=== PATIENT | female | born 1940 | race Caucasian/White ===

== ENCOUNTER 2021-02-02 14:15 | Inpatient (IN) | payer MEDICARE ==
[~2021-02-02] VITALS: Ht 154.9 cm; Wt 76.5 kg
--- NOTE | 2021-02-02 16:13 | Progress Note ---
Progress Note Postoperative anemia due to acute blood loss Closed fracture of left hip Closed fracture of neck of left femur Status post total replacement of left hip Closed subcapital fracture of left femur Closed fracture of left olecranon process Fall at home, initial encounterw Sinus tachycardia Probable sepsis Moderate episode of recurrent major depressive disorder Essential hypertension Anxiety disorder Type 2 diabetes mellitus with hyperglycemia, with long-term current use of insulin Gastroesophageal reflux disease Resolved Hospital Problems No resolved problems to display. Arpita gibbons 80 y.o.femalewho was admitted to [facility] on01/30/2021 Arpita gibbons 80 y.o.femaleadmitted for Closed subcapital fracture of left femur. Patient has a history of type II diabetes on insulin,GERD, anxiety and depression, and hypertension. Patient had a fall at home earlier today. She t ripped on a rock and landed on her left side on concrete. She was unable to get up or ambulate after the fall and also left elbow pain along with the left hip pain. Patient has a left olecranon fracture and a left femur fracture. Patient had elevated glucose and an elevated white count. She is also been having tachycardia. She states her blood sugar is high because she had eaten pizza for lunch and had not been home to take her insulin yet. S/p fall.s/p left femoral neck fracture s/p total left hip arthroplastyPOD 2. Left olecranon fracture s/p sling in place.Post operative management. Medically cleared for IPR. JEFF WASHBURN DO Feb 02, 2021 16:13
[2021-02-02] MEDS ORDERED: diphenhydrAMINE 25 MG TAB (BENADRYL) PO PRN (16:15)
[2021-02-02] MEDS ORDERED: ALPRAZolam 0.25 MG (XANAX) TAB PO PRN (16:15)
[2021-02-02] MEDS ORDERED: HYDROcodone/APAP 5 MG/325 MG (LORTAB) TAB PO PRN (16:15)
[2021-02-02] MEDS ORDERED: CALCIUM CARBONATE 500 MG (TUMS) TAB.CHEW PO PRN (16:15)
[2021-02-02] MEDS ORDERED: MELATONIN 3 MG TABLET PO PRN (16:15)
[2021-02-02] MEDS ORDERED: guaiFENesin/CODEINE (ROBITUSSIN AC) 10ML UDC PO PRN (16:15)
[2021-02-02] MEDS ORDERED: LOPERAMIDE 2 MG (IMODIUM) TABLET PO PRN (16:15)
[2021-02-02] MEDS ORDERED: DOCUSATE SODIUM 100 MG (COLACE) CAP PO PRN (16:15)
[2021-02-02] MEDS ORDERED: FLEET ENEMA ADULT 1 EA BTL PR PRN (16:15)
[2021-02-02] MEDS ORDERED: LACTULOSE SYRUP 10GM/15ML (ENULOSE) 30ML UDC PO PRN (16:15)
[2021-02-02] MEDS ORDERED: ONDANSETRON 4 MG (ZOFRAN) ORAL DISSOLVE TAB PO PRN (16:15)
[2021-02-02] MEDS ORDERED: BISACODYL 10 MG SUPP (DULCOLAX) PR PRN (16:15)
[2021-02-02 17:15] VITALS: BP 159/74
[2021-02-02] MEDS ORDERED: CYCLOBENZAPRINE 10 MG (FLEXERIL) TAB PO PRN (18:00)
[2021-02-02] MEDS: DOXYCYCLINE 100 MG (VIBRAMYCIN) TABLET PO SCH (19:55)
[2021-02-02 20:08] VITALS: BP 134/63
[2021-02-02] MEDS: FAMOTIDINE 20 MG (PEPCID) TABLET PO SCH (21:53)
[2021-02-02] MEDS: polyethylene glycoL POWDER 17 GM (MIRALAX) PACK PO SCH (21:53)
[2021-02-02] MEDS: SENNA W/DOCUSATE (SENOKOT S) TABLET PO SCH (21:54)
[2021-02-02] MEDS: DOCUSATE SODIUM 100 MG (COLACE) CAP PO SCH (21:54)
[2021-02-02] MEDS: inSUlin NPH (NovoLIN N) 1 UNIT/0.01 ML (CHARGE PER UNIT) SQ SCH (21:55)
[2021-02-02] MEDS: ACETAMINOPHEN 325 MG TABLET PO PRN (21:55)
[2021-02-02] MEDS: SIMvastatin 10 MG (ZOCOR) TAB PO SCH (21:55)
[2021-02-02] MEDS: inSUlin ASPART (NovoLOG) 1 UNIT/0.01 ML (CHARGE PER UNIT) SC SCH (22:03)
[2021-02-03] MEDS: inSUlin ASPART (NovoLOG) 1 UNIT/0.01 ML (CHARGE PER UNIT) SC SCH ×4 (06:00→21:33)
[2021-02-03 06:09] LABS: BASOPHILS # (AUTO) 0.1 10^3/uL (0.0-0.1); BASOPHILS % (AUTO) 1 % (0-10); EOSINOPHILS # (AUTO) 0.7 10^3/uL (0.0-0.3); EOSINOPHILS % (AUTO) 8 % (0-10); HEMATOCRIT 33 % (35-52); LYMPHOCYTES # (AUTO) 2.2 10^3/uL (1.0-4.0); LYMPHOCYTES % (AUTO) 25 % (12-44); MEAN CORPUSCULAR HEMOGLOBIN 29 pg (25-34); MEAN CORPUSCULAR HGB CONC 33 g/dL (32-36); MEAN CORPUSCULAR VOLUME 87 fL (80-99); MONOCYTES # (AUTO) 0.5 10^3/uL (0.0-1.0); MONOCYTES % (AUTO) 6 % (0-12); NEUTROPHILS # (AUTO) 5.3 10^3/uL (1.8-7.8); NEUTROPHILS % (AUTO) 60 % (42-75); PLATELET COUNT 204 10^3/uL (130-400); WHITE BLOOD COUNT 8.8 10^3/uL (4.3-11.0)
[2021-02-03] MEDS ORDERED: glipiZIDE XL 5 MG (GLUCOTROL XL) TAB PO SCH (06:30)
[2021-02-03] MEDS: VENlafaxine XR 75 MG (EFFEXOR XR) CAP PO SCH (06:36)
[2021-02-03] MEDS: DOXYCYCLINE 100 MG (VIBRAMYCIN) TABLET PO SCH ×2 (06:37→16:58)
[2021-02-03 07:00] LABS: ALBUMIN 3.3 GM/DL (3.2-4.5); CHLORIDE 106 MMOL/L (98-107); SODIUM 143 MMOL/L (135-145)
[2021-02-03 07:01] LABS: CALCIUM 8.9 MG/DL (8.5-10.1)
[2021-02-03 07:02] LABS: GLUCOSE 108 MG/DL (70-105)
[2021-02-03 07:03] LABS: TOTAL PROTEIN 5.8 GM/DL (6.4-8.2)
[2021-02-03 07:04] LABS: BILIRUBIN,TOTAL 0.6 MG/DL (0.1-1.0); CARBON DIOXIDE 27 MMOL/L (21-32)
[2021-02-03 07:06] LABS: ALKALINE PHOSPHATASE 57 U/L (40-136); CREATININE SERUM 0.72 MG/DL (0.60-1.30); GFR ESTIMATED > 60
[2021-02-03 07:07] LABS: BUN/CREATININE RATIO 19
[2021-02-03 07:09] LABS: ALANINE AMINOTRANSFERASE 19 U/L (0-55)
[2021-02-03 07:45] VITALS: BP 192/87
[2021-02-03] MEDS: polyethylene glycoL POWDER 17 GM (MIRALAX) PACK PO SCH ×2 (08:09→21:38)
[2021-02-03] MEDS: KCL 10 MEQ TAB (MICRO K) PO SCH ×2 (08:09→21:29)
[2021-02-03] MEDS: DOCUSATE SODIUM 100 MG (COLACE) CAP PO SCH ×2 (08:09→21:29)
[2021-02-03] MEDS: LOSARTAN 100 MG (COZAAR) TABLET PO SCH (08:09)
[2021-02-03] MEDS: FAMOTIDINE 20 MG (PEPCID) TABLET PO SCH (08:09)
[2021-02-03] MEDS: SENNA W/DOCUSATE (SENOKOT S) TABLET PO SCH ×2 (08:09→21:28)
[2021-02-03] MEDS: inSUlin NPH (NovoLIN N) 1 UNIT/0.01 ML (CHARGE PER UNIT) SQ SCH ×2 (08:24→21:33)
--- NOTE | 2021-02-03 08:48 | Physical Therapy Evaluation ---
PT Evaluation-General Medical Diagnosis Admission Date Feb 02, 2021 at 17:00 Medical Diagnosis: (L) hip fx Onset Date: Jan 30, 2021 Therapy Diagnosis Therapy Diagnosis: Impairment of gait and mobility Precautions Precautions/Isolations: Fall Prevention, Standard Precautions Weight Bear Status Right Lower Extremity: Right Full Weight Bearing Left Lower Extremity: Left Weight Bearing/Tolerated Referral Physician: Nette Lawson Reason for Referral: Evaluation/Treatment, Strengthening, Gait Medical History Pertinent Medical History: DM, Fractures, GERD, HTN Additional Medical History anxiety, depression, pelvic fx x 2, ankle fx, wrist fx Reviewed History: Yes Social History Home: Single Level Current Living Status: Spouse Entry Into Home: Stairs Without Railing PT Steps Into Home: 3 Pt reports her does all the grocery shopping and most of the cooking and cleaning. Prior Prior Level of Function SCALE: Activities may be completed with or without assistive devices. 8-Xvorliincy-uxcrpvz completes the activity by him/herself with no assistance from a helper. 5-Set-up or Clean-up Assistance-helper sets up or cleans up; patient completes activity. [place] assists only prior to or following the activity. 4-Supervision or Touching Assistance-helper provides verbal cues and/or touching/steadying and/or contact guard assistance as patient completes activity. Assistance may be provided throughout the activity or intermittently. 3-Partial/Moderate Assistance-helper does LESS THAN HALF the effort. [place] lifts, holds or supports trunk or limbs, but provides less than half the effort. 2-Substantial/Maximal Assistance-helper does MORE THAN HALF the effort. [place] lifts or holds trunk or limbs and provides more than half the effort. 7-Femsnizon-wsyfjw does ALL the effort. Patient does none of the effort to complete the activity. Or, the assistance of 2 or more helpers is required for the patient to complete the activity. If activity was not attempted, code reason: 7-Patient Refused. 9-Not Applicable-not attempted and the patient did not perform the activity before the current illness, exacerbation or injury. 10-Not Attempted due to Environmental Limitations-(lack of equipment, weather restraints, etc.). 88-Not Attempted due to Medical Conditions or Safety Concerns. Bed Mobility: 6 Transfers (B,C,W/C): 6 Gait: 6 Indoor Mobility (Ambulation): Independent Stairs: Needed Some Help PT Evaluation-Current Subjective 80 7/o female admitted to [facility] on 01/30/21 s/p fall with resulting (L) femur fx and (L) olecranon fx. Pt underwent (L) TUTU. Pain Numeric Pain Scale: 8 Location: Left Location Body Site: Hip Objective Patient Orientation: Person, Place, Time, Situation Attachments: Guerrero Catheter ROM/Strength ROM Lower Extremities (L) hip 60 degrees, (L) hip extension to neutral, Ankle DF to neutral (B) Strength Lower Extremities (L) knee 5/5, (L) hip flex 2/5, (L) hip ext 2/5, (L) hip abd 2/5, (R) 4/5 throughout Sensory Vision: Functional Hearing: Functional Transfers Roll Left & Right (QC): 1 Sit to Lying (QC): 1 Lying to Sitting/Side of Bed(Q: 1 Sit to Stand (QC): 2 Chair/Nyl-nk-Ovbfd Xfer(QC): 2 Toilet Transfer (QC): 1 Car Transfer (QC): 88 Pt max assist for bed mobility due to leg and trunk weakness. Weakness from disuse and pain inhibition. Gait Does the Patient Walk?: Yes Mode of Locomotion: Walk Anticipated Mode of Locomotion: Walk Walk 10 feet (QC): 2 Walk 50 ft with 2 Turns(QC): 88 Walk 150 ft (QC): 88 Walking 10ft/uneven surface-QC: 2 Gait Assistive Device: FWW Comments/Gait Description Platform walker, needs assist to advance walker and advance (L) leg, needs assist for wt shift and verbal cues for sequence Wheelchair Training Does the Pt Use a Wheelchair?: No Wheel 50 ft with 2 turns (QC): 9 Wheel 150 ft (QC): 9 Stairs 1 Step (curb) (QC): 88 4 Steps (QC): 88 12 Steps (QC): 88 Balance Sitting Static: Good Sitting Dynamic: Good Standing Static: Poor Standing Dynamic: Poor Picking up an Object (QC): 88 Assessment/Needs Pt has limited strength in the (L) LE. She has impaired bed mobility, reduced ability to transfer, and difficulty with gait. She will benefit from PT to improve strength, ROM, and function to promote discharge to home with . Pt has a history of falls and was inactive prior to this admission. This history of prior immobility will result in slower progress toward goals. Rehab Potential: Good PT Short Term Goals Short Term Goals Time Frame: Feb 10, 2021 Roll Left & Right: 4 Sit to lyin Lying to sitting on side of be: 4 Sit to stand: 4 Chair/fbr-ms-ualmf transfer: 4 Toilet transfer: 4 Car transfer: 3 Walk 10 feet: 4 Walk 50 feet with two turns: 4 PT Correction Goals Quote Clerk Goals PT Correction Goals Time Frame: Feb 17, 2021 Roll Left & Right (QC): 6 Sit to Lying (QC): 6 Lying-Sitting on Side/Bed(QC): 6 Sit to Stand (QC): 6 Chair/Qbr-if-Ligiq Xfer(QC): 6 Toilet Transfer (QC): 5 Car Transfer (QC): 5 Does the Patient Walk: Yes Walk 10 feet (QC): 5 Walk 50ft with 2 Turns (QC): 5 Walk 150 ft (QC): 5 Walking 10ft on Uneven Surface: 5 1 Step (curb) (QC): 5 4 Steps (QC): 5 12 Steps (QC): 88 Picking up an Object (QC): 88 Wheel 50 feet with 2 turns (QC: 9 Wheel 150 feet: 9 PT Plan Problem List Problem List: Activity Tolerance, Functional Strength, Safety, Balance, Gait, Transfer, Bed Mobility, ROM Treatment/Plan Treatment Plan: Continue Plan of Care Treatment Plan: Bed Mobility, Functional Activity Tamiko, Functional Strength, Group Therapy, Gait, Safety, Therapeutic Exercise, Transfers Treatment Duration: Feb 17, 2021 Frequency: 11 times per week Estimated Hrs Per Day: 1.5 hours per day Patient and/or Family Agrees t: Yes Discharge Recommendations Barriers to Progress pre-existing falls and immobility Target Placement home Time/GCodes Time In: 800 Time Out: 900 Total Billed Treatment Time: 60 Total Billed Treatment visit, eval high complexity 60 min MORIS MCCRACKEN PT Feb 03, 2021 08:48
--- NOTE | 2021-02-03 09:59 | Occupational Therapy Eval ---
OT Evaluation-General/PLF Medical Diagnosis Admission Date Feb 02, 2021 at 17:00 Medical Diagnosis: L TUTU (anterior); s/p ORIF L olecranon Onset Date: Jan 30, 2021 Therapy Diagnosis Therapy Diagnosis: Decreased ADL status Precautions Precautions/Isolations: Fall Prevention, Standard Precautions Weight Bear Status WBAT LLE, NWB LUE (however, use of platform walker for safety, inability to maintain with good safety) Referral Physician: Nette Lawson Referral Reason: Activity Tolerance, Self Care, Evaluation/Treatment, Strengthening/ROM Medical History Pertinent Medical History: DM, Fractures, GERD, HTN Additional Medical History DMII, GERD, anx/ dep, HTN, spinal surgery. Current History Pt fell at home, closed fx of L femur s/p L anterior TUTU and L elbow olecranon fx with ORIF/ sling placed. Reviewed History: Yes Social History Home: Single Level Current Living Status: Spouse Entry Into Home: Stairs Without Railing Steps Into Home: 3 ADL-Prior Level of Function SCALE: Activities may be completed with or without assistive devices. 7-Ermjnhtyhy-zxequps completes the activity by him/herself with no assistance from a helper. 5-Set-up or Clean-up Assistance-helper sets up or cleans up; patient completes activity. [place] assists only prior to or following the activity. 4-Supervision or Touching Assistance-helper provides verbal cues and/or touching/steadying and/or contact guard assistance as patient completes activity. Assistance may be provided throughout the activity or intermittently. 3-Partial/Moderate Assistance-helper does LESS THAN HALF the effort. [place] lifts, holds or supports trunk or limbs, but provides less than half the effort. 2-Substantial/Maximal Assistance-helper does MORE THAN HALF the effort. [place] lifts or holds trunk or limbs and provides more than half the effort. 1-Iacpfhqck-rletbz does ALL the effort. Patient does none of the effort to complete the activity. Or, the assistance of 2 or more helpers is required for the patient to complete the activity. If activity was not attempted, code reason: 7-Patient Refused. 9-Not Applicable-not attempted and the patient did not perform the activity before the current illness, exacerbation or injury. 10-Not Attempted due to Environmental Limitations-(lack of equipment, weather restraints, etc.). 88-Not Attempted due to Medical Conditions or Safety Concerns. ADL PLOF Comments Pt was IND with ADLs, completes IADLs (cooking/ cleaning) Self Care: Independent Functional Cognition: Independent DME/Equipment: Bath Bench, Tub/Shower DME/Equipment Comments walker, w/c, sc, tub/ shower. 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 Pt expresses fatigue, agrees to tx. Pt AxO, very pleasant pt. Pt expresses ache/ throbbing only in elbow region (constant); presents in wrapping and sling with elbow flexed at ~90*. Mental Status/Objective Patient Orientation: Person, Place, Situation, Normal For Age Attachments: Guerrero Catheter Current Glasses/Contacts: Yes Hearing Aids: No Dentures/Partials: No Hand Dominance: Right Upper Extremity ROM WFL BUE (excluding elbow/ supination and pronation and wrist mobilty due to soft splint LUE) Upper Extremity Coordination WFL BUE Upper Extremity Sensation WFL BUE (no tingling/ numbness) Upper Extremity Strength WFL BUE (excluding elbow/ wrist/ forearm DNT LUE) ADL-Treatment Eating (QC): 5 (s/u for some tasks.) Oral Hygiene (QC): 6 (able to manipulate and complete with IND while in bed.) Shower/Bathe Self (QC): 2 (Pt requires CGA EOB during sponge bath during session, requires frequent rest breaks. Pt requires assist with LEs and assist in stance for bottom. ) Upper Body Dressing (QC): 3 (s/u gown, however, likely mod A with threading shirt (does not have materials here)) Lower Body Dressing (QC): 1 (TD at this time due to Ax2 for sit to stand and assist for threading.) On/Off Footwear (QC): 1 (TD at this time. Pt requires TD doff/ donning. Pt educated on use of dressing stick and sock aide (completes sock donning wiht aide with s/u and min A)) Toileting Hygiene (QC): 3 (Ax2 to stand, however, completes bottom care with CGA with RUE in stance.) Other Treatments Pt in chair upon arrival. OT assesses ROM/ MMT, with regard to precautions. Pt expresses immense fatigue, however, agrees to complete sponge bath/ ADLs while in bed. Pt sit to stand with mod Ax2, ambulates with use of platform walker for balance and cues for placement with CGAx2 for safety. Sits EOB, decreased core balance. Pt expresses every fall she has typically is due to falling backwards. Pt unable to maintain BLE on floor for balance EOB, continuous cues to bring weight forward. Pt fatigued and leans back on pillows. Pt is aware of L UE and LLE precautions, though is educated once more on each. Pt educated on shoulder/ wrist/ hand ROM throughout stay. Pt is given red therapy sponge to address L hand/ forearm swelling (completes while sponge bath prepped, no pain). Pt completes sponge bath EOB with max RB 2* fatigue/ decreased core strength. Pt requires cues/ assist for L sling and dressing L prior to R UE. Pt brought from sit to supine with max A, reaches HOB with TD (max Ax2). Pt completes oral care with HOB elevated; educated on continued therapy later in day but RB until TAIL PULLER- desires nap. Pt left in bed with all needs met, call light in reach, L sling donned and pillow placed under elbow for increased support. Education OT Patient Education: Correct positioning, Energy conservation, Exercise program, Home exercise program, Modified ADL techniques, Progress toward Goal/Update tx plan, Purpose of tx/functional activities, Reviewed precautions, Rehab process, Safety issues, Transfer techniques, Use of adapted equipment Teaching Recipient: Patient Teaching Methods: Demonstration, Discussion Response to Teaching: Verbalize Understanding, Return Demonstration, Reinforcement Needed OT Short Term Goals Short Term Goals Eatin Oral hygiene: 6 Toileting hygiene: 4 Shower/bathe self: 4 Upper body dressin Lower body dressin Putting on/taking off footwear: 5 OT Correction Goals Correction Goals Time Frame: Feb 17, 2021 Eating (QC): 6 Oral Hygiene (QC): 6 Toileting Hygiene (QC): 6 Shower/Bathe Self (QC): 6 Upper Body Dressing (QC): 6 Lower Body Dressing (QC): 6 On/Off Footwear (QC): 6 Additional Goals: 1-Demonstrate ADL Tasks, 2-Verbalize Understanding, 3- ImproveStrength/Tamiko 1=Demonstrate adherence to instructed precautions during ADL tasks. 2=Patient will verbalize/demonstrate understanding of assistive devices/modifications for ADL. 3=Patient will improve strength/tolerance for activity to enable patient to perform ADL's. OT Education/Plan Problem List/Assessment Assessment: Decreased Activ Tolerance, Decreased UE Strength, Dependent Transfers, Impaired Bed Mobility, Impaired Funct Balance, Impaired I ADL's, Impaired Self-Care Skills, Restricted Funct UE ROM Discharge Recommendations Plan/Recommendations: Continue POC Therapy Discharge Recommendati: Home & Family, Post Acute OT Equpiment Recommendations-D/C: Extended Bath Bench, Rails on Tub/Shower, Hip Kit Treatment Plan/Plan of Care Treatment,Training & Education: Yes Patient would benefit from OT for education, treatment and training to promote independence in ADL's, mobility, safety and/or upper extremity function for ADL's. Plan of Care: ADL Retraining, Caregiver Training, Functional Mobility, Group Exercise/Act as Ind, Orthotic Fitting/Training, UE Funct Exercise/Act, W/C Management Training Treatment Duration: Feb 17, 2021 Frequency: 5 times per week Estimated Hrs Per Day: .25 hour per day Agreement: Yes Rehab Potential: Fair Time/GCodes Start Time: 09:00 Stop Time: 10:00 Total Time Billed (hr/min): 60 Billed Treatment Time 1, EVM, ADL 3 (60) CLARI SCHNEIDER OTR Feb 03, 2021 09:59
[2021-02-03 10:10] VITALS: BP 167/74
[2021-02-03] MEDS: meTOprolol TARTRATE 25 MG (LOPRESSOR) TABLET PO SCH ×2 (10:20→21:29)
[2021-02-03] MEDS ORDERED: NS IV 1000 ML 1,000 ML IV SCH (10:45)
[2021-02-03 11:10] LABS: BILIRUBIN,URINE NEGATIVE (NEGATIVE); CLARITY,URINE CLEAR; COLOR,URINE YELLOW; GLUCOSE, URINE (UA) 3+ (NEGATIVE); KETONES,URINE NEGATIVE (NEGATIVE); LEUKOCYTE ESTERASE ,URINE NEGATIVE (NEGATIVE); NITRITE,URINE NEGATIVE (NEGATIVE); PROTEIN,URINE NEGATIVE (NEGATIVE)
--- NOTE | 2021-02-03 11:12 | ST Cognitive Linguistic Eval ---
Speech Evaluation-General Medical Diagnosis L TUTU (anterior); s/p ORIF L olecranon Onset Date: Jan 30, 2021 Therapy Diagnosis Therapy Diagnosis: Cognitive-communication Referral Referring Physician: Dr. Lawson Medical History Pertinent Medical History: DM, Fractures, GERD, HTN Reviewed History: Yes Social History Current Living Status: Spouse Speech PLF-Current Status Prior Level of Function Patient lives at home with her who assists her with her daily needs. Subjective Patient was pleasant and cooperative with the cognitive assessment. Language Eval: Auditory Comprehends Simple Yes/No Ques: Functional Indent/Objects Multiple Lee: Functional Ident/Pics in Multiple Lee: Functional Follows 1-Step Commands: Functional Follows Complex Directions: Mild Follows General Conversations: Functional Language Eval: Verbal Language Completes Spontaneous Greeting: Functional Produces Auto, Serial Info: Functional Imitates Simple Words/Phrases: Functional Word Finding: Mild Requests Basic Needs: Functional States Basic Personal Info: Functional Expresses Complex Ideas: Mild Objective Cognitive Domain Attention: WNL Memory: WNL Problem Solving: Functional Executive Functions: WNL Visuospatial Skills: WNL Composite Severity Rating: WNL Objective Formal/Standardized Tests [facility] Mental Status ([facility]) Results 25/30, 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 The patient was given the SLUMS at bedside with a score of 25/30 obtained. This score is within the MNCD range of function. ST services are indicated at this time for improving safety awareness and recall of new information. Speech Patient Assess Expression of Ideas/Wants: Exhibits (3) Understanding Verbal Content: Understands (4) Brief Interview-Mental Status: Yes Repetition of Three Words: Three (3) Temporal Orientation: Year: Correct (3) Temporal Orientation: Month: Accurate within 5 days(2) Temporal Orientation: Day: Correct (1) Recall : Wear to say "Sock": Yes,after cueing (1) Recall : Color: Yes, after cueing (1) Recall : Bed: Yes,after cueing (1) Memory/Recall Ability: Current season, That he or she is in a hsp/hsp unit Speech Short Term Goals Short Term Goals Short Term Goals 1) Patient will complete safety awareness tasks at 90% or greater with minimal cues. 2) Patient will complete new information recall tasks at 90% or greater with minimal cues. Speech Half-Way Goals Half-Way Goals Patient will demonstrate the ability to communicate and complete daily tasks with minimal assist. Speech-Plan Patient/Family Goals Patient/Family Goals: Patient plans on returning to her home where she lives with her . Treatment Plan Speech Therapy Treatment Plan: Continue Plan of Care Treatment Duration: Feb 17, 2021 Frequency: 4 times per week Estimated Hrs Per Day: .5 hour per day Rehab Potential: Fair Barriers to Learning: Patient's current medical status, age Pt/Family Agrees to Plan: Yes Safety Risks/Education Teaching Recipient: Patient Teaching Methods: Discussion Response to Teaching: Verbalize Understanding Education Topics Provided: Safety within her room, communication of wants/needs Time Speech Therapy Time In: 11:00 Speech Therapy Time Out: 11:30 Total Billed Time: 30 Billed Treatment Time 1, MAYELA ARCHER [address] Feb 03, 2021 11:12
[2021-02-03] MEDS ORDERED: glipiZIDE XL 5 MG (GLUCOTROL XL) TAB PO ONE (11:15)
--- NOTE | 2021-02-03 11:15 | Diagnostic Imaging Report ---
Indication: Cough Findings: Some mild prominence of the upper lobe interstitial markings which may be chronic. No alveolar consolidation. Rib deformity on the left is believed old and healed at the 6th rib. No effusion or pneumothorax. No overt failure pattern. Impression: Some upper lobe interstitial opacities likely chronic but I have no previous for comparison. No overt failure pattern, alveolar consolidation or acute pleural pathology. Dictated by: Dictated on workstation # [id number]
[2021-02-03 11:18] LABS: BACTERIA,URINE NEGATIVE /HPF; SQUAMOUS EPITHELIAL CELL,UR 0-2 /HPF; WBC,URINE RARE /HPF
[2021-02-03] MEDS: BETHANECHOL 25 MG (URECHOLINE) TAB PO SCH ×3 (13:12→21:29)
--- NOTE | 2021-02-03 14:26 | Therapy Group Daily Note ---
Therapy Daily Group Note Patient Education Topic Home Safety, Other List Below (pain management) Exercises LE Seated Exercise, UE Exercise Session Ratio (pt:therapist): 8:2 Goal of Session: Education on ARU Expectations, Home Safety Strategies, UE/LE Strengthing, Other (list) (pain management) Goal Met for this Session: Yes Pt Benefit of Group: Contributions to Others, F/U Use of Strategies @Home, Increased Functional Safety, Increased Functional Strength, Improved Cognition, Recognition of Peers, Socialization Other/Notes Pt transported via w/c to therapy gym for OT/PT group. Group consisted of introductions (name, place living, childhood memory), socialization, B UE/LE seated exercises, education of pain management and home safety activity. Pt introduced self appropriately and actively listened to peers. Pt was able to complete B UE/LE seated exercises though fatigued quickly. Pt acknowledged understanding of pain management education by nodding/gesturing affirmatively. Pt attended to home safety activity though did not attempt to answer questions. After therapy, pt sitting in recliner with call light/phone in reach. All needs met in room. Start Time: 13:00 Stop Time: 14:00 Total Billed Treatment Time: 60 Total Billed Treatment 1-GRP KALIE MURRAY Feb 03, 2021 14:26
--- NOTE | 2021-02-03 14:40 | History & Physical-Hospitalist ---
JUANA FOFANA MD 02/03/21 1440: History of Present Illness HPI/Chief Complaint Pt is a 80yoCF with a PMH of HTN, DM, HLD, depression who is being admitted to IRF following left femur fracture. She tripped over a rock and was fell on her left side on concrete. She was unable to get up and walk and also complained of left elbow pain. She was admitted to [facility] in [place] and underwent total left hip arthoplasty. She was also found to have a left olecranon fracture and this was managed nonoperatively and she has a sling in place. She reports she is feeling well and her pain is controlled. She did have a BM this morning and feeling well. Source: patient Date Seen 02/03/21 Time Seen by a Provider: 14:40 Attending Physician Nette Washburn DO PCP Referring Physician Date of Admission Feb 02, 2021 at 17:00 Home Medications & Allergies Home Medications Reviewed patient Home Medication Reconciliation performed by pharmacy medication reconciliations laboratory mechanical technician and/or nursing. Patients Allergies have been reviewed. Allergies Allergies Coded Allergies metformin (Verified Allergy, Unknown, 02/02/21) pantoprazole (Verified Allergy, Unknown, 02/02/21) Past Nphpdlg-Bkilkh-Fgpqnf Hx Patient Social History Tobacco Use?: No Smoking Status: Never a Smoker Smokeless Tobacco Frequency: Never a User Use of E-Cig and/or Vaping dev: No Substance use?: No Alcohol Use?: No Pt feels they are or have been: No Immunizations Up To Date First/Initial COVID19 Vaccinat: 2020 Second COVID19 Vaccination Shola: 2020 Tetanus Booster (TDap): More Than 5 Years Hepatitis A: Yes Hepatitis B: Yes Current Status status: No Advance Directives: No Communicates: Verbally Primary Language: Ugandan Preferred Spoken Language: Ugandan Is interpretation needed?: No Sensory deficits: Vision impairment Implanted or Applied Medical D: Orthopedic hardware Past Medical History Hypertension Diabetes, Insulin dep Family Medical History Reviewed Nursing Family Hx No Pertinent Family Hx Review of Systems Constitutional: No chills, No fever Respiratory: No cough, No short of breath Physical Exam Physical Exam Vital Signs Vital Signs - First Documented 02/02/21 17:15 Temp 36.2 Pulse 116 Resp 20 B/P (MAP) 159/74 (102) Pulse Ox 94 O2 Delivery Room Air Capillary Refill : Height, Weight, BMI Height: '" Weight: lbs. oz. kg; 32.84 BMI Method: General Appearance: No Apparent Distress, WD/WN, Chronically ill, Obese HEENT: PERRL/EOMI, Moist Mucous Membranes; No Scleral Icterus (L), No Scleral Icterus (R) Neck: Normal Inspection, Supple Respiratory: Lungs Clear, No Accessory Muscle Use, No Respiratory Distress Cardiovascular: Regular Rate, Rhythm, No JVD, No Murmur Gastrointestinal: Normal Bowel Sounds, Non Tender, Soft Extremity: No Calf Tenderness, No Pedal Edema Neurologic/Psychiatric: Alert, Oriented x3, Normal Mood/Affect Skin: Normal Color, Warm/Dry Results Results/Procedures Labs Laboratory Tests 02/03/21 05:55 Patient resulted labs reviewed. Imaging: Reviewed Imaging Report [facility] [place], [place] NAME: [facility] REC#: [id number] PT STATUS: ADM IN : 1940 PHYSICIAN: NETTE WASHBURN DO ADMIT DATE: 02/02/21/[facility] Signed Date of Exam:02/03/21 CHEST 1 VIEW, AP/PA ONLY Indication: Cough Findings: Some mild prominence of the upper lobe interstitial markings which may be chronic. No alveolar consolidation. Rib deformity on the left is believed old and healed at the 6th rib. No effusion or pneumothorax. No overt failure pattern. Impression: Some upper lobe interstitial opacities likely chronic but I have no previous for comparison. No overt failure pattern, alveolar consolidation or acute pleural pathology. Dictated by: Dictated on workstation # [id number] Dict: 02/03/21 1112 Trans: 02/03/[address] [facility] [id number] Interpreted by: AFTAB MILNER Electronically signed by: AFTAB MILNER 02/03/21 1151 Assessment/Plan Admission Diagnosis left hip fracture Admission Status: Inpatient Order (span 2 midnights) Reason for Inpatient Admission: see below Assessment and Plan left hip fracture olecranon fracture IDDMII with hyperglycemia HTN HLD Anxiety/Depresison Hypokalemia Gregory dependency Plan Continue with PT/OT for intensive therapy may benefit from pelvic PT as well Continue home meds SSI Replace potassium pain regimen Bowel regimen NETTE WASHBURN DO 02/03/212053: Review of Systems Constitutional: see HPI Physical Exam Physical Exam General Appearance: No Apparent Distress Assessment/Plan Admission Diagnosis REHAB/MEDICAL ASSESSMENT AND PLAN: REHAB IMPAIRMENT GROUP: Left hip fracture ETIOLOGIC DIAGNOSIS: Left hip fracture The comorbidities that impact the patients function and/or functional outcome by: DM, HTN, HLP, fall risk, urinary retention requiring gregory cath maintenance REHAB PLAN: The patient is being admitted to our comprehensive inpatient rehabilitation facility and can tolerate the intensity of service consisting of at least: 180 minutes of therapy a day, 5 out of 7 days a week Rehab treatment will consist of: PT and OT will help with ambulatory skills and increase independence in ADLs in order to regain enough function to return to independent living The patient/family has a good understanding of our discharge process and will benefit from an interdisciplinary inpatient rehabilitation program. The patient has potential to make improvement and is in need of at least two of the follo wing multidisciplinary therapies including but not limited to physical, occupational, speech, and prosthetics and orthotics. Additionally the patient will need services from respiratory, nutritional services, wound care, psychology, etc. (Customize this to each patient). Given the patients complex condition and risk of further medical complications, rehabilitation services cannot be safely or effectively provided at a lower level of care such as a usp facility. BARRIERS TO DISCHARGE: Advanced age with severe debility ESTIMATED LOS: 10 days DISPOSITION: Home with family RELEVANT CHANGES SINCE PREADMISSION SCREENING: I have compared the patients medical and functional status at the time of the preadmission screening and there are: no changes PROGNOSIS: Fair REHABILITATION GOALS: 1. PT and OT will help with ambulatory skills and increase independence in ADLs in order to regain enough function to return to independent living All the above goals were reviewed with the patient and he/she is in agreement. By signing this document, I acknowledge that I have personally performed a full physical examination on this patient within 24 hours of admission to this inpatient rehabilitation facility and have determined the patient to be able to tolerate the above course of treatment at an intensive level for a reasonable period of time. I will be completing a detailed individualized Plan of Care for this patient by day #4 of the patients stay based upon the Preadmission Screen, the Post-Admission Evaluation, and the therapy evaluations. Admission Status: Inpatient Order (span 2 midnights) Reason for Inpatient Admission: irf Diagnosis/Problems Diagnosis/Problems (1) Fracture of femoral neck, left JUANA FOFANA MD Feb 03, 2021 14:40 NETTE WASHBURN DO Feb 03, 2021 20:54
[2021-02-03 20:19] VITALS: BP 165/89
[2021-02-03] MEDS ORDERED: amLODIPine 5 MG (NORVASC) TAB PO ONE (21:00)
--- NOTE | 2021-02-03 21:00 | Individualized Plan of Care ---
Individualized Plan of Care Rehab Nursing IPOC Order Admission Date Feb 02, 2021 at 17:00 Current Orders Orders Admission Order(Inpt,Obs,Sdc) (02/02/21 16:05) Vital Signs: Per Unit Policy ( (02/02/21 16:05) Marcel Olsen (02/02/21 16:05) Sequential Compression Device .admit (02/02/21 16:05) Organizational Research Consultant-Inpt Rehab Con (02/02/21 16:05) Rehab Nursing Orders-Ipoc (02/02/21 16:05) Physical Therapy Rehab Orders (02/02/21 16:05) Occupational Therapy Rehab Ord (02/02/21 16:05) Speech Therapy Rehab Orders (02/02/21 16:05) Cbc With Automated Diff (02/03/21 06:00) Comprehensive Metabolic Panel (02/03/21 06:00) Precautions (Aru) (02/02/21 16:05) Rehab-Intensity Of Therapy (02/02/21 16:05) Initiate Admission Nursing Pro .admission (02/02/21 16:05) Acetaminophen Tablet/Caplet (Tylenol T (02/02/21 16:15) Alprazolam Tablet (Xanax Tablet) (02/02/21 16:15) Calcium Carbonate Chew Tablet (Antacid C (02/02/21 16:15) Diphenhydramine Tablet (Benadryl Tablet) (02/02/21 16:15) Docusate Sodium Capsule (Colace Capsule) (02/02/21 21:00) Docusate Sodium Capsule (Colace Capsule) (02/02/21 16:15) Bisacodyl Suppository (Dulcolax Supposit (02/02/21 16:15) Lactulose Oral Solution (Enulose Oral So (02/02/21 16:15) Na Phos/Na Biphos Enema (Fleet Enema Badon (02/02/21 16:15) Guaifenesin/Codeine Syrup (Robitussin Ac (02/02/21 16:15) Hydrocodone/Apap 5/325 Tablet (Lortab 5 (02/02/21 16:15) Loperamide Tablet (Imodium Tablet) (02/02/21 16:15) Melatonin Tablet (Melatonin Tablet) (02/02/21 16:15) Polyethylene Glycol Powder Pkt (Miralax (02/02/21 21:00) Ondansetron Oral Dissolve Tab (Zofran (02/02/21 16:15) Senna S Tablet (Senokot S Tablet) (02/02/21 21:00) Code/Resuscitation (02/02/21 16:05) Initiate Admission Nursing Pro .admission (02/02/21 16:05) Admission Arrival Bed Request (02/02/21 17:17) Oxycodone Immediate Rel Tablet (Oxyir Ta (02/02/21 18:00) Doxycycline Hyclate Tablet (Vibramycin T (02/02/21 18:00) Cyclobenzaprine Tablet (Flexeril Tablet) (02/02/21 18:00) Famotidine Tablet (Pepcid Tablet) (02/02/21 21:00) Glipizide Xl Tablet (Glucotrol Xl Tablet (02/03/21 06:30) Insulin Nph Human (Per Unit) (Novolin N (02/02/21 21:00) Accucheck Achs ACHS (02/02/21 17:55) Insulin Aspart (Novolog) (Novolog (Charg (02/02/21 21:00) Cho 75g/M 1snack (21-2400 Deon) (02/02/21 Dinner) Losartan Tablet (Cozaar Tablet) (02/03/21 09:00) Simvastatin Tablet (Zocor Tablet) (02/02/21 21:00) Venlafaxine Xr Capsule (Effexor Xr Capsu (02/03/21 07:00) Hemoglobin A1c (02/03/21 06:00) Code/Resuscitation (02/02/21 18:10) Potassium Chloride (Tablet) (Klor Con Ta (02/03/21 09:00) Famotidine Tablet (Pepcid Tablet) (02/04/21 09:00) Lactic Acid Analyzer (02/03/21 09:49) Procalcitonin (Pct) (02/03/21 09:49) Ekg Tracing (02/03/21 09:49) Metoprolol Tartrate (Ir) Tab (Lopressor (02/03/21 10:00) Ns Iv 1000 Ml (Sodium Chloride 0.9%) (02/03/21 10:45) Urinalysis (02/03/21 10:55) Chest 1 View, Ap/Pa Only (02/03/21 10:38) Straight Cath (Urinary) (02/03/21 10:41) Midline Cap Change Q3D (02/03/21 10:50) Midline Dressing Change Q7D (02/03/21 10:50) Glipizide Xl Tablet (Glucotrol Xl Tablet (02/04/21 06:30) Glipizide Xl Tablet (Glucotrol Xl Tablet (02/03/21 11:15) Bethanechol Tablet (Urecholine Tablet) (02/03/21 12:45) Patient Visit (02/03/21 ) Speech Sound Lang Comp (02/03/21 ) Treat. Speech/Lang/Voice (02/03/21 ) Patient Visit (02/03/21 ) Pt Eval High Complexity (02/03/21 ) Therapeutic, Group (02/03/21 ) Amlodipine Tablet (Norvasc Tablet) (02/03/21 21:00) Amlodipine Tablet (Norvasc Tablet) (02/04/21 09:00) Amlodipine Tablet (Norvasc Tablet) (02/03/21 21:26) Rehab Nursing Orders: Ongoing Assess. of Cognitive Status, Ongoing Assess. of Function Status, Bladder Management, Bladder Scan, Bladder Training, Bowel Management, Bowel Training, Disease Management & Educaiton, DVT Prophylaxis, Fall Prevention, Fluid/Electrolyte/Nutrition Mgmt, Infection Prevention, Medication Management & Education, Management of Risks & Complications, Management of Skin Intergrity, Nutrition Management, Pain Management, Patient/Family Support, Safety Management Intensity of Therapy to be met Patient to be seen: Min.3h per day/5 of 7d PT IPOC Problem List: Activity Tolerance, Functional Strength, Safety, Balance, Gait, Transfer, Bed Mobility, ROM Treatment Plan: Continue Plan of Care Bed Mobility, Functional Activity Tamiko, Functional Strength, Group Therapy, Gait, Safety, Therapeutic Exercise, Transfers Treatment Duration: Feb 17, 2021 Frequency: 11 times per week Estimated Hrs Per Day: 1.5 hours per day OT IPOC Problems: Decreased Activ Tolerance, Decreased UE Strength, Dependent Transfers, Impaired Bed Mobility, Impaired Funct Balance, Impaired I ADL's, Impaired Self-Care Skills, Restricted Funct UE ROM OT Treatment, Training and Edu: Yes Plan of Care: ADL Retraining, Caregiver Training, Functional Mobility, Group Exercise/Act as Ind, Orthotic Fitting/Training, UE Funct Exercise/Act, W/C Management Training Treatment Duration: Feb 17, 2021 Frequency: 5 times per week Estimated Hrs Per Day: .25 hour per day [facility] Speech Therapy Treatment Plan: Continue Plan of Care Treatment Duration: Feb 17, 2021 Frequency: 4 times per week Estimated Hrs Per Day: .5 hour per day Organizational Research Consultant/Case Mgmt Organizational Research Consultant/Case Managemen: Discharge Planning Dietitian/Swinging Cut Off Saw Operator Dietitian/Swinging Cut Off Saw Operator to monitor nutritional status and make changes and/or recommendations as needed and work with speech pathology on dietary upgrades as the occur. Physician FOR[facility] NAMED [facility] Medical Issues being managed closely and that require the 24 hour availability of a physician: Patient with recent fall with advanced age and comorbidities will be at high risk for decompensation considering resolving infiltrate on chest x-ray maintain on doxycycline but evidence of volume depletion with poor IV access will need close monitoring Medical Issues: Bowel/Bladder Function, DVT Prophylaxis, Falls Precautions, Fluid/Electrolyte/Nutrition Balance, Infection Protection, Pain Management, Weight Bearing Precautions Brief Synthesis of Preadmission Screen, Post-Admission Evaluation, and Therapy Evaluations: PT and OT will focus on aggressive therapy in order to gain ambulatory skills along with independent ADLs in order to return to independent living status Medical Prognosis: Good Anticipated Length of Stay: 10 days JEFF WASHBURN DO Feb 03, 2021 21:00
[2021-02-03] MEDS ORDERED: amLODIPine 5 MG (NORVASC) TAB ONE (21:26)
[2021-02-03] MEDS: SIMvastatin 10 MG (ZOCOR) TAB PO SCH (21:28)
[2021-02-04] MEDS: glipiZIDE XL 5 MG (GLUCOTROL XL) TAB PO SCH (06:34)
[2021-02-04] MEDS: DOXYCYCLINE 100 MG (VIBRAMYCIN) TABLET PO SCH ×2 (06:34→16:48)
[2021-02-04] MEDS: BETHANECHOL 25 MG (URECHOLINE) TAB PO SCH ×4 (06:34→21:37)
[2021-02-04] MEDS: VENlafaxine XR 75 MG (EFFEXOR XR) CAP PO SCH (06:34)
[2021-02-04] MEDS: inSUlin ASPART (NovoLOG) 1 UNIT/0.01 ML (CHARGE PER UNIT) SC SCH ×4 (06:38→20:36)
[2021-02-04 07:18] VITALS: BP 153/68
--- NOTE | 2021-02-04 08:35 | PM&R Progress Note ---
Subjective HPI/CC On Admission Date Seen by Provider: Feb 04, 2021 Time Seen by Provider: 12:45 Subjective/Events-last exam 02/04/2021: This visit is via video chat due to Covid related restriction for this provider Patient in a really good mood today Bowels moved today Oxycodone doing pretty well for the left elbow pain Confused at night and called all of her family members at 0400 hrs. and her came to check on her at 4:00 this morning She is aware that she was confused and feels embarrassed about it Slums score is 25/30 so she definitely had some confusion with delirium and cognitive decline status We will monitor closely Review of Systems General: Fatigue Musculoskeletal: arm pain, leg pain Neurological: Confusion Focused Exam Lactate Level 02/03/21 10:04: Lactic Acid Level 2.09*H 02/03/21 12:30: Lactic Acid Level 1.26 Objective Exam Vital Signs Vital Signs Date Time Temp Pulse Resp B/P (MAP) Pulse Ox O2 Delivery O2 Flow Rate FiO2 02/04/21 07:18 36.2 81 18 153/68 (96) 93 Room Air Capillary Refill : General Appearance: No Apparent Distress HEENT: PERRL/EOMI, Moist Mucous Membranes; No Scleral Icterus (L), No Scleral Icterus (R) Neck: Normal Inspection, Supple Respiratory: Lungs Clear, No Accessory Muscle Use, No Respiratory Distress Cardiovascular: Regular Rate, Rhythm, No JVD, No Murmur Gastrointestinal: Normal Bowel Sounds, Non Tender, Soft Extremity: No Calf Tenderness, No Pedal Edema Neurologic/Psychiatric: Alert, Oriented x3, Normal Mood/Affect Skin: Normal Color, Warm/Dry Results/Procedures Lab Patient resulted labs reviewed. Imaging: Reviewed Imaging Report FIM Transfers Therapy Code Descriptions/Definitions Functional [place] Measure: 0=Not Assessed/NA 4=Minimal Assistance 1=Total Assistance 5=Supervision or Setup 2=Maximal Assistance 6=Modified [place] 3=Moderate Assistance 7=Complete IndependenceSCALE: Activities may be completed with or without assistive devices. 6-Fblxfptpsd-settedu completes the activity by him/herself with no assistance from a helper. 5-Set-up or Clean-up Assistance-helper sets up or cleans up; patient completes activity. [place] assists only prior to or following the activity. 4-Supervision or Touching Assistance-helper provides verbal cues and/or touching/steadying and/or contact guard assistance as patient completes activity. Assistance may be provided throughout the activity or intermittently. 3-Partial/Moderate Assistance-helper does LESS THAN HALF the effort. [place] lifts, holds or supports trunk or limbs, but provides less than half the effort. 2-Substantial/Maximal Assistance-helper does MORE THAN HALF the effort. [place] lifts or holds trunk or limbs and provides more than half the effort. 8-Tojqqzgpv-mwlals does ALL the effort. Patient does none of the effort to complete the activity. Or, the assistance of 2 or more helpers is required for the patient to complete the activity. If activity was not attempted, code reason: 7-Patient Refused. 9-Not Applicable-not attempted and the patient did not perform the activity before the current illness, exacerbation or injury. 10-Not Attempted due to Environmental Limitations-(lack of equipment, weather restraints, etc.). 88-Not Attempted due to Medical Conditions or Safety Concerns. Roll Left to Right (QC): 1 Sit to Lying (QC): 1 Sit to Stand (QC): 2 Chair/Muc-zm-Pxids Xfer(QC): 2 Car Transfer (QC): 88 Gait Training Does the Patient Walk?: Yes Walk 10 feet (QC): 2 Walk 50 ft with 2 Turns(QC): 88 Walk 150 ft (QC): 88 Walking 10ft/uneven surface-QC: 2 Gait Assistive Device: FWW Wheelchair Training Does the Pt Use a Wheelchair?: No Wheel 50 ft with 2 turns (QC): 9 Wheel 150 ft (QC): 9 Stair Training 1 Step (curb) (QC): 88 4 Steps (QC): 88 12 Steps (QC): 88 Balance Picking up an Object (QC): 88 ADL-Treatment Eating (QC): 5 (s/u for some tasks.) Oral Hygiene (QC): 6 (able to manipulate and complete with IND while in bed.) Shower/Bathe Self (QC): 2 (Pt requires CGA EOB during sponge bath during session, requires frequent rest breaks. Pt requires assist with LEs and assist in stance for bottom. ) Upper Body Dressing (QC): 3 (s/u gown, however, likely mod A with threading shirt (does not have materials here)) Lower Body Dressing (QC): 1 (TD at this time due to Ax2 for sit to stand and assist for threading.) On/Off Footwear (QC): 1 (TD at this time. Pt requires TD doff/ donning. Pt educated on use of dressing stick and sock aide (completes sock donning wiht aide with s/u and min A)) Toileting Hygiene (QC): 3 (Ax2 to stand, however, completes bottom care with CGA with RUE in stance.) Assessment/Plan Assessment and Plan Assess & Plan/Chief Complaint Assessment: Left femoral neck fracture Left humerus fracture Diabetes mellitus moderate control with hemoglobin A1c 8.6 Hyperlipidemia Hypertension Cognitive deficit slums score is 25/30 Sundowning and nighttime confusion on 02/04/2021 Acute hypokalemia added supplement on admission Postoperative anemia hemoglobin 11 Postop constipation now resolved Plan: Blood sugar control Pain control Bowel regimen Monitor confusion (1) Fracture of femoral neck, left JEFF WASHBURN DO Feb 04, 2021 08:35
[2021-02-04] MEDS: amLODIPine 5 MG (NORVASC) TAB PO SCH (09:40)
[2021-02-04] MEDS: meTOprolol TARTRATE 25 MG (LOPRESSOR) TABLET PO SCH ×2 (09:40→21:37)
[2021-02-04] MEDS: FAMOTIDINE 20 MG (PEPCID) TABLET PO SCH (09:40)
[2021-02-04] MEDS: LOSARTAN 100 MG (COZAAR) TABLET PO SCH (09:40)
[2021-02-04] MEDS: KCL 10 MEQ TAB (MICRO K) PO SCH ×2 (09:41→21:37)
[2021-02-04] MEDS: polyethylene glycoL POWDER 17 GM (MIRALAX) PACK PO SCH ×2 (09:42→21:30)
[2021-02-04] MEDS: DOCUSATE SODIUM 100 MG (COLACE) CAP PO SCH ×2 (09:42→21:37)
[2021-02-04] MEDS: SENNA W/DOCUSATE (SENOKOT S) TABLET PO SCH ×2 (09:42→21:30)
[2021-02-04] MEDS: inSUlin NPH (NovoLIN N) 1 UNIT/0.01 ML (CHARGE PER UNIT) SQ SCH ×2 (09:48→21:39)
--- NOTE | 2021-02-04 10:47 | Occupational Ther Daily Note ---
OT Current Status-Daily Note Subjective Pt. states that she does not have pain as long as she doesn't move. Reports that she has already had pain medication. Appearance Pt. in bed eating breakfast. Alert and oriented. Agrees to work with therapy. Mental Status/Objective Patient Orientation: Person, Place ADL-Treatment Therapy Code Descriptions/Definitions Functional [place] Measure: 0=Not Assessed/NA 4=Minimal Assistance 1=Total Assistance 5=Supervision or Setup 2=Maximal Assistance 6=Modified [place] 3=Moderate Assistance 7=Complete IndependenceSCALE: Activities may be completed with or without assistive devices. 1-Wwfmxxwhvh-okuacdw completes the activity by him/herself with no assistance from a helper. 5-Set-up or Clean-up Assistance-helper sets up or cleans up; patient completes activity. Left Hand assists only prior to or following the activity. 4-Supervision or Touching Assistance-helper provides verbal cues and/or touching/steadying and/or contact guard assistance as patient completes activity. Assistance may be provided throughout the activity or intermittently. 3-Partial/Moderate Assistance-helper does LESS THAN HALF the effort. Left Hand lifts, holds or supports trunk or limbs, but provides less than half the effort. 2-Substantial/Maximal Assistance-helper does MORE THAN HALF the effort. Left Hand lifts or holds trunk or limbs and provides more than half the effort. 6-Hnfwzwvql-seiijk does ALL the effort. Patient does none of the effort to complete the activity. Or, the assistance of 2 or more helpers is required for the patient to complete the activity. If activity was not attempted, code reason: 7-Patient Refused. 9-Not Applicable-not attempted and the patient did not perform the activity before the current illness, exacerbation or injury. 10-Not Attempted due to Environmental Limitations-(lack of equipment, weather restraints, etc.). 88-Not Attempted due to Medical Conditions or Safety Concerns. Eating (QC): 6 Shower/Bathe Self (QC): 2 (Max assist overall. Pt. able to wash chest and unde r arms. Able to wash right UE. LE covered with cast. OT washes back, veronica area, and bilateral feet.) Upper Body Dressing (QC): 3 (Mod assist. Pt. attempts to down mumu dress but has difficulty manuevering over head and finding correct sleeves. Pt. also has difficulty with sitting balance EOB while performing.) On/Off Footwear: 2 (Pt educated on sock aide but did not have time to practice.) Toileting Hygiene (QC): 1 (Assist in stance and full assist for veronica care after toileting.) Toilet Transfer (QC): 1 (Mod/max assist x 2 for sit-stand, and then mod assist and cues for pivot to toilet.) Other Treatment Pt. seen this date for co-treatment with PT due to need of skilled assistance x 2. Pt. presents with low endurance, core strength, and fatigue, as well as functional skills. OT addressed ADL skills while PT assisted with transfers, mobility and LE strength. Pt. transferred supine-sit with max x 2 to EOB. Agreed to complete sponge bath EOB but requires assistance for support and balance while seated from PT throughout treatment while OT educates on hip precautions and proper techniques of ADL equipment. Pt. states that she has had balance issues for some time, but can't specifically state why, other than she fx her right ankle 12 years ago and now has hardware. After ADLs pt. worked on sit-stands with platform walker, and taking steps. Mod/max x 2 for sit-stand needed, as well as cues for hand placement, and physical assist to place left UE onto platform. Cues for weight shift and advancement of left LE needed. Please see PT noted for distance ambulated. Max x 2 for sit-supine. All needs met back in bed at end of treatment. Education OT Patient Education: Correct positioning, Modified ADL techniques, Progress toward Goal/Update tx plan, Purpose of tx/functional activities, Reviewed precautions, Rehab process, Transfer techniques, Use of adapted equipment Teaching Recipient: Patient Teaching Methods: Demonstration, Discussion Response to Teaching: Verbalize Understanding, Return Demonstration, Reinforcement Needed OT Short Term Goals Short Term Goals Eatin Oral hygiene: 6 Toileting hygiene: 4 Shower/bathe self: 4 Upper body dressin Lower body dressin Putting on/taking off footwear: 5 OT Retirement Goals Retirement Goals Time Frame: Feb 17, 2021 Eating (QC): 6 Oral Hygiene (QC): 6 Toileting Hygiene (QC): 6 Shower/Bathe Self (QC): 6 Upper Body Dressing (QC): 6 Lower Body Dressing (QC): 6 On/Off Footwear (QC): 6 Additional Goals: 1-Demonstrate ADL Tasks, 2-Verbalize Understanding, 3- ImproveStrength/Tamiko 1=Demonstrate adherence to instructed precautions during ADL tasks. 2=Patient will verbalize/demonstrate understanding of assistive devices/modifica tions for ADL. 3=Patient will improve strength/tolerance for activity to enable patient to perform ADL's. OT Education/Plan Problem List/Assessment Assessment: Decreased Activ Tolerance, Decreased UE Strength, Dependent Transfers, Impaired Bed Mobility, Impaired Funct Balance, Impaired I ADL's, Impaired Self-Care Skills Discharge Recommendations Plan/Recommendations: Continue POC Therapy Discharge Recommendati: Post Acute OT Equpiment Recommendations-D/C: Hip Kit Treatment Plan/Plan of Care Treatment,Training & Education: Yes Patient would benefit from OT for education, treatment and training to promote independence in ADL's, mobility, safety and/or upper extremity function for ADL's. Plan of Care: ADL Retraining, Caregiver Training, Functional Mobility, Group Exercise/Act as Ind, Orthotic Fitting/Training, UE Funct Exercise/Act, W/C Management Training Treatment Duration: Feb 17, 2021 Frequency: At least 5 of 7 days/Wk (IRF) Estimated Hrs Per Day: 1.5 hours per day Agreement: Yes Rehab Potential: Good Time/GCodes Start Time: 07:55 Stop Time: 09:30 Total Time Billed (hr/min): 95 Billed Treatment Time 1, ADL x 60minutes, FA x 35minutes- Please see above note for designated roles. ERIKA ZELAYA OT Feb 04, 2021 10:47
--- NOTE | 2021-02-04 13:06 | Physical Therapy Daily Note ---
PT Daily Note-Current Subjective Pt in bed, agreeable. Motivated with encouragement. Unable to recall hip precautions without cues. Mental Status Patient Orientation: Person, Place, Time, Situation Attachments: Guerrero Catheter Transfers SCALE: Activities may be completed with or without assistive devices. 4-Odpgmumupi-ssqylmp completes the activity by him/herself with no assistance from a helper. 5-Set-up or Clean-up Assistance-helper sets up or cleans up; patient completes activity. [place] assists only prior to or following the activity. 4-Supervision or Touching Assistance-helper provides verbal cues and/or touching/steadying and/or contact guard assistance as patient completes activity. Assistance may be provided throughout the activity or intermittently. 3-Partial/Moderate Assistance-helper does LESS THAN HALF the effort. [place] lifts, holds or supports trunk or limbs, but provides less than half the effort. 2-Substantial/Maximal Assistance-helper does MORE THAN HALF the effort. [place] lifts or holds trunk or limbs and provides more than half the effort. 3-Fxltrpvyh-flqxxc does ALL the effort. Patient does none of the effort to complete the activity. Or, the assistance of 2 or more helpers is required for the patient to complete the activity. If activity was not attempted, code reason: 7-Patient Refused. 9-Not Applicable-not attempted and the patient did not perform the activity before the current illness, exacerbation or injury. 10-Not Attempted due to Environmental Limitations-(lack of equipment, weather restraints, etc.). 88-Not Attempted due to Medical Conditions or Safety Concerns. Sit to Lying (QC): 1 Lying to Sitting/Side of Bed(Q: 1 Sit to Stand (QC): 1 Chair/Okb-qt-Nisaf Xfer(QC): 1 Toilet Transfer (QC): 1 Weight Bearing Right Lower Extremity: Right Full Weight Bearing Left Lower Extremity: Left Weight Bearing/Tolerated Gait Training Does the Patient Walk?: Yes Distance: 10 Walk 10 feet (QC): 1 Gait Persons Needed: 2 Gait Assistive Device: Walker Platform Pt ambulated 10' x 2 with platform FWW with min A x 1 with max VCS for sequencing and assist to advance FWW + WCH following. Pt with great difficulty advancing (L) LE, frequently attempting to slide it. Able to clear (L) foot with max VCS x 4-5 reps then fatigued. VCS for posture, retropulsive at times. Wheelchair Training Does the Pt Use a Wheelchair?: No Treatments To EOB with A x 2. Once at EOB, OT addressing bathing and dressing tasks, PT assisting with sitting balance. Pt frequently falls to (R) and back, occasionally able to correct (I) at times, other times requiring max A x 1 to correct. Pt reports "I have this problem for years now". Functional sitting balance, core strengthening at EOB, gait training with FWW, transfer training. Returned to bed with all needs met. Assessment Current Status: Fair Progress Pt tolerated well. Fatigues very quickly with all functional tasks. Poor sitting balance at EOB. PT Short Term Goals Short Term Goals Time Frame: Feb 10, 2021 Roll Left & Right: 4 Sit to lyin Lying to sitting on side of be: 4 Sit to stand: 4 Chair/yqe-rf-ocqtq transfer: 4 Toilet transfer: 4 Car transfer: 3 Walk 10 feet: 4 Walk 50 feet with two turns: 4 PT Residential Goals Residential Goals PT Residential Goals Time Frame: Feb 17, 2021 Roll Left & Right (QC): 6 Sit to Lying (QC): 6 Lying-Sitting on Side/Bed(QC): 6 Sit to Stand (QC): 6 Chair/Atr-kh-Sdoon Xfer(QC): 6 Toilet Transfer (QC): 5 Car Transfer (QC): 5 Does the Patient Walk: Yes Walk 10 feet (QC): 5 Walk 50ft with 2 Turns (QC): 5 Walk 150 ft (QC): 5 Walking 10ft on Uneven Surface: 5 1 Step (curb) (QC): 5 4 Steps (QC): 5 12 Steps (QC): 88 Picking up an Object (QC): 88 Wheel 50 feet with 2 turns (QC: 9 Wheel 150 feet: 9 PT Plan Problem List Problem List: Activity Tolerance, Functional Strength, Safety, Balance, Gait, Transfer, Bed Mobility, ROM Treatment/Plan Treatment Plan: Continue Plan of Care Treatment Plan: Bed Mobility, Functional Activity Tamiko, Functional Strength, Group Therapy, Gait, Safety, Therapeutic Exercise, Transfers Treatment Duration: Feb 17, 2021 Frequency: 11 times per week Estimated Hrs Per Day: 1.5 hours per day Patient and/or Family Agrees t: Yes Safety Risks/Education Patient Education: Gait Training, Reviewed Precautions, Correct Positioning Teaching Recipient: Patient Teaching Methods: Discussion Response to Teaching: Reinforcement Needed Time/GCodes Time In: 0755 Time Out: 929 Total Billed Treatment Time: 95 Total Billed Treatment 1, FA x 70', Ex x 25' Pt. seen this date for co-treatment with PT due to need of skilled assistance x 2. Pt. presents with low endurance, core strength, and fatigue, as well as functional skills. OT addressed ADL skills while PT assisted with transfers, mobility and LE strength. DOMINICK BLACK DPT Feb 04, 2021 13:06
[2021-02-04] MEDS: ACETAMINOPHEN 325 MG TABLET PO PRN (16:52)
[2021-02-04 20:00] VITALS: BP 135/61
[2021-02-04] MEDS: SIMvastatin 10 MG (ZOCOR) TAB PO SCH (21:37)
[2021-02-05] MEDS: inSUlin ASPART (NovoLOG) 1 UNIT/0.01 ML (CHARGE PER UNIT) SC SCH ×4 (05:47→21:21)
[2021-02-05] MEDS: DOXYCYCLINE 100 MG (VIBRAMYCIN) TABLET PO SCH ×2 (06:47→16:38)
[2021-02-05] MEDS: VENlafaxine XR 75 MG (EFFEXOR XR) CAP PO SCH (06:47)
[2021-02-05] MEDS: BETHANECHOL 25 MG (URECHOLINE) TAB PO SCH ×4 (06:48→21:18)
[2021-02-05] MEDS: glipiZIDE XL 5 MG (GLUCOTROL XL) TAB PO SCH (06:48)
--- NOTE | 2021-02-05 06:59 | PM&R Progress Note ---
Subjective HPI/CC On Admission Date Seen by Provider: Feb 05, 2021 Time Seen by Provider: 10:00 Subjective/Events-last exam 02/05/2021: Patient did not sleep well Did not call her family in the medical night like last night Left ankle skin graft has a bit of blisters so will monitor that closely Blood pressure was very elevated at 180/74 We will discontinue the catheter tomorrow Urinary medication given since she has retention after Guerrero catheters in the past Not moving too good overall 02/04/2021: This visit is via video chat due to Covid related restriction for this provider Patient in a really good mood today Bowels moved today Oxycodone doing pretty well for the left elbow pain Confused at night and called all of her family members at 0400 hrs. and her came to check on her at 4:00 this morning She is aware that she was confused and feels embarrassed about it Slums score is 25/30 so she definitely had some confusion with delirium and cognitive decline status We will monitor closely Review of Systems General: Fatigue, Malaise Neurological: Weakness Focused Exam Lactate Level 02/03/21 10:04: Lactic Acid Level 2.09*H 02/03/21 12:30: Lactic Acid Level 1.26 Objective Exam Vital Signs Vital Signs Date Time Temp Pulse Resp B/P (MAP) Pulse Ox O2 Delivery O2 Flow Rate FiO2 02/05/21 21:22 95 02/05/21 20:42 36.0 83 26 125/60 (81) Room Air Capillary Refill : General Appearance: No Apparent Distress, WD/WN, Chronically ill, Obese HEENT: PERRL/EOMI, Normal ENT Inspection, Pharynx Normal, Moist Mucous Membranes; No Scleral Icterus (L), No Scleral Icterus (R) Neck: Normal Inspection, Supple Respiratory: Chest Non Tender, Lungs Clear, Normal Breath Sounds, No Accessory Muscle Use, No Respiratory Distress Cardiovascular: Regular Rate, Rhythm, No Edema, No Gallop, No JVD, No Murmur Gastrointestinal: Normal Bowel Sounds, Non Tender, Soft Extremity: No Calf Tenderness, No Pedal Edema Neurologic/Psychiatric: Alert, Oriented x3, Normal Mood/Affect, set off blocker II-XII Norm as Tested, Abnormal Gait, Depressed Affect, Motor Weakness (Left arm and left leg) Skin: Normal Color, Warm/Dry Results/Procedures Lab Patient resulted labs reviewed. Imaging: Reviewed Imaging Report FIM Transfers Therapy Code Descriptions/Definitions Functional [place] Measure: 0=Not Assessed/NA 4=Minimal Assistance 1=Total Assistance 5=Supervision or Setup 2=Maximal Assistance 6=Modified [place] 3=Moderate Assistance 7=Complete IndependenceSCALE: Activities may be completed with or without assistive devices. 1-Refiydajkl-gfdlhop completes the activity by him/herself with no assistance from a helper. 5-Set-up or Clean-up Assistance-helper sets up or cleans up; patient completes activity. [place] assists only prior to or following the activity. 4-Supervision or Touching Assistance-helper provides verbal cues and/or touching/steadying and/or contact guard assistance as patient completes activity. Assistance may be provided throughout the activity or intermittently. 3-Partial/Moderate Assistance-helper does LESS THAN HALF the effort. [place] li fts, holds or supports trunk or limbs, but provides less than half the effort. 2-Substantial/Maximal Assistance-helper does MORE THAN HALF the effort. [place] lifts or holds trunk or limbs and provides more than half the effort. 8-Xcchsodda-dhcvez does ALL the effort. Patient does none of the effort to complete the activity. Or, the assistance of 2 or more helpers is required for the patient to complete the activity. If activity was not attempted, code reason: 7-Patient Refused. 9-Not Applicable-not attempted and the patient did not perform the activity before the current illness, exacerbation or injury. 10-Not Attempted due to Environmental Limitations-(lack of equipment, weather restraints, etc.). 88-Not Attempted due to Medical Conditions or Safety Concerns. Roll Left to Right (QC): 1 Sit to Lying (QC): 1 Sit to Stand (QC): 1 Chair/Bbl-xk-Vbdkp Xfer(QC): 1 Car Transfer (QC): 88 Gait Training Does the Patient Walk?: Yes Distance: 10 Walk 10 feet (QC): 1 Walk 50 ft with 2 Turns(QC): 88 Walk 150 ft (QC): 88 Walking 10ft/uneven surface-QC: 2 Gait Persons Needed: 2 Gait Assistive Device: Walker Platform Wheelchair Training Does the Pt Use a Wheelchair?: No Wheel 50 ft with 2 turns (QC): 9 Wheel 150 ft (QC): 9 Stair Training 1 Step (curb) (QC): 88 4 Steps (QC): 88 12 Steps (QC): 88 Balance Picking up an Object (QC): 88 ADL-Treatment Eating (QC): 6 Oral Hygiene (QC): 6 (able to manipulate and complete with IND while in bed.) Shower/Bathe Self (QC): 2 (Max assist overall. Pt. able to wash chest and under arms. Able to wash right UE. LE covered with cast. OT washes back, veronica area, and bilateral feet.) Upper Body Dressing (QC): 3 (Mod assist. Pt. attempts to down mumu dress but has difficulty manuevering over head and finding correct sleeves. Pt. also has difficulty with sitting balance EOB while performing.) Lower Body Dressing (QC): 1 (TD at this time due to Ax2 for sit to stand and assist for threading.) On/Off Footwear (QC): 2 (Pt educated on sock aide but did not have time to practice.) Toileting Hygiene (QC): 1 (Assist in stance and full assist for veronica care after toileting.) Toilet Transfer (QC): 1 (Mod/max assist x 2 for sit-stand, and then mod assist and cues for pivot to toilet.) Assessment/Plan Assessment and Plan Assess & Plan/Chief Complaint Assessment: Left femoral neck fracture Left humerus fracture Diabetes mellitus moderate control with hemoglobin A1c 8.6 Hyperlipidemia Hypertension Cognitive deficit slums score is 25/30 Sundowning and nighttime confusion on 02/04/2021 Acute hypokalemia added supplement on admission Postoperative anemia hemoglobin 11 Postop constipation now resolved 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
[2021-02-05 07:25] VITALS: BP 181/74
[2021-02-05] MEDS: SENNA W/DOCUSATE (SENOKOT S) TABLET PO SCH ×2 (09:15→21:23)
[2021-02-05] MEDS: DOCUSATE SODIUM 100 MG (COLACE) CAP PO SCH ×2 (09:15→21:23)
[2021-02-05] MEDS: FAMOTIDINE 20 MG (PEPCID) TABLET PO SCH (09:15)
[2021-02-05] MEDS: LOSARTAN 100 MG (COZAAR) TABLET PO SCH (09:17)
[2021-02-05] MEDS: meTOprolol TARTRATE 25 MG (LOPRESSOR) TABLET PO SCH ×2 (09:17→21:18)
[2021-02-05] MEDS: KCL 10 MEQ TAB (MICRO K) PO SCH ×2 (09:18→21:18)
[2021-02-05] MEDS: amLODIPine 5 MG (NORVASC) TAB PO SCH (09:18)
[2021-02-05] MEDS: polyethylene glycoL POWDER 17 GM (MIRALAX) PACK PO SCH ×2 (09:18→21:23)
[2021-02-05] MEDS: inSUlin NPH (NovoLIN N) 1 UNIT/0.01 ML (CHARGE PER UNIT) SQ SCH ×2 (09:19→21:21)
[2021-02-05] MEDS: TAMSULOSIN 0.4 MG (FLOMAX) CAP PO SCH ×2 (10:28→21:18)
[2021-02-05 15:00] VITALS: BP 128/59
[2021-02-05 20:22] VITALS: BP 125/60
[2021-02-05 20:42] VITALS: BP 125/60
[2021-02-05] MEDS: SIMvastatin 10 MG (ZOCOR) TAB PO SCH (21:18)
--- NOTE | 2021-02-06 05:59 | PM&R Progress Note ---
Subjective HPI/CC On Admission Date Seen by Provider: Feb 06, 2021 Time Seen by Provider: 09:00 Subjective/Events-last exam 02/06/2021: Pt doing pretty well Participating in therapy Will DC the catheter and see if she can void on her own Urecholine and Flomax ordered Hgb 9.6 Bowels moved yesterday Sugars are okay 02/05/2021: Patient did not sleep well Did not call her family in the medical night like last night Left ankle skin graft has a bit of blisters so will monitor that closely Blood pressure was very elevated at 180/74 We will discontinue the catheter tomorrow Urinary medication given since she has retention after Guerrero catheters in the past Not moving too good overall 02/04/2021: This visit is via video chat due to Covid related restriction for this provider Patient in a really good mood today Bowels moved today Oxycodone doing pretty well for the left elbow pain Confused at night and called all of her family members at 0400 hrs. and her came to check on her at 4:00 this morning She is aware that she was confused and feels embarrassed about it Sl[place] score is 25/30 so she definitely had some confusion with delirium and cognitive decline status We will monitor closely Review of Systems General: Fatigue, Malaise Genitourinary: Retention Musculoskeletal: arm pain, leg pain Focused Exam Lactate Level Objective Exam Vital Signs Vital Signs Date Time Temp Pulse Resp B/P (MAP) Pulse Ox O2 Delivery O2 Flow Rate FiO2 02/06/21 20:00 36.2 80 16 125/67 (86) 92 02/06/21 07:46 Room Air Capillary Refill : General Appearance: No Apparent Distress, WD/WN, Chronically ill, Obese HEENT: PERRL/EOMI, Normal ENT Inspection, Pharynx Normal, Moist Mucous Membranes; No Scleral Icterus (L), No Scleral Icterus (R) Neck: Normal Inspection, Supple Respiratory: Chest Non Tender, Lungs Clear, Normal Breath Sounds, No Accessory Muscle Use, No Respiratory Distress Cardiovascular: Regular Rate, Rhythm, No Edema, No Gallop, No JVD, No Murmur Gastrointestinal: Normal Bowel Sounds, Non Tender, Soft Extremity: No Calf Tenderness, No Pedal Edema Neurologic/Psychiatric: Alert, Oriented x3, Normal Mood/Affect, paint stockman II-XII Norm as Tested, Abnormal Gait, Depressed Affect, Motor Weakness (Left arm and left leg) Skin: Normal Color, Warm/Dry Results/Procedures Lab Laboratory Tests 02/06/21 05:37 Patient resulted labs reviewed. Imaging: Reviewed Imaging Report FIM Transfers Therapy Code Descriptions/Definitions Functional [place] Measure: 0=Not Assessed/NA 4=Minimal Assistance 1=Total Assistance 5=Supervision or Setup 2=Maximal Assistance 6=Modified [place] 3=Moderate Assistance 7=Complete IndependenceSCALE: Activities may be completed with or without assistive devices. 8-Frhomwckfr-xuxrilq completes the activity by him/herself with no assistance from a helper. 5-Set-up or Clean-up Assistance-helper sets up or cleans up; patient completes activity. [place] assists only prior to or following the activity. 4-Supervision or Touching Assistance-helper provides verbal cues and/or touching/steadying and/or contact guard assistance as patient completes activity. Assistance may be provided throughout the activity or intermittently. 3-Partial/Moderate Assistance-helper does LESS THAN HALF the effort. [place] lifts, holds or supports trunk or limbs, but provides less than half the effort. 2-Substantial/Maximal Assistance-helper does MORE THAN HALF the effort. [place] lifts or holds trunk or limbs and provides more than half the effort. 3-Ryggnuvzy-rrirah does ALL the effort. Patient does none of the effort to complete the activity. Or, the assistance of 2 or more helpers is required for the patient to complete the activity. If activity was not attempted, code reason: 7-Patient Refused. 9-Not Applicable-not attempted and the patient did not perform the activity before the current illness, exacerbation or injury. 10-Not Attempted due to Environmental Limitations-(lack of equipment, weather restraints, etc.). 88-Not Attempted due to Medical Conditions or Safety Concerns. Roll Left to Right (QC): 1 Sit to Lying (QC): 1 Sit to Stand (QC): 1 Chair/Owa-sa-Fxckt Xfer(QC): 1 Car Transfer (QC): 88 Gait Training Does the Patient Walk?: Yes Distance: 10 Walk 10 feet (QC): 1 Walk 50 ft with 2 Turns(QC): 88 Walk 150 ft (QC): 88 Walking 10ft/uneven surface-QC: 2 Gait Persons Needed: 2 Gait Assistive Device: Walker Platform Wheelchair Training Does the Pt Use a Wheelchair?: No Wheel 50 ft with 2 turns (QC): 9 Wheel 150 ft (QC): 9 Stair Training 1 Step (curb) (QC): 88 4 Steps (QC): 88 12 Steps (QC): 88 Balance Picking up an Object (QC): 88 ADL-Treatment Eating (QC): 6 Oral Hygiene (QC): 6 (able to manipulate and complete with IND while in bed.) Shower/Bathe Self (QC): 2 (Max assist overall. Pt. able to wash chest and under arms. Able to wash right UE. LE covered with cast. OT washes back, veronica area, and bilateral feet.) Upper Body Dressing (QC): 3 (Mod assist. Pt. attempts to down mumu dress but has difficulty manuevering over head and finding correct sleeves. Pt. also has difficulty with sitting balance EOB while performing.) Lower Body Dressing (QC): 1 (TD at this time due to Ax2 for sit to stand and assist for threading.) On/Off Footwear (QC): 2 (Pt educated on sock aide but did not have time to practice.) Toileting Hygiene (QC): 1 (Assist in stance and full assist for veronica care after toileting.) Toilet Transfer (QC): 1 (Mod/max assist x 2 for sit-stand, and then mod assist and cues for pivot to toilet.) Assessment/Plan Assessment and Plan Assess & Plan/Chief Complaint Assessment: Left femoral neck fracture Left humerus fracture Diabetes mellitus moderate control with hemoglobin A1c 8.6 Hyperlipidemia Hypertension Cognitive deficit [place] score is 25/30 Sundowning and nighttime confusion on 02/04/2021 Acute hypokalemia added supplement on admission Postoperative anemia hemoglobin 11 Postop constipation now resolved 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
[2021-02-06] MEDS: inSUlin ASPART (NovoLOG) 1 UNIT/0.01 ML (CHARGE PER UNIT) SC SCH ×4 (06:00→21:47)
[2021-02-06] MEDS: BETHANECHOL 25 MG (URECHOLINE) TAB PO SCH ×4 (06:28→21:48)
[2021-02-06] MEDS: DOXYCYCLINE 100 MG (VIBRAMYCIN) TABLET PO SCH ×2 (06:28→16:19)
[2021-02-06] MEDS: glipiZIDE XL 5 MG (GLUCOTROL XL) TAB PO SCH (06:29)
[2021-02-06] MEDS: VENlafaxine XR 75 MG (EFFEXOR XR) CAP PO SCH (06:29)
[2021-02-06 06:38] LABS: BASOPHILS # (AUTO) 0.1 10^3/uL (0.0-0.1); BASOPHILS % (AUTO) 1 % (0-10); EOSINOPHILS # (AUTO) 0.4 10^3/uL (0.0-0.3); EOSINOPHILS % (AUTO) 5 % (0-10); HEMATOCRIT 29 % (35-52); HEMOGLOBIN 9.6 g/dL (11.5-16.0); LYMPHOCYTES % (AUTO) 34 % (12-44); MEAN CORPUSCULAR HEMOGLOBIN 29 pg (25-34); MEAN CORPUSCULAR HGB CONC 33 g/dL (32-36); MEAN CORPUSCULAR VOLUME 88 fL (80-99); MEAN PLATELET VOLUME 11.7 fL (9.0-12.2); MONOCYTES # (AUTO) 0.7 10^3/uL (0.0-1.0); MONOCYTES % (AUTO) 8 % (0-12); NEUTROPHILS # (AUTO) 4.6 10^3/uL (1.8-7.8); NEUTROPHILS % (AUTO) 52 % (42-75); PLATELET COUNT 211 10^3/uL (130-400); WHITE BLOOD COUNT 8.7 10^3/uL (4.3-11.0)
[2021-02-06 06:59] LABS: ALANINE AMINOTRANSFERASE 27 U/L (0-55); ALBUMIN 2.9 GM/DL (3.2-4.5); ALKALINE PHOSPHATASE 58 U/L (40-136); BILIRUBIN,TOTAL 0.6 MG/DL (0.1-1.0); BUN/CREATININE RATIO 17; CALCIUM 8.9 MG/DL (8.5-10.1); CARBON DIOXIDE 26 MMOL/L (21-32); CHLORIDE 106 MMOL/L (98-107); CREATININE SERUM 0.69 MG/DL (0.60-1.30); GFR ESTIMATED > 60; GLUCOSE 138 MG/DL (70-105); POTASSIUM 3.7 MMOL/L (3.6-5.0); SODIUM 140 MMOL/L (135-145)
[2021-02-06 07:46] VITALS: BP 145/65
[2021-02-06] MEDS: meTOprolol TARTRATE 25 MG (LOPRESSOR) TABLET PO SCH ×2 (08:11→21:48)
[2021-02-06] MEDS: amLODIPine 5 MG (NORVASC) TAB PO SCH (08:11)
[2021-02-06] MEDS: FAMOTIDINE 20 MG (PEPCID) TABLET PO SCH (08:11)
[2021-02-06] MEDS: LOSARTAN 100 MG (COZAAR) TABLET PO SCH (08:11)
[2021-02-06] MEDS: KCL 10 MEQ TAB (MICRO K) PO SCH ×2 (08:11→21:48)
[2021-02-06] MEDS: TAMSULOSIN 0.4 MG (FLOMAX) CAP PO SCH ×2 (08:11→21:47)
[2021-02-06] MEDS: SENNA W/DOCUSATE (SENOKOT S) TABLET PO SCH ×2 (08:14→21:47)
[2021-02-06] MEDS: DOCUSATE SODIUM 100 MG (COLACE) CAP PO SCH ×2 (08:14→21:48)
[2021-02-06] MEDS: polyethylene glycoL POWDER 17 GM (MIRALAX) PACK PO SCH ×2 (08:14→21:48)
[2021-02-06] MEDS: inSUlin NPH (NovoLIN N) 1 UNIT/0.01 ML (CHARGE PER UNIT) SQ SCH ×2 (08:30→21:47)
--- NOTE | 2021-02-06 09:32 | Physical Therapy Daily Note ---
PT Daily Note-Current Subjective Pt in bed, agreeable to treatment. Pt states "very little" when asked if she has pain. Pain rated 2/10 in (L) hip before and after treatment. Mental Status Patient Orientation: Person, Place, Situation Transfers SCALE: Activities may be completed with or without assistive devices. 8-Ftnzbyoexc-qafcwkx completes the activity by him/herself with no assistance from a helper. 5-Set-up or Clean-up Assistance-helper sets up or cleans up; patient completes activity. [place] assists only prior to or following the activity. 4-Supervision or Touching Assistance-helper provides verbal cues and/or touching/steadying and/or contact guard assistance as patient completes activity. Assistance may be provided throughout the activity or intermittently. 3-Partial/Moderate Assistance-helper does LESS THAN HALF the effort. [place] lifts, holds or supports trunk or limbs, but provides less than half the effort. 2-Substantial/Maximal Assistance-helper does MORE THAN HALF the effort. [place] lifts or holds trunk or limbs and provides more than half the effort. 6-Kteuxwzxf-zhkrdn does ALL the effort. Patient does none of the effort to complete the activity. Or, the assistance of 2 or more helpers is required for the patient to complete the activity. If activity was not attempted, code reason: 7-Patient Refused. 9-Not Applicable-not attempted and the patient did not perform the activity b efore the current illness, exacerbation or injury. 10-Not Attempted due to Environmental Limitations-(lack of equipment, weather restraints, etc.). 88-Not Attempted due to Medical Conditions or Safety Concerns. Mod A for bed mobility and sit to stand transfers Weight Bearing Right Lower Extremity: Right Full Weight Bearing Left Lower Extremity: Left Weight Bearing/Tolerated Gait Training Gait Assistive Device: FWW Pt amb with platform walker and CGA, close f/u of w/c 1 x 50' and 1 x 30'. Pt has very slow evelyn and short but equal step length. Balance Special Test Comments Practiced standing in place without support x 1min. Pt posture wanes with standing, able to correct with a forward flexed trunk with vc's as needed. Exercises Supine Ex: LE Protocol Supine Reps: 20 Treatments Pt performed all well leg ther ex AROM and PROM-AAROM (L) LE in shortened range for hip abd and SLR. Assessment Current Status: Good Progress Good tolerance to treatment. No c/o increased pain. Pt fatigues easily but able to increase distance walked today. Pt functional mobility is very slow at this time. Dependent with all transfers. PT Short Term Goals Short Term Goals Time Frame: Feb 10, 2021 Roll Left & Right: 4 Sit to lyin Lying to sitting on side of be: 4 Sit to stand: 4 Chair/jlx-pi-uofsg transfer: 4 Toilet transfer: 4 Car transfer: 3 Walk 10 feet: 4 Walk 50 feet with two turns: 4 PT Accounts Receivable Clerk Goals Accounts Receivable Clerk Goals PT Group Home Goals Time Frame: Feb 17, 2021 Roll Left & Right (QC): 6 Sit to Lying (QC): 6 Lying-Sitting on Side/Bed(QC): 6 Sit to Stand (QC): 6 Chair/Fkh-ku-Nwukb Xfer(QC): 6 Toilet Transfer (QC): 5 Car Transfer (QC): 5 Does the Patient Walk: Yes Walk 10 feet (QC): 5 Walk 50ft with 2 Turns (QC): 5 Walk 150 ft (QC): 5 Walking 10ft on Uneven Surface: 5 1 Step (curb) (QC): 5 4 Steps (QC): 5 12 Steps (QC): 88 Picking up an Object (QC): 88 Wheel 50 feet with 2 turns (QC: 9 Wheel 150 feet: 9 PT Plan Treatment/Plan Treatment Plan: Continue Plan of Care Treatment Plan: Bed Mobility, Functional Activity Tamiko, Functional Strength, Group Therapy, Gait, Safety, Therapeutic Exercise, Transfers Treatment Duration: Feb 17, 2021 Frequency: 11 times per week Estimated Hrs Per Day: 1.5 hours per day Patient and/or Family Agrees t: Yes Time/GCodes Time In: 800 Time Out: 900 Total Billed Treatment Time: 60 Total Billed Treatment 1, ther ex 30', gait 30' RENE GHOSH CPTA Feb 06, 2021 09:32
--- NOTE | 2021-02-06 10:20 | Speech Therapy Daily Note ---
Speech Daily Progress Note Subjective Date Seen by Provider: Feb 06, 2021 Time Seen by Provider: 00:30 Patient was resting in her recliner following her other therapies. She states she's not sleeping well but pain is less. Objective Patient completed a series of memory tasks at 80% with 10% cues. Assessment Assessment Current Status: Good Progress Treatment Plan Continue Plan of Care Speech Short Term Goals Short Term Goals Short Term Goals 1) Patient will complete safety awareness tasks at 90% or greater with minimal cues. 2) Patient will complete new information recall tasks at 90% or greater with minimal cues. Speech Care Home Goals Care Home Goals Patient will demonstrate the ability to communicate and complete daily tasks with minimal assist. Speech-Plan Patient/Family Goals Patient/Family Goals: Patient plans on returning to her home upon discharge. She lives with her who will assist her and she will receive home health services as well. Treatment Plan Speech Therapy Treatment Plan: Continue Plan of Care Treatment Duration: Feb 17, 2021 Frequency: 4 times per week Estimated Hrs Per Day: .5 hour per day Rehab Potential: Good Barriers to Learning: Patient's mild cognitive deficits Pt/Family Agrees to Plan: Yes Safety Risks/Education Teaching Recipient: Patient Teaching Methods: Demonstration, Discussion Response to Teaching: Verbalize Understanding, Return Demonstration Education Topics Provided: Continued safety within her room, communication of wants/needs Time Speech Therapy Time In: 10:30 Speech Therapy Time Out: 11:00 Total Billed Time: 30 Billed Treatment Time 1MAYELA BETHANIA ST Feb 06, 2021 10:20
--- NOTE | 2021-02-06 10:33 | CONSULTATION REPORT ---
DATE OF SERVICE: 02/06/2021 ATTENDING PHYSICIAN: Nette Lawson DO SUMMARY: A 80-year-old white lady during rehabilitation from orthopedic surgery. She has been having apparently some problem with retention. Her catheter was discontinued this morning. She is on Flomax 0.4 mg daily and Urecholine 25 mg q.i.d., which she tolerates well. IMPRESSION: Urinary retention. PLAN: See what she does with this trial of voiding. Do bladder scan postvoid residual if it is over 300 straight cath. Job ID: [id number] DocumentID: [id number] Dictated Date: 02/06/2021 09:16:26 Studio Receptionist Date: 02/06/2021 10:32:48 Dictated By: MARQUES FELDER MD
--- NOTE | 2021-02-06 13:21 | Occupational Ther Daily Note ---
OT Current Status-Daily Note Subjective No pain reported. Appearance Pt. up in chair after working with PT in gym. Agrees to work with OT. ADL-Treatment Therapy Code Descriptions/Definitions Functional [place] Measure: 0=Not Assessed/NA 4=Minimal Assistance 1=Total Assistance 5=Supervision or Setup 2=Maximal Assistance 6=Modified [place] 3=Moderate Assistance 7=Complete IndependenceSCALE: Activities may be completed with or without assistive devices. 7-Ltddjxxasf-vtwomtd completes the activity by him/herself with no assistance from a helper. 5-Set-up or Clean-up Assistance-helper sets up or cleans up; patient completes activity. [place] assists only prior to or following the activity. 4-Supervision or Touching Assistance-helper provides verbal cues and/or touching/steadying and/or contact guard assistance as patient completes act ivity. Assistance may be provided throughout the activity or intermittently. 3-Partial/Moderate Assistance-helper does LESS THAN HALF the effort. [place] lifts, holds or supports trunk or limbs, but provides less than half the effort. 2-Substantial/Maximal Assistance-helper does MORE THAN HALF the effort. [place] lifts or holds trunk or limbs and provides more than half the effort. 0-Khlrzsndk-fbycwd does ALL the effort. Patient does none of the effort to complete the activity. Or, the assistance of 2 or more helpers is required for the patient to complete the activity. If activity was not attempted, code reason: 7-Patient Refused. 9-Not Applicable-not attempted and the patient did not perform the activity before the current illness, exacerbation or injury. 10-Not Attempted due to Environmental Limitations-(lack of equipment, weather restraints, etc.). 88-Not Attempted due to Medical Conditions or Safety Concerns. Oral Hygiene (QC): 4 (SBA seated in wheelchair at sink to brush teeth.) On/Off Footwear: 3 (Min assist with use of sock aide and dressing stick to doff/don slipper socks.) Toileting Hygiene (QC): 3 (Mod assist overall to toilet self after BM.) Toilet Transfer (QC): 3 (Mod assist sit-stand and pivot with use of grab bar to transfer to toilet.) Other Treatment Pt. up in chair. Completed 10 minutes at min resistance on arm bike to increase overall endurance. Pt. tolerated at slow pace. Stood with cues for correct sequence at parallel bar, with max assist to stand from wheelchair. Stood approximately 2 minutes at bar, and then requested to use bathroom. Transferred back to wheelchair and taken to toilet. After toileting, pt. practiced wheelchair propulsion with min assist needed, and use of right UE only. Went to room and transferred to chair in room with Mod assist. All needs met. Education OT Patient Education: Correct positioning, Exercise program, Modified ADL techniques, Progress toward Goal/Update tx plan, Purpose of tx/functional activities, Reviewed precautions, Rehab process, Transfer techniques, W/C management Teaching Recipient: Patient Teaching Methods: Demonstration, Discussion Response to Teaching: Verbalize Understanding, Return Demonstration OT Short Term Goals Short Term Goals Eatin Oral hygiene: 6 Toileting hygiene: 4 Shower/bathe self: 4 Upper body dressin Lower body dressin Putting on/taking off footwear: 5 OT Resin Mixer Goals Resin Mixer Goals Time Frame: Feb 17, 2021 Eating (QC): 6 Oral Hygiene (QC): 6 Toileting Hygiene (QC): 6 Shower/Bathe Self (QC): 6 Upper Body Dressing (QC): 6 Lower Body Dressing (QC): 6 On/Off Footwear (QC): 6 Additional Goals: 1-Demonstrate ADL Tasks, 2-Verbalize Understanding, 3-ImproveStrength/Tamiko 1=Demonstrate adherence to instructed precautions during ADL tasks. 2=Patient will verbalize/demonstrate understanding of assistive devices/modifications for ADL. 3=Patient will improve strength/tolerance for activity to enable patient to perform ADL's. OT Education/Plan Problem List/Assessment Assessment: Decreased Activ Tolerance, Dependent Transfers, Impaired Funct Balance, Impaired I ADL's, Impaired Self-Care Skills Discharge Recommendations Plan/Recommendations: Continue POC Therapy Discharge Recommendati: Post Acute OT Treatment Plan/Plan of Care Treatment,Training & Education: Yes Patient would benefit from OT for education, treatment and training to promote independence in ADL's, mobility, safety and/or upper extremity function for ADL's. Plan of Care: ADL Retraining, Caregiver Training, Functional Mobility, Group Exercise/Act as Ind, Orthotic Fitting/Training, UE Funct Exercise/Act, W/C Management Training Treatment Duration: Feb 17, 2021 Frequency: At least 5 of 7 days/Wk (IRF) Estimated Hrs Per Day: 1.5 hours per day Agreement: Yes Rehab Potential: Good Time/GCodes Start Time: 09:00 Stop Time: 10:00 Total Time Billed (hr/min): 60 Billed Treatment Time 1, ADL x 30minutes, Ex x 15minutes, FA x 15minutes ERIKA ZELAYA OT Feb 06, 2021 13:21
--- NOTE | 2021-02-06 14:40 | Therapy Group Daily Note ---
Therapy Daily Group Note Patient Education Topic Fall Prevention, Exercises Exercises LE Seated Exercise, UE Exercise Session Ratio (pt:therapist): 4:1 Goal of Session: UE/LE Strengthing, Other (list) (fall prevention) Goal Met for this Session: Yes Pt Benefit of Group: Contributions to Others, F/U Use of Strategies @Home, Increased Functional Safety, Increased Functional Strength, Improved Cognition, Recognition of Peers, Socialization Other/Notes Pt was transported via w/c to [facility] for OT/PT group. Group consisted of introductions (name, place living, rolling dice for random question), socialization, pt led B UE/LE seated exercises and fall prevention. Pt introduced self appropriately and actively listen to peers introduce themselves. Pt able to lead one exercise using exercise card then was able to complete other exercises lead by peers. Pt then acknowledged understanding of fall prevention by nodding head affirmatively. After group, pt lying in bed with call light/phone in reach. All needs met in room. Start Time: 13:00 Stop Time: 14:00 Total Billed Treatment Time: 60 Total Billed Treatment 1-KALIE MOSS Feb 06, 2021 14:40
[2021-02-06 20:00] VITALS: BP 125/67
[2021-02-06] MEDS: SIMvastatin 10 MG (ZOCOR) TAB PO SCH (21:48)
--- NOTE | 2021-02-07 05:24 | PM&R Progress Note ---
Subjective HPI/CC On Admission Date Seen by Provider: Feb 07, 2021 Time Seen by Provider: 09:00 Subjective/Events-last exam 02/07/2021: Pt doing pretty well No pain reported Voiding well Incontinent Her bottom is red but will monitor that Bowels moved yesterday 02/06/2021: Pt doing pretty well Participating in therapy Will DC the catheter and see if she can void on her own Urecholine and Flomax ordered Hgb 9.6 Bowels moved yesterday Sugars are okay 02/05/2021: Patient did not sleep well Did not call her family in the medical night like last night Left ankle skin graft has a bit of blisters so will monitor that closely Blood pressure was very elevated at 180/74 We will discontinue the catheter tomorrow Urinary medication given since she has retention after Guerrero catheters in the past Not moving too good overall 02/04/2021: This visit is via video chat due to Covid related restriction for this provider Patient in a really good mood today Bowels moved today Oxycodone doing pretty well for the left elbow pain Confused at night and called all of her family members at 0400 hrs. and her came to check on her at 4:00 this morning She is aware that she was confused and feels embarrassed about it Slums score is 25/30 so she definitely had some confusion with delirium and cogn itive decline status We will monitor closely Review of Systems General: Fatigue Musculoskeletal: arm pain, leg pain Objective Exam Vital Signs Vital Signs Date Time Temp Pulse Resp B/P (MAP) Pulse Ox O2 Delivery O2 Flow Rate FiO2 02/07/21 20:00 36.8 77 26 118/63 (81) 97 Room Air 02/07/21 06:41 0.00 Capillary Refill : General Appearance: No Apparent Distress, WD/WN, Chronically ill, Obese HEENT: PERRL/EOMI, Normal ENT Inspection, Pharynx Normal, Moist Mucous Mem branes; No Scleral Icterus (L), No Scleral Icterus (R) Neck: Normal Inspection, Supple Respiratory: Chest Non Tender, Lungs Clear, Normal Breath Sounds, No Accessory Muscle Use, No Respiratory Distress Cardiovascular: Regular Rate, Rhythm, No Edema, No Gallop, No JVD, No Murmur Gastrointestinal: Normal Bowel Sounds, Non Tender, Soft Extremity: No Calf Tenderness, No Pedal Edema Neurologic/Psychiatric: Alert, Oriented x3, Normal Mood/Affect, commissioning editor II-XII Norm as Tested, Abnormal Gait, Depressed Affect, Motor Weakness (Left arm and left leg) Skin: Normal Color, Warm/Dry Results/Procedures Lab Patient resulted labs reviewed. Imaging: Reviewed Imaging Report FIM Transfers Therapy Code Descriptions/Definitions Functional [place] Measure: 0=Not Assessed/NA 4=Minimal Assistance 1=Total Assistance 5=Supervision or Setup 2=Maximal Assistance 6=Modified [place] 3=Moderate Assistance 7=Complete IndependenceSCALE: Activities may be completed with or without assistive devices. 7-Rntuhtgxjl-zssurzk completes the activity by him/herself with no assistance from a helper. 5-Set-up or Clean-up Assistance-helper sets up or cleans up; patient completes activity. [place] assists only prior to or following the activity. 4-Supervision or Touching Assistance-helper provides verbal cues and/or touching/steadying and/or contact guard assistance as patient completes activity. Assistance may be provided throughout the activity or intermittently. 3-Partial/Moderate Assistance-helper does LESS THAN HALF the effort. [place] lifts, holds or supports trunk or limbs, but provides less than half the effort. 2-Substantial/Maximal Assistance-helper does MORE THAN HALF the effort. [place] lifts or holds trunk or limbs and provides more than half the effort. 1-Pbspotsrc-tigmol does ALL the effort. Patient does none of the effort to complete the activity. Or, the assistance of 2 or more helpers is required for the patient to complete the activity. If activity was not attempted, code reason: 7-Patient Refused. 9-Not Applicable-not attempted and the patient did not perform the activity before the current illness, exacerbation or injury. 10-Not Attempted due to Environmental Limitations-(lack of equipment, weather restraints, etc.). 88-Not Attempted due to Medical Conditions or Safety Concerns. Roll Left to Right (QC): 1 Sit to Lying (QC): 1 Sit to Stand (QC): 1 Chair/Ufh-om-Obbiw Xfer(QC): 1 Car Transfer (QC): 88 Gait Training Does the Patient Walk?: Yes Distance: 10 Walk 10 feet (QC): 1 Walk 50 ft with 2 Turns(QC): 88 Walk 150 ft (QC): 88 Walking 10ft/uneven surface-QC: 2 Gait Persons Needed: 2 Gait Assistive Device: FWW Wheelchair Training Does the Pt Use a Wheelchair?: No Wheel 50 ft with 2 turns (QC): 9 Wheel 150 ft (QC): 9 Stair Training 1 Step (curb) (QC): 88 4 Steps (QC): 88 12 Steps (QC): 88 Balance Picking up an Object (QC): 88 ADL-Treatment Eating (QC): 6 Oral Hygiene (QC): 4 (SBA seated in wheelchair at sink to brush teeth.) Shower/Bathe Self (QC): 2 (Max assist overall. Pt. able to wash chest and under arms. Able to wash right UE. LE covered with cast. OT washes back, veronica area, and bilateral feet.) Upper Body Dressing (QC): 3 (Mod assist. Pt. attempts to down mumu dress but has difficulty manuevering over head and finding correct sleeves. Pt. also has difficulty with sitting balance EOB while performing.) Lower Body Dressing (QC): 1 (TD at this time due to Ax2 for sit to stand and assist for threading.) On/Off Footwear (QC): 3 (Min assist with use of sock aide and dressing stick to doff/don slipper socks.) Toileting Hygiene (QC): 3 (Mod assist overall to toilet self after BM.) Toilet Transfer (QC): 3 (Mod assist sit-stand and pivot with use of grab bar to transfer to toilet.) Assessment/Plan Assessment and Plan Assess & Plan/Chief Complaint Assessment: Left femoral neck fracture Left humerus fracture Diabetes mellitus moderate control with hemoglobin A1c 8.6 Hyperlipidemia Hypertension Cognitive deficit [place] score is 25/30 Sundowning and nighttime confusion on 02/04/2021 Acute hypokalemia added supplement on admission Postoperative anemia hemoglobin 11 Postop constipation now resolved Urinary retention acute on chronic requiring Guerrero catheter Plan: Blood sugar control Pain control Bowel regimen Monitor confusion 02/05/2021: Continue pain control Urinary catheter plan 02/06/2021: Urology appreciated Aggressive rehab 02/07/2021: Close monitoring of glucose Monitor closely (1) Fracture of femoral neck, left JEFF WASHBURN Feb 07, 2021 05:24
[2021-02-07] MEDS: glipiZIDE XL 5 MG (GLUCOTROL XL) TAB PO SCH (06:19)
[2021-02-07] MEDS: VENlafaxine XR 75 MG (EFFEXOR XR) CAP PO SCH (06:19)
[2021-02-07] MEDS: DOXYCYCLINE 100 MG (VIBRAMYCIN) TABLET PO SCH ×2 (06:19→17:15)
[2021-02-07] MEDS: BETHANECHOL 25 MG (URECHOLINE) TAB PO SCH ×4 (06:20→21:45)
[2021-02-07] MEDS: inSUlin ASPART (NovoLOG) 1 UNIT/0.01 ML (CHARGE PER UNIT) SC SCH ×4 (06:20→21:00)
[2021-02-07 07:32] VITALS: BP 145/67
[2021-02-07] MEDS: FAMOTIDINE 20 MG (PEPCID) TABLET PO SCH (08:53)
[2021-02-07] MEDS: KCL 10 MEQ TAB (MICRO K) PO SCH ×2 (08:53→21:45)
[2021-02-07] MEDS: TAMSULOSIN 0.4 MG (FLOMAX) CAP PO SCH ×2 (08:54→21:45)
[2021-02-07] MEDS: amLODIPine 5 MG (NORVASC) TAB PO SCH (08:54)
[2021-02-07] MEDS: LOSARTAN 100 MG (COZAAR) TABLET PO SCH (08:54)
[2021-02-07] MEDS: meTOprolol TARTRATE 25 MG (LOPRESSOR) TABLET PO SCH ×2 (08:54→21:45)
[2021-02-07] MEDS: inSUlin NPH (NovoLIN N) 1 UNIT/0.01 ML (CHARGE PER UNIT) SQ SCH ×2 (08:58→21:46)
[2021-02-07] MEDS: DOCUSATE SODIUM 100 MG (COLACE) CAP PO SCH ×2 (09:00→21:46)
[2021-02-07] MEDS: polyethylene glycoL POWDER 17 GM (MIRALAX) PACK PO SCH ×2 (09:01→21:00)
[2021-02-07] MEDS: SENNA W/DOCUSATE (SENOKOT S) TABLET PO SCH ×2 (09:01→21:45)
--- NOTE | 2021-02-07 10:02 | Physical Therapy Daily Note ---
PT Daily Note-Current Subjective Pt laying Supine in bed upon arrival. Pt agrees to PT and reports brief and bedding being wet. Pain Location: No Pain Reported Mental Status Patient Orientation: Person, Place, Situation Transfers SCALE: Activities may be completed with or without assistive devices. 3-Hvwqtmtzqa-lhenvuz completes the activity by him/herself with no assistance from a helper. 5-Set-up or Clean-up Assistance-helper sets up or cleans up; patient completes activity. [place] assists only prior to or following the activity. 4-Supervision or Touching Assistance-helper provides verbal cues and/or to uching/steadying and/or contact guard assistance as patient completes activity. Assistance may be provided throughout the activity or intermittently. 3-Partial/Moderate Assistance-helper does LESS THAN HALF the effort. [place] lifts, holds or supports trunk or limbs, but provides less than half the effort. 2-Substantial/Maximal Assistance-helper does MORE THAN HALF the effort. [place] lifts or holds trunk or limbs and provides more than half the effort. 9-Djccvpdly-stzhkr does ALL the effort. Patient does none of the effort to complete the activity. Or, the assistance of 2 or more helpers is required for the patient to complete the activity. If activity was not attempted, code reason: 7-Patient Refused. 9-Not Applicable-not attempted and the patient did not perform the activity before the current illness, exacerbation or injury. 10-Not Attempted due to Environmental Limitations-(lack of equipment, weather restraints, etc.). 88-Not Attempted due to Medical Conditions or Safety Concerns. Lying to Sitting/Side of Bed(Q: 3 Sit to Stand (QC): 3 Toilet Transfer (QC): 3 Weight Bearing Right Lower Extremity: Right Full Weight Bearing Left Lower Extremity: Left Weight Bearing/Tolerated Gait Training Does the Patient Walk?: Yes Distance: 100' x2 Walk 10 feet (QC): 4 Walk 50 ft with 2 Turns(QC): 4 Walk 150 ft (QC): 4 Gait Persons Needed: 1 Gait Assistive Device: FWW Pt has very slow evelyn. Treatments 800-900: Pt transfers to EOB and able to don/doff new brief as well as clean veronica area with assist from DEVELOPMENT LEAD. Pt don/doff new gown before RB. Pt amb. in hallway, taking RB as needed. Pt returns to room to use BR. All needs met, call light in hand & pt resting in recliner. [id number]: Pt finishing lunch as DEVELOPMENT LEAD and pt discuss Weekly Mtg and progress pt is making towards goals. Pt will likely be a Recheck, giving pt another week to show progress. Pt declines needing to use BR and all needs met, call light in hand. Assessment Current Status: Fair Progress Pt is gaining strength and mobility but was incontinent this morning, not calling staff before wetting bed. PT Short Term Goals Short Term Goals Time Frame: Feb 10, 2021 Roll Left & Right: 4 Sit to lyin Lying to sitting on side of be: 4 Sit to stand: 4 Chair/ueq-ld-yucwd transfer: 4 Toilet transfer: 4 Car transfer: 3 Walk 10 feet: 4 Walk 50 feet with two turns: 4 PT Fruit Packer Face And Fill Goals Skilled Nursing Goals PT Fruit Packer Face And Fill Goals Time Frame: Feb 17, 2021 Roll Left & Right (QC): 6 Sit to Lying (QC): 6 Lying-Sitting on Side/Bed(QC): 6 Sit to Stand (QC): 6 Chair/Wvs-uy-Awcbt Xfer(QC): 6 Toilet Transfer (QC): 5 Car Transfer (QC): 5 Does the Patient Walk: Yes Walk 10 feet (QC): 5 Walk 50ft with 2 Turns (QC): 5 Walk 150 ft (QC): 5 Walking 10ft on Uneven Surface: 5 1 Step (curb) (QC): 5 4 Steps (QC): 5 12 Steps (QC): 88 Picking up an Object (QC): 88 Wheel 50 feet with 2 turns (QC: 9 Wheel 150 feet: 9 PT Plan Problem List Problem List: Activity Tolerance, Gait, Transfer Treatment/Plan Treatment Plan: Continue Plan of Care Treatment Plan: Bed Mobility, Functional Activity Tamiko, Functional Strength, Group Therapy, Gait, Safety, Therapeutic Exercise, Transfers Treatment Duration: Feb 17, 2021 Frequency: 11 times per week Estimated Hrs Per Day: 1.5 hours per day Patient and/or Family Agrees t: Yes Safety Risks/Education Patient Education: Gait Training, Transfer Techniques, Correct Positioning, Safety Issues Teaching Recipient: Patient Teaching Methods: Discussion Response to Teaching: Verbalize Understanding Time/GCodes Time In: 800 Time Out: 900 Total Billed Treatment Time: 60 Total Billed Treatment 800-900: 1, FA x3 (40m) & GT (20m) [id number]: 1, FA (15m) KELSEY MULLINS DEVELOPMENT LEAD Feb 07, 2021 10:02
--- NOTE | 2021-02-07 10:40 | Speech Therapy Daily Note ---
Speech Daily Progress Note Subjective Date Seen by Provider: Feb 07, 2021 Time Seen by Provider: 00:30 Patient was resting in her recliner following all of her other therapy. Patient states she isn't having much pain today. Objective Patient completed cognitive tasks at the 85% accuracy range.with decreased cues. Assessment Assessment Current Status: Good Progress Treatment Plan Continue Plan of Care Speech Short Term Goals Short Term Goals Short Term Goals 1) Patient will complete safety awareness tasks at 90% or greater with minimal cues. 2) Patient will complete new information recall tasks at 90% or greater with minimal cues. Speech Software Support Technician Goals Software Support Technician Goals Patient will demonstrate the ability to communicate and complete daily tasks with minimal assist. Speech-Plan Patient/Family Goals Patient/Family Goals: Patient plans to return on returning to her home where she lives with her . Treatment Plan Speech Therapy Treatment Plan: Continue Plan of Care Treatment Duration: Feb 17, 2021 Frequency: 4 times per week Estimated Hrs Per Day: .5 hour per day Rehab Potential: Good Barriers to Learning: Patient's recent CVA and age Pt/Family Agrees to Plan: Yes Safety Risks/Education Teaching Recipient: Patient Teaching Methods: Demonstration, Discussion Response to Teaching: Verbalize Understanding, Return Demonstration Education Topics Provided: Continued safety within her room and upon her return home. Time Speech Therapy Time In: 10:30 Speech Therapy Time Out: 11:00 Total Billed Time: 30 Billed Treatment Time 1MAYELA BETHANIA ST Feb 07, 2021 10:40
--- NOTE | 2021-02-07 15:45 | Occupational Ther Daily Note ---
OT Current Status-Daily Note Subjective No pain reported. Appearance Pt. up in chair. Agrees to work with OT. Mental Status/Objective Patient Orientation: Person, Place ADL-Treatment Therapy Code Descriptions/Definitions Functional [place] Measure: 0=Not Assessed/NA 4=Minimal Assistance 1=Total Assistance 5=Supervision or Setup 2=Maximal Assistance 6=Modified [place] 3=Moderate Assistance 7=Complete IndependenceSCALE: Activities may be completed with or without assistive devices. 6-Aupduiivzu-xxnhjbd completes the activity by him/herself with no assistance from a helper. 5-Set-up or Clean-up Assistance-helper sets up or cleans up; patient completes activity. [place] assists only prior to or following the activity. 4-Supervision or Touching Assistance-helper provides verbal cues and/or touching/steadying and/or contact guard assistance as patient completes activity. Assistance may be provided throughout the activity or intermittently. 3-Partial/Moderate Assistance-helper does LESS THAN HALF the effort. [place] lifts, holds or supports trunk or limbs, but provides less than half the effort. 2-Substantial/Maximal Assistance-helper does MORE THAN HALF the effort. [place] lifts or holds trunk or limbs and provides more than half the effort. 3-Rglckxsfv-slvpbf does ALL the effort. Patient does none of the effort to complete the activity. Or, the assistance of 2 or more helpers is required for the patient to complete the activity. If activity was not attempted, code reason: 7-Patient Refused. 9-Not Applicable-not attempted and the patient did not perform the activity before the current illness, exacerbation or injury. 10-Not Attempted due to Environmental Limitations-(lack of equipment, weather restraints, etc.). 88-Not Attempted due to Medical Conditions or Safety Concerns. Oral Hygiene (QC): 5 (Seated in chair in room.) Shower/Bathe Self (QC): 3 (Min assist in stance for balance. Pt. able to wash all other parts sitting. Pt. utilized LH sponge.) Upper Body Dressing (QC): 3 (Mod assist to don shirt.) Lower Body Dressing (QC): 2 (Max assist overall to don pants. Pt. utilized AE.) On/Off Footwear: 3 (Min assist with sock aide.) Education OT Patient Education: Correct positioning, Modified ADL techniques, Progress toward Goal/Update tx plan, Purpose of tx/functional activities, Reviewed precautions, Rehab process, Transfer techniques, Use of adapted equipment Teaching Recipient: Patient Teaching Methods: Demonstration, Discussion Response to Teaching: Verbalize Understanding, Return Demonstration OT Short Term Goals Short Term Goals Eatin Oral hygiene: 6 Toileting hygiene: 4 Shower/bathe self: 4 Upper body dressin Lower body dressin Putting on/taking off footwear: 5 OT Patient Monitor Goals Longterm Goals Time Frame: Feb 17, 2021 Eating (QC): 6 Oral Hygiene (QC): 6 Toileting Hygiene (QC): 6 Shower/Bathe Self (QC): 6 Upper Body Dressing (QC): 6 Lower Body Dressing (QC): 6 On/Off Footwear (QC): 6 Additional Goals: 1-Demonstrate ADL Tasks, 2-Verbalize Understanding, 3- ImproveStrength/Tamiko 1=Demonstrate adherence to instructed precautions during ADL tasks. 2=Patient will verbalize/demonstrate understanding of assistive devices/modifications for ADL. 3=Patient will improve strength/tolerance for activity to enable patient to perform ADL's. OT Education/Plan Problem List/Assessment Assessment: Decreased Activ Tolerance, Decreased UE Strength, Dependent Transfers, Impaired Funct Balance, Impaired I ADL's, Impaired Self-Care Skills Discharge Recommendations Plan/Recommendations: Continue POC Therapy Discharge Recommendati: Home & Family, Post Acute OT Equpiment Recommendations-D/C: Hip Kit Treatment Plan/Plan of Care Treatment,Training & Education: Yes Patient would benefit from OT for education, treatment and training to promote independence in ADL's, mobility, safety and/or upper extremity function for ADL's. Plan of Care: ADL Retraining, Caregiver Training, Functional Mobility, Group Exercise/Act as Ind, Orthotic Fitting/Training, UE Funct Exercise/Act, W/C Management Training Treatment Duration: Feb 17, 2021 Frequency: At least 5 of 7 days/Wk (IRF) Estimated Hrs Per Day: 1.5 hours per day Agreement: Yes Rehab Potential: Good Time/GCodes Start Time: 11:00 Stop Time: 12:15 Total Time Billed (hr/min): 75 Billed Treatment Time 1, ADL x 5 ERIKA ZELAYA OT Feb 07, 2021 15:45
[2021-02-07 20:00] VITALS: BP 118/63
[2021-02-07] MEDS: SIMvastatin 10 MG (ZOCOR) TAB PO SCH (21:45)
[2021-02-07] MEDS: MIRTAZAPINE 15 MG (REMERON) TAB PO SCH (21:45)
[2021-02-08] MEDS: inSUlin ASPART (NovoLOG) 1 UNIT/0.01 ML (CHARGE PER UNIT) SC SCH ×4 (05:40→21:29)
--- NOTE | 2021-02-08 06:10 | PM&R Progress Note ---
Subjective HPI/CC On Admission Date Seen by Provider: Feb 08, 2021 Time Seen by Provider: 10:00 Subjective/Events-last exam 02/08/2021: Pt doing pretty well Bowels moved yesterday Incontinence is chronic No pain is reported 02/07/2021: Pt doing pretty well No pain reported Voiding well Incontinent Her bottom is red but will monitor that Bowels moved yesterday 02/06/2021: Pt doing pretty well Participating in therapy Will DC the catheter and see if she can void on her own Urecholine and Flomax ordered Hgb 9.6 Bowels moved yesterday Sugars are okay 02/05/2021: Patient did not sleep well Did not call her family in the medical night like last night Left ankle skin graft has a bit of blisters so will monitor that closely Blood pressure was very elevated at 180/74 We will discontinue the catheter tomorrow Urinary medication given since she has retention after Guerrero catheters in the past Not moving too good overall 02/04/2021: This visit is via video chat due to Covid related restriction for this provider Patient in a really good mood today Bowels moved today Oxycodone doing pretty well for the left elbow pain Confused at night and called all of her family members at 0400 hrs. and her came to check on her at 4:00 this morning She is aware that she was confused and feels embarrassed about it Slums score is 25/30 so she definitely had some confusion with delirium and cognitive decline status We will monitor closely Review of Systems General: Fatigue, Malaise Musculoskeletal: arm pain, leg pain Neurological: Weakness Objective Exam Vital Signs Vital Signs Date Time Temp Pulse Resp B/P (MAP) Pulse Ox O2 Delivery O2 Flow Rate FiO2 02/08/21 20:00 36.6 76 18 122/56 (78) 92 Room Air 02/07/21 06:41 0.00 Capillary Refill : General Appearance: No Apparent Distress, WD/WN, Chronically ill, Obese HEENT: PERRL/EOMI, Normal ENT Inspection, Pharynx Normal, Moist Mucous Membranes; No Scleral Icterus (L), No Scleral Icterus (R) Neck: Normal Inspection, Supple Respiratory: Chest Non Tender, Lungs Clear, Normal Breath Sounds, No Accessory Muscle Use, No Respiratory Distress Cardiovascular: Regular Rate, Rhythm, No Edema, No Gallop, No JVD, No Murmur Gastrointestinal: Normal Bowel Sounds, Non Tender, Soft Extremity: No Calf Tenderness, No Pedal Edema Neurologic/Psychiatric: Alert, Oriented x3, Normal Mood/Affect, seafood preparer II-XII Norm as Tested, Abnormal Gait, Depressed Affect, Motor Weakness (Left arm and left leg) Skin: Normal Color, Warm/Dry Results/Procedures Lab Patient resulted labs reviewed. Imaging: Reviewed Imaging Report FIM Transfers Therapy Code Descriptions/Definitions Functional [place] Measure: 0=Not Assessed/NA 4=Minimal Assistance 1=Total Assistance 5=Supervision or Setup 2=Maximal Assistance 6=Modified [place] 3=Moderate Assistance 7=Complete IndependenceSCALE: Activities may be completed with or without assistive devices. 4-Ltinmampqy-wirsswm completes the activity by him/herself with no assistance from a helper. 5-Set-up or Clean-up Assistance-helper sets up or cleans up; patient completes activity. [place] assists only prior to or following the activity. 4-Supervision or Touching Assistance-helper provides verbal cues and/or touching/steadying and/or contact guard assistance as patient completes activity. Assistance may be provided throughout the activity or intermittently. 3-Partial/Moderate Assistance-helper does LESS THAN HALF the effort. [place] lifts, holds or supports trunk or limbs, but provides less than half the effort. 2-Substantial/Maximal Assistance-helper does MORE THAN HALF the effort. [place] lifts or holds trunk or limbs and provides more than half the effort. 6-Etvvqjmmd-jtabza does ALL the effort. Patient does none of the effort to complete the activity. Or, the assistance of 2 or more helpers is required for the patient to complete the activity. If activity was not attempted, code reason: 7-Patient Refused. 9-Not Applicable-not attempted and the patient did not perform the activity before the current illness, exacerbation or injury. 10-Not Attempted due to Environmental Limitations-(lack of equipment, weather restraints, etc.). 88-Not Attempted due to Medical Conditions or Safety Concerns. Roll Left to Right (QC): 1 Sit to Lying (QC): 1 Sit to Stand (QC): 3 Chair/Efu-hy-Dpggz Xfer(QC): 1 Car Transfer (QC): 88 Gait Training Does the Patient Walk?: Yes Distance: 100' x2 Walk 10 feet (QC): 4 Walk 50 ft with 2 Turns(QC): 4 Walk 150 ft (QC): 4 Walking 10ft/uneven surface-QC: 2 Gait Persons Needed: 1 Gait Assistive Device: FWW Wheelchair Training Does the Pt Use a Wheelchair?: No Wheel 50 ft with 2 turns (QC): 9 Wheel 150 ft (QC): 9 Stair Training 1 Step (curb) (QC): 88 4 Steps (QC): 88 12 Steps (QC): 88 Balance Picking up an Object (QC): 88 ADL-Treatment Eating (QC): 6 Oral Hygiene (QC): 5 (Seated in chair in room.) Shower/Bathe Self (QC): 3 (Min assist in stance for balance. Pt. able to wash all other parts sitting. Pt. utilized LH sponge.) Upper Body Dressing (QC): 3 (Mod assist to don shirt.) Lower Body Dressing (QC): 2 (Max assist overall to don pants. Pt. utilized AE.) On/Off Footwear (QC): 3 (Min assist with sock aide.) Toileting Hygiene (QC): 3 (Mod assist overall to toilet self after BM.) Toilet Transfer (QC): 3 (Mod assist sit-stand and pivot with use of grab bar to transfer to toilet.) Assessment/Plan Assessment and Plan Assess & Plan/Chief Complaint Assessment: Left femoral neck fracture Left humerus fracture Diabetes mellitus moderate control with hemoglobin A1c 8.6 Hyperlipidemia Hypertension Cognitive deficit slums score is 25/30 Sundowning and nighttime confusion on 02/04/2021 Acute hypokalemia added supplement on admission Postoperative anemia hemoglobin 11 Postop constipation now resolved Urinary retention acute on chronic requiring Guerrero catheter Plan: Blood sugar control Pain control Bowel regimen Monitor confusion 02/05/2021: Continue pain control Urinary catheter plan 02/06/2021: Urology appreciated Aggressive rehab 02/07/2021: Close monitoring of glucose Monitor closely 02/08/2021: Continue aggressive treatment Pain control Monitor closely (1) Fracture of femoral neck, left WASHBURNLATHARichie ARANA Feb 08, 2021 06:10
[2021-02-08] MEDS: glipiZIDE XL 5 MG (GLUCOTROL XL) TAB PO SCH (06:27)
[2021-02-08] MEDS: BETHANECHOL 25 MG (URECHOLINE) TAB PO SCH ×3 (06:27→20:17)
[2021-02-08] MEDS: VENlafaxine XR 75 MG (EFFEXOR XR) CAP PO SCH (06:28)
[2021-02-08 07:44] VITALS: BP 123/59
[2021-02-08] MEDS: FAMOTIDINE 20 MG (PEPCID) TABLET PO SCH (07:54)
[2021-02-08] MEDS: TAMSULOSIN 0.4 MG (FLOMAX) CAP PO SCH ×2 (07:54→20:17)
[2021-02-08] MEDS: KCL 10 MEQ TAB (MICRO K) PO SCH ×2 (07:54→20:17)
[2021-02-08] MEDS: LOSARTAN 100 MG (COZAAR) TABLET PO SCH (07:55)
[2021-02-08] MEDS: meTOprolol TARTRATE 25 MG (LOPRESSOR) TABLET PO SCH ×2 (07:55→20:17)
[2021-02-08] MEDS: amLODIPine 5 MG (NORVASC) TAB PO SCH (07:55)
[2021-02-08] MEDS: polyethylene glycoL POWDER 17 GM (MIRALAX) PACK PO SCH ×2 (07:55→19:33)
[2021-02-08] MEDS: SENNA W/DOCUSATE (SENOKOT S) TABLET PO SCH ×2 (07:55→20:17)
[2021-02-08] MEDS: DOCUSATE SODIUM 100 MG (COLACE) CAP PO SCH ×2 (07:55→20:17)
[2021-02-08] MEDS: inSUlin NPH (NovoLIN N) 1 UNIT/0.01 ML (CHARGE PER UNIT) SQ SCH ×2 (07:58→21:30)
--- NOTE | 2021-02-08 10:42 | Speech Therapy Daily Note ---
Speech Daily Progress Note Subjective Date Seen by Provider: Feb 08, 2021 Time Seen by Provider: 00:30 Patient was resting in her recliner following her OT and PT session. She states her pain meds are working and she isn't in pain at the moment. Objective Patient completed general information questions with 85% with minimal cues. Assessment Assessment Current Status: Good Progress Treatment Plan Continue Plan of Care Speech Short Term Goals Short Term Goals Short Term Goals 1) Patient will complete safety awareness tasks at 90% or greater with minimal cues. 2) Patient will complete new information recall tasks at 90% or greater with minimal cues. Speech Half-Way Goals Half-Way Goals Patient will demonstrate the ability to communicate and complete daily tasks with minimal assist. Speech-Plan Patient/Family Goals Patient/Family Goals: Patient plans on returning to her home where she lives with her . She will receive home health upon her return home. Treatment Plan Speech Therapy Treatment Plan: Continue Plan of Care Treatment Duration: Feb 17, 2021 Frequency: 4 times per week Estimated Hrs Per Day: .5 hour per day Rehab Potential: Good Barriers to Learning: Patient's mild cognitive deficits, however deficits are resolving well Pt/Family Agrees to Plan: Yes Safety Risks/Education Teaching Recipient: Patient Teaching Methods: Demonstration, Discussion Response to Teaching: Verbalize Understanding, Return Demonstration Education Topics Provided: Continued safety within her room, communication of wants/needs Time Speech Therapy Time In: 10:30 Speech Therapy Time Out: 11:00 Billed Treatment Time 1, CONSTANCE Lange Feb 08, 2021 10:42
--- NOTE | 2021-02-08 11:06 | Physical Therapy Daily Note ---
PT Daily Note-Current Subjective Pt sitting in recliner upon arrival. Pt agrees to PT and asks to use BR. Pain Numeric Pain Scale: 9 Location: Left, Upper Location Body Site: Thigh Pain Description: Ache, Tightness Mental Status Patient Orientation: Person, Place, Situation Attachments: Other-See Comments (Sling for L UE) Transfers SCALE: Activities may be completed with or without assistive devices. 4-Oncqlxnuyw-wruylwy completes the activity by him/herself with no assistance from a helper. 5-Set-up or Clean-up Assistance-helper sets up or cleans up; patient completes activity. [place] assists only prior to or following the activity. 4-Supervision or Touching Assistance-helper provides verbal cues and/or touching/steadying and/or contact guard assistance as patient completes activity. Assistance may be provided throughout the activity or intermittently. 3-Partial/Moderate Assistance-helper does LESS THAN HALF the effort. [place] lifts, holds or supports trunk or limbs, but provides less than half the effort. 2-Substantial/Maximal Assistance-helper does MORE THAN HALF the effort. [place] lifts or holds trunk or limbs and provides more than half the effort. 8-Atcefaduo-tqdtmf does ALL the effort. Patient does none of the effort to complete the activity. Or, the assistance of 2 or more helpers is required for the patient to complete the activity. If activity was not attempted, code reason: 7-Patient Refused. 9-Not Applicable-not attempted and the patient did not perform the activity before the current illness, exacerbation or injury. 10-Not Attempted due to Environmental Limitations-(lack of equipment, weather restraints, etc.). 88-Not Attempted due to Medical Conditions or Safety Concerns. Sit to Stand (QC): 3 Toilet Transfer (QC): 3 Weight Bearing Right Lower Extremity: Right Full Weight Bearing Left Lower Extremity: Left Weight Bearing/Tolerated Gait Training Does the Patient Walk?: Yes Distance: 100' Walk 10 feet (QC): 4 Walk 50 ft with 2 Turns(QC): 4 Gait Persons Needed: 1 Gait Assistive Device: FWW Very slow evelyn, analgetic gait since hadn't taken pain med yet. Fatigues quickly and needs RB to recover. Exercises Seated Therapy Exercises: Ankle pumps, Long arc quads, Hip flexion, Hip abd/add, Glut set Seated Reps: 15 Standing: Sit to Stand, Weight shifts Treatments TF to standing and amb. to BR. Pt amb. in hallway with a couple of RB as needed for fatigue and pain. Pt completes Seated EX before OT joining for a little co- treat at end of tx. OT/PT completed partial co-treatment due to need of skilled assist x 2. Pt. seen in parallel bars to simulate standing task during ADL treatment of toileting self during toileting. PT assisted with standing balance and weight shifts while OT facilitated pt. letting go of bar with right UE, twisting to reach behind her, and reaching for therapy clothespins, (simulating cleansing rear veronica area.) Pt. did well but fatigues easily. Pt. stood several times, with cues for proper positioning of self beforehand. Mod assist x 2 for sit-stand. OT continues session as PT departs. Assessment Pt has very slow evelyn and is limited by pain. Pt fatigues and needs occasional RB. PT Short Term Goals Short Term Goals Time Frame: Feb 10, 2021 Roll Left & Right: 4 Sit to lyin Lying to sitting on side of be: 4 Sit to stand: 4 Chair/rju-kh-djaxm transfer: 4 Toilet transfer: 4 Car transfer: 3 Walk 10 feet: 4 Walk 50 feet with two turns: 4 PT [facility]ci Goals Fci Goals PT [employer] Goals Time Frame: Feb 17, 2021 Roll Left & Right (QC): 6 Sit to Lying (QC): 6 Lying-Sitting on Side/Bed(QC): 6 Sit to Stand (QC): 6 Chair/Ipp-pl-Luzzt Xfer(QC): 6 Toilet Transfer (QC): 5 Car Transfer (QC): 5 Does the Patient Walk: Yes Walk 10 feet (QC): 5 Walk 50ft with 2 Turns (QC): 5 Walk 150 ft (QC): 5 Walking 10ft on Uneven Surface: 5 1 Step (curb) (QC): 5 4 Steps (QC): 5 12 Steps (QC): 88 Picking up an Object (QC): 88 Wheel 50 feet with 2 turns (QC: 9 Wheel 150 feet: 9 PT Plan Problem List Problem List: Activity Tolerance, Functional Strength, Gait, Transfer Treatment/Plan Treatment Plan: Continue Plan of Care Treatment Plan: Bed Mobility, Functional Activity Tamiko, Functional Strength, Group Therapy, Gait, Safety, Therapeutic Exercise, Transfers Treatment Duration: Feb 17, 2021 Frequency: 11 times per week Estimated Hrs Per Day: 1.5 hours per day Patient and/or Family Agrees t: Yes Safety Risks/Education Patient Education: Gait Training, Transfer Techniques, Correct Positioning, Safety Issues Teaching Recipient: Patient Teaching Methods: Discussion Response to Teaching: Verbalize Understanding Time/GCodes Time In: 900 Time Out: 1000 Total Billed Treatment Time: 60 Total Billed Treatment Co-treat from 945-1000 1, FA (20m), GT x2 (25m) & EX (15m) KELSEY MULLINS DISULFURIZER TENDER Feb 08, 2021 11:06
--- NOTE | 2021-02-08 11:26 | Occupational Ther Daily Note ---
OT Current Status-Daily Note Subjective Pt. reports 8/10 pain in left hip with movement. Pt. has just received pain medication. Mental Status/Objective Patient Orientation: Person, Place, Time, Situation ADL-Treatment Therapy Code Descriptions/Definitions Functional [place] Measure: 0=Not Assessed/NA 4=Minimal Assistance 1=Total Assistance 5=Supervision or Setup 2=Maximal Assistance 6=Modified [place] 3=Moderate Assistance 7=Complete IndependenceSCALE: Activities may be completed with or without assistive devices. 5-Raueukoash-hwindqc completes the activity by him/herself with no assistance from a helper. 5-Set-up or Clean-up Assistance-helper sets up or cleans up; patient completes activity. [place] assists only prior to or following the activity. 4-Supervision or Touching Assistance-helper provides verbal cues and/or touching/steadying and/or contact guard assistance as patient completes activity. Assistance may be provided throughout the activity or intermittently. 3-Partial/Moderate Assistance-helper does LESS THAN HALF the effort. [place] lifts, holds or supports trunk or limbs, but provides less than half the effort. 2-Substantial/Maximal Assistance-helper does MORE THAN HALF the effort. [place] lifts or holds trunk or limbs and provides more than half the effort. 6-Duinuvqfx-joqsps does ALL the effort. Patient does none of the effort to complete the activity. Or, the assistance of 2 or more helpers is required for the patient to complete the activity. If activity was not attempted, code reason: 7-Patient Refused. 9-Not Applicable-not attempted and the patient did not perform the activity before the current illness, exacerbation or injury. 10-Not Attempted due to Environmental Limitations-(lack of equipment, weather restraints, etc.). 88-Not Attempted due to Medical Conditions or Safety Concerns. Toileting Hygiene (QC): 3 (Mod assist. Pt. requires assist to pull up/down brief, but is able to cleanse self after urinating.) Toilet Transfer (QC): 3 (Mod assist sit-stand, and min assist to transfer to/from toilet.) Other Treatment OT/PT completed partial co-treatment due to need of skilled assist x 2. Pt. seen in parallel bars to simulate standing task during ADL treatment of toileting self during toileting. PT assisted with standing balance and weight shifts while OT facilitated pt. letting go of bar with right UE, twisting to reach behind her, and reaching for therapy clothespins, (simulating cleansing rear veronica area.) Pt. did well but fatigues easily. Pt. stood several times, with cues for proper positioning of self beforehand. Mod assist x 2 for sit- stand. After PT left session, OT and pt. talked in depth about pt's goals for home, and what she specifically has to do to go home. Pt. states that her spouse can assist and is in good health. However, pt. is educated about need to be as independent as possible, and that at very minimum, pt will need to be independent with toileting self and transfers so that her spouse does to have to do these things for her all the time. Pt. states, "I am lazy, and if I don't want to do something, sometimes I just don't do them." Pt. verbalizes understanding. Requests bathroom and taken to toilet. After toileting, pt. stood from elevated toilet with min assist and grab bar to walker. Ambulated with min/mod assist with walker to chair. All needs met in chair. Education OT Patient Education: Correct positioning, Exercise program, Modified ADL techniques, Progress toward Goal/Update tx plan, Purpose of tx/functional activ ities, Reviewed precautions, Rehab process, Transfer techniques Teaching Recipient: Patient Teaching Methods: Demonstration, Discussion Response to Teaching: Verbalize Understanding, Return Demonstration OT Short Term Goals Short Term Goals Eatin Oral hygiene: 6 Toileting hygiene: 4 Shower/bathe self: 4 Upper body dressin Lower body dressin Putting on/taking off footwear: 5 OT Fdc Goals Fdc Goals Time Frame: Feb 17, 2021 Eating (QC): 6 Oral Hygiene (QC): 6 Toileting Hygiene (QC): 6 Shower/Bathe Self (QC): 6 Upper Body Dressing (QC): 6 Lower Body Dressing (QC): 6 On/Off Footwear (QC): 6 Additional Goals: 1-Demonstrate ADL Tasks, 2-Verbalize Understanding, 3- ImproveStrength/Tamiko 1=Demonstrate adherence to instructed precautions during ADL tasks. 2=Patient will verbalize/demonstrate understanding of assistive devices/modifications for ADL. 3=Patient will improve strength/tolerance for activity to enable patient to perform ADL's. OT Education/Plan Problem List/Assessment Assessment: Decreased Activ Tolerance, Decreased UE Strength, Dependent Transfers, Impaired Bed Mobility, Impaired Funct Balance, Impaired I ADL's, Impaired Self-Care Skills, Restricted Funct UE ROM Discharge Recommendations Plan/Recommendations: Continue POC Therapy Discharge Recommendati: Home & Family, Post Acute OT Equpiment Recommendations-D/C: Hip Kit Treatment Plan/Plan of Care Treatment,Training & Education: Yes Patient would benefit from OT for education, treatment and training to promote independence in ADL's, mobility, safety and/or upper extremity function for ADL's. Plan of Care: ADL Retraining, Caregiver Training, Functional Mobility, Group Exercise/Act as Ind, Orthotic Fitting/Training, UE Funct Exercise/Act, W/C Management Training Treatment Duration: Feb 17, 2021 Frequency: At least 5 of 7 days/Wk (IRF) Estimated Hrs Per Day: 1.5 hours per day Agreement: Yes Rehab Potential: Good Time/GCodes Start Time: 09:45 Stop Time: 10:35 Total Time Billed (hr/min): 50 Billed Treatment Time [id number] 1, FA x 15minutes- Co-treat with PT [id number] FA x 15minutes, ADL x 20minutes ERIKA ZELAYA OT Feb 08, 2021 11:26
--- NOTE | 2021-02-08 15:20 | Therapy Group Daily Note ---
Therapy Daily Group Note Patient Education Topic Energy Cons Exercises LE Seated Exercise, UE Exercise Session Ratio (pt:therapist): 4:1 Goal of Session: Energy Conservation Tech., UE/LE Strengthing Goal Met for this Session: Yes Pt Benefit of Group: Contributions to Others, F/U Use of Strategies @Home, Increased Functional Safety, Increased Functional Strength, Improved Cognition, Recognition of Peers, Socialization Other/Notes Pt is propelled to PT/OT Group in [facility]. Group consists of Introductions (Name, Location & Favorite Childhood Summer Activity), Socialization, Seated UE/LE Ex ercises, Explanation of Weekly ARU Meeting as well as Energy Conservation Techniques. Pt participated in Group by actively listening to other patients, properly introducing self and completing UE/LE Exercises. Pt returns to room to rest in bed at end of Group with all needs met, call light in hand. Start Time: 13:00 Stop Time: 14:00 Total Billed Treatment Time: 60 Total Billed Treatment 1, GRP KELSEY MULLINS WEB METHODS DEVELOPER Feb 08, 2021 15:20
[2021-02-08 20:00] VITALS: BP 122/56
[2021-02-08] MEDS: SIMvastatin 10 MG (ZOCOR) TAB PO SCH (20:17)
[2021-02-08] MEDS: MIRTAZAPINE 15 MG (REMERON) TAB PO SCH (20:17)
[2021-02-09] MEDS: inSUlin ASPART (NovoLOG) 1 UNIT/0.01 ML (CHARGE PER UNIT) SC SCH ×4 (05:27→20:19)
[2021-02-09] MEDS: VENlafaxine XR 75 MG (EFFEXOR XR) CAP PO SCH (06:00)
[2021-02-09] MEDS: glipiZIDE XL 5 MG (GLUCOTROL XL) TAB PO SCH (06:00)
--- NOTE | 2021-02-09 06:33 | PM&R Progress Note ---
Subjective HPI/CC On Admission Date Seen by Provider: Feb 09, 2021 Time Seen by Provider: 11:00 Subjective/Events-last exam 02/09/2021: Pt in a good mood Tolerating therapy Bowels are moving Bladder scan is showing minimal residual Urecholine down to once a day 02/08/2021: Pt doing pretty well Bowels moved yesterday Incontinence is chronic No pain is reported 02/07/2021: Pt doing pretty well No pain reported Voiding well Incontinent Her bottom is red but will monitor that Bowels moved yesterday 02/06/2021: Pt doing pretty well Participating in therapy Will DC the catheter and see if she can void on her own Urecholine and Flomax ordered Hgb 9.6 Bowels moved yesterday Sugars are okay 02/05/2021: Patient did not sleep well Did not call her family in the medical night like last night Left ankle skin graft has a bit of blisters so will monitor that closely Blood pressure was very elevated at 180/74 We will discontinue the catheter tomorrow Urinary medication given since she has retention after Guerrero catheters in the p ast Not moving too good overall 02/04/2021: This visit is via video chat due to Covid related restriction for this provider Patient in a really good mood today Bowels moved today Oxycodone doing pretty well for the left elbow pain Confused at night and called all of her family members at 0400 hrs. and her came to check on her at 4:00 this morning She is aware that she was confused and feels embarrassed about it Slums score is 25/30 so she definitely had some confusion with delirium and cognitive decline status We will monitor closely Review of Systems General: Fatigue, Malaise Musculoskeletal: arm pain, leg pain Neurological: Weakness Objective Exam Vital Signs Vital Signs Date Time Temp Pulse Resp B/P (MAP) Pulse Ox O2 Delivery O2 Flow Rate FiO2 02/09/21 20:00 36.9 83 18 142/63 (89) 96 Room Air 02/07/21 06:41 0.00 Capillary Refill : General Appearance: No Apparent Distress, WD/WN, Chronically ill, Obese HEENT: PERRL/EOMI, Normal ENT Inspection, Pharynx Normal, Moist Mucous Membranes; No Scleral Icterus (L), No Scleral Icterus (R) Neck: Normal Inspection, Supple Respiratory: Chest Non Tender, Lungs Clear, Normal Breath Sounds, No Accessory Muscle Use, No Respiratory Distress Cardiovascular: Regular Rate, Rhythm, No Edema, No Gallop, No JVD, No Murmur Gastrointestinal: Normal Bowel Sounds, Non Tender, Soft Extremity: No Calf Tenderness, No Pedal Edema Neurologic/Psychiatric: Alert, Oriented x3, Normal Mood/Affect, picture booker II-XII Norm as Tested, Abnormal Gait, Depressed Affect, Motor Weakness (Left arm and left leg) Skin: Normal Color, Warm/Dry Results/Procedures Lab Patient resulted labs reviewed. Imaging: Reviewed Imaging Report FIM Transfers Therapy Code Descriptions/Definitions Functional [place] Measure: 0=Not Assessed/NA 4=Minimal Assistance 1=Total Assistance 5=Supervision or Setup 2=Maximal Assistance 6=Modified [place] 3=Moderate Assistance 7=Complete IndependenceSCALE: Activities may be completed with or without assistive devices. 5-Eyqkdccnpg-zxikjcp completes the activity by him/herself with no assistance from a helper. 5-Set-up or Clean-up Assistance-helper sets up or cleans up; patient completes activity. [place] assists only prior to or following the activity. 4-Supervision or Touching Assistance-helper provides verbal cues and/or touching/steadying and/or contact guard assistance as patient completes activity. Assistance may be provided throughout the activity or intermittently. 3-Partial/Moderate Assistance-helper does LESS THAN HALF the effort. [place] l ifts, holds or supports trunk or limbs, but provides less than half the effort. 2-Substantial/Maximal Assistance-helper does MORE THAN HALF the effort. [place] lifts or holds trunk or limbs and provides more than half the effort. 9-Uxvxgonul-fiivmy does ALL the effort. Patient does none of the effort to complete the activity. Or, the assistance of 2 or more helpers is required for t he patient to complete the activity. If activity was not attempted, code reason: 7-Patient Refused. 9-Not Applicable-not attempted and the patient did not perform the activity before the current illness, exacerbation or injury. 10-Not Attempted due to Environmental Limitations-(lack of equipment, weather restraints, etc.). 88-Not Attempted due to Medical Conditions or Safety Concerns. Roll Left to Right (QC): 1 Sit to Lying (QC): 1 Sit to Stand (QC): 3 Chair/Xyt-yq-Cgxqh Xfer(QC): 1 Car Transfer (QC): 88 Gait Training Does the Patient Walk?: Yes Distance: 100' Walk 10 feet (QC): 4 Walk 50 ft with 2 Turns(QC): 4 Walk 150 ft (QC): 4 Walking 10ft/uneven surface-QC: 2 Gait Persons Needed: 1 Gait Assistive Device: FWW Wheelchair Training Does the Pt Use a Wheelchair?: No Wheel 50 ft with 2 turns (QC): 9 Wheel 150 ft (QC): 9 Stair Training 1 Step (curb) (QC): 88 4 Steps (QC): 88 12 Steps (QC): 88 Balance Picking up an Object (QC): 88 ADL-Treatment Eating (QC): 6 Oral Hygiene (QC): 5 (Seated in chair in room.) Shower/Bathe Self (QC): 3 (Min assist in stance for balance. Pt. able to wash all other parts sitting. Pt. utilized LH sponge.) Upper Body Dressing (QC): 3 (Mod assist to don shirt.) Lower Body Dressing (QC): 2 (Max assist overall to don pants. Pt. utilized AE.) On/Off Footwear (QC): 3 (Min assist with sock aide.) Toileting Hygiene (QC): 3 (Mod assist. Pt. requires assist to pull up/down brief, but is able to cleanse self after urinating.) Toilet Transfer (QC): 3 (Mod assist sit-stand, and min assist to transfer to/from toilet.) Assessment/Plan Assessment and Plan Assess & Plan/Chief Complaint Assessment: Left femoral neck fracture Left humerus fracture Diabetes mellitus moderate control with hemoglobin A1c 8.6 Hyperlipidemia Hypertension Cognitive deficit slums score is 25/30 Sundowning and nighttime confusion on 02/04/2021 Acute hypokalemia added supplement on admission Postoperative anemia hemoglobin 11 Postop constipation now resolved Urinary retention acute on chronic requiring Guerrero catheter Plan: Blood sugar control Pain control Bowel regimen Monitor confusion 02/05/2021: Continue pain control Urinary catheter plan 02/06/2021: Urology appreciated Aggressive rehab 02/07/2021: Close monitoring of glucose Monitor closely 02/08/2021: Continue aggressive treatment Pain control Monitor closely 02/09/2021: Decrease Urecholine Aggressive therapy Monitor sugars (1) Fracture of femoral neck, left WASHBURNJEFF MEJIA DO Feb 09, 2021 06:32
[2021-02-09 07:51] VITALS: BP 131/58
[2021-02-09] MEDS: inSUlin NPH (NovoLIN N) 1 UNIT/0.01 ML (CHARGE PER UNIT) SQ SCH ×2 (08:09→20:09)
[2021-02-09] MEDS: FAMOTIDINE 20 MG (PEPCID) TABLET PO SCH (08:17)
[2021-02-09] MEDS: SENNA W/DOCUSATE (SENOKOT S) TABLET PO SCH ×2 (08:17→20:08)
[2021-02-09] MEDS: DOCUSATE SODIUM 100 MG (COLACE) CAP PO SCH ×2 (08:17→20:09)
[2021-02-09] MEDS: KCL 10 MEQ TAB (MICRO K) PO SCH ×2 (08:17→20:09)
[2021-02-09] MEDS: amLODIPine 5 MG (NORVASC) TAB PO SCH (08:17)
[2021-02-09] MEDS: BETHANECHOL 25 MG (URECHOLINE) TAB PO SCH (08:17)
[2021-02-09] MEDS: LOSARTAN 100 MG (COZAAR) TABLET PO SCH (08:17)
[2021-02-09] MEDS: TAMSULOSIN 0.4 MG (FLOMAX) CAP PO SCH ×2 (08:17→20:08)
[2021-02-09] MEDS: meTOprolol TARTRATE 25 MG (LOPRESSOR) TABLET PO SCH ×2 (08:18→20:08)
--- NOTE | 2021-02-09 08:38 | Speech Therapy Daily Note ---
Speech Daily Progress Note Subjective Date Seen by Provider: Feb 09, 2021 Time Seen by Provider: 00:30 Patient was resting in her bed watching television following breakfast. Objective Patient completed sequencing activities related to daily needs at 85% given min to mod cues and/or redirection. Assessment Assessment Current Status: Good Progress Treatment Plan Continue Plan of Care Speech Short Term Goals Short Term Goals Short Term Goals 1) Patient will complete safety awareness tasks at 90% or greater with minimal cues. 2) Patient will complete new information recall tasks at 90% or greater with minimal cues. Speech Environmental Systems Coordinator Goals Environmental Systems Coordinator Goals Patient will demonstrate the ability to communicate and complete daily tasks with minimal assist. Speech-Plan Patient/Family Goals Patient/Family Goals: Patient plans on returning to her home where she lives with her . Treatment Plan Speech Therapy Treatment Plan: Continue Plan of Care Treatment Duration: Feb 17, 2021 Frequency: 4 times per week Estimated Hrs Per Day: .5 hour per day Rehab Potential: Good Barriers to Learning: Patient's cognitive deficits, recent decline in function with fractures Pt/Family Agrees to Plan: Yes Safety Risks/Education Teaching Recipient: Patient Teaching Methods: Demonstration, Discussion Response to Teaching: Verbalize Understanding, Return Demonstration Education Topics Provided: Continued safety within her room, communication of wants/needs Time Speech Therapy Time In: 08:30 Speech Therapy Time Out: 09:00 Total Billed Time: 30 Billed Treatment Time 1MAYELA BETHANIA ST Feb 09, 2021 08:38
[2021-02-09] MEDS: polyethylene glycoL POWDER 17 GM (MIRALAX) PACK PO SCH ×2 (09:05→20:10)
--- NOTE | 2021-02-09 10:47 | Progress Note - Urology ---
Progress Note-Urology Progress Notes/Assess & Plan Progress/Assessment & Plan CONTINUES EMPTYING WELL. KEEP WEANING AND DO PVR ONLY ONCE A DAY MARQUES FELDER MD Feb 09, 2021 10:47
--- NOTE | 2021-02-09 12:03 | Physical Therapy Daily Note ---
PT Daily Note-Current Subjective Pt laying Supine in bed upon arrival. Pt agrees to PT, reports feeling sleepy. Pain Numeric Pain Scale: 4 Location: Left, Upper Location Body Site: Thigh Pain Description: Ache, Tightness Mental Status Patient Orientation: Person, Place, Situation Attachments: Other-See Comments (Cast for L UE) Transfers SCALE: Activities may be completed with or without assistive devices. 6-Tkqnlqoqsj-adboeim completes the activity by him/herself with no assistance from a helper. 5-Set-up or Clean-up Assistance-helper sets up or cleans up; patient completes activity. [place] assists only prior to or following the activity. 4-Supervision or Touching Assistance-helper provides verbal cues and/or touching/steadying and/or contact guard assistance as patient completes activity. Assistance may be provided throughout the activity or intermittently. 3-Partial/Moderate Assistance-helper does LESS THAN HALF the effort. [place] lifts, holds or supports trunk or limbs, but provides less than half the effort. 2-Substantial/Maximal Assistance-helper does MORE THAN HALF the effort. [place] lifts or holds trunk or limbs and provides more than half the effort. 2-Tbvpzojhb-vanfiu does ALL the effort. Patient does none of the effort to complete the activity. Or, the assistance of 2 or more helpers is required for the patient to complete the activity. If activity was not attempted, code reason: 7-Patient Refused. 9-Not Applicable-not attempted and the patient did not perform the activity before the current illness, exacerbation or injury. 10-Not Attempted due to Environmental Limitations-(lack of equipment, weather restraints, etc.). 88-Not Attempted due to Medical Conditions or Safety Concerns. Lying to Sitting/Side of Bed(Q: 3 Sit to Stand (QC): 3 Toilet Transfer (QC): 3 Weight Bearing Right Lower Extremity: Right Full Weight Bearing Left Lower Extremity: Left Weight Bearing/Tolerated Gait Training Does the Patient Walk?: Yes Distance: 25', 20' & 30' Walk 10 feet (QC): 4 Walk 50 ft with 2 Turns(QC): 4 Gait Persons Needed: 1 Gait Assistive Device: FWW WC to follow for fatigue. Wheelchair Training Does the Pt Use a Wheelchair?: Yes Wheel 50 ft with 2 turns (QC): 4 Type of Wheelchair: Manual Exercises Seated Therapy Exercises: Sit to stand Treatments [id number]: TF to EOB then stands and amb. to BR. After toileting, pt amb. in hallway with several RB as needed for fatigue. PT is joined by OT at this time. Pt propels [facility] with assist from staff. Pt practices proper standing posture in //bars with mirror for visual confirmation. PT departs, OT continues tx. PT works on transfers, and engaging core muscles for proper posture while standing, OT works on proper hand placement during transfers and assists in proper posture while standing. Need for two skilled clinicians due to quick fatigue/low activity tolerance as well as coordinating UE & LE for transfers and standing. [id number]: Pt is given written HEP for Supine & Seated EX. EVENT PROMOTIONS COORDINATOR reviews EX. Pt resting in recliner at end of tx with all needs met, call light in hand. Assessment Current Status: Good Progress Pt fatigues quickly and needs frequent rest breaks. PT Short Term Goals Short Term Goals Time Frame: Feb 10, 2021 Roll Left & Right: 4 Sit to lyin Lying to sitting on side of be: 4 Sit to stand: 4 Chair/yhv-hb-uwaux transfer: 4 Toilet transfer: 4 Car transfer: 3 Walk 10 feet: 4 Walk 50 feet with two turns: 4 PT Skilled Nursing Goals Dramatic Arts Historian Goals PT Dramatic Arts Historian Goals Time Frame: Feb 17, 2021 Roll Left & Right (QC): 6 Sit to Lying (QC): 6 Lying-Sitting on Side/Bed(QC): 6 Sit to Stand (QC): 6 Chair/Jco-nt-Uspxu Xfer(QC): 6 Toilet Transfer (QC): 5 Car Transfer (QC): 5 Does the Patient Walk: Yes Walk 10 feet (QC): 5 Walk 50ft with 2 Turns (QC): 5 Walk 150 ft (QC): 5 Walking 10ft on Uneven Surface: 5 1 Step (curb) (QC): 5 4 Steps (QC): 5 12 Steps (QC): 88 Picking up an Object (QC): 88 Wheel 50 feet with 2 turns (QC: 9 Wheel 150 feet: 9 PT Plan Problem List Problem List: Activity Tolerance, Functional Strength Treatment/Plan Treatment Plan: Continue Plan of Care Treatment Plan: Bed Mobility, Functional Activity Tamiko, Functional Strength, Group Therapy, Gait, Safety, Therapeutic Exercise, Transfers Treatment Duration: Feb 17, 2021 Frequency: 11 times per week Estimated Hrs Per Day: 1.5 hours per day Patient and/or Family Agrees t: Yes Safety Risks/Education Patient Education: Gait Training, Transfer Techniques, Correct Positioning Teaching Recipient: Patient Teaching Methods: Discussion Response to Teaching: Verbalize Understanding Time/GCodes Time In: 1015 Time Out: 1115 Total Billed Treatment Time: 60 Total Billed Treatment Co-treat w/OT 15m for ([id number]) 1, FA (20m), GT x2 (25m) & EX (15m) [id number]: 1, EX (15m) KELSEY MULLINS EVENT PROMOTIONS COORDINATOR Feb 09, 2021 12:03
--- NOTE | 2021-02-09 14:21 | Occupational Ther Daily Note ---
OT Current Status-Daily Note Subjective Pt. states that in stance, her groin "hurts." Pt. does not indicate a pain level to this OT, but has had pain medication. Multiple rest breaks given. Mental Status/Objective Patient Orientation: Person, Place, Time, Situation ADL-Treatment Therapy Code Descriptions/Definitions Functional [place] Measure: 0=Not Assessed/NA 4=Minimal Assistance 1=Total Assistance 5=Supervision or Setup 2=Maximal Assistance 6=Modified [place] 3=Moderate Assistance 7=Complete IndependenceSCALE: Activities may be completed with or without assistive devices. 8-Oricgqrrga-rywqrkd completes the activity by him/herself with no assistance from a helper. 5-Set-up or Clean-up Assistance-helper sets up or cleans up; patient completes activity. [place] assists only prior to or following the activity. 4-Supervision or Touching Assistance-helper provides verbal cues and/or touching/steadying and/or contact guard assistance as patient completes activity. Assistance may be provided throughout the activity or intermittently. 3-Partial/Moderate Assistance-helper does LESS THAN HALF the effort. [place] lifts, holds or supports trunk or limbs, but provides less than half the effort. 2-Substantial/Maximal Assistance-helper does MORE THAN HALF the effort. [place] lifts or holds trunk or limbs and provides more than half the effort. 2-Hwqfybkjj-xnbyiy does ALL the effort. Patient does none of the effort to complete the activity. Or, the assistance of 2 or more helpers is required for the patient to complete the activity. If activity was not attempted, code reason: 7-Patient Refused. 9-Not Applicable-not attempted and the patient did not perform the activity before the current illness, exacerbation or injury. 10-Not Attempted due to Environmental Limitations-(lack of equipment, weather restraints, etc.). 88-Not Attempted due to Medical Conditions or Safety Concerns. Eating (QC): 5 Shower/Bathe Self (QC): 3 (Mod assist overall. Pt. requires assistance in stance for balance while washing veronica area. Pt. also requires assistance to fully wash rear veronica area. Pt. able to wash all other parts, including feet with LH sponge.) Upper Body Dressing (QC): 3 (Pt. requires mod assistance to thread gown over left arm and head due to increased padding put onto left arm cast for comfort. Pt. unable to pull on her own.) Lower Body Dressing (QC): 3 (Min assist to thread brief over hips in stance. Pt. donned/doffed brief with AE with cues.) On/Off Footwear: 4 (SBA and cues to doff/don slipper socks with AE.) Other Treatment Pt. participated in partial co-treatment with PT/OT due to need of skilled assist x 2 for decreased balance/mobility while working on ADL skills. Stood in parallel bars with mod assist for sit-stand. PT faciliated transfer. OT placed mirror behind PT so that pt. could see self and stand taller. Pt. engaged in balance activity while letting go of bar and weight shifting on feet. Practiced reaching back for smooth, safe, and controlled sit. PT left and OT took pt. to room. Worked on ADL skills with use of adaptive equipment. Pt. unable to shower due to water proof dressing on hip. OT washed hair with shampoo cap. After ADLs and several brief rest breaks, pt. stood at walker with mod assist, and ambulated to reclining chair in room. All needs met. Education OT Patient Education: Correct positioning, Modified ADL techniques, Progress toward Goal/Update tx plan, Purpose of tx/functional activities, Reviewed precautions, Rehab process, Transfer techniques Teaching Recipient: Patient Teaching Methods: Demonstration, Discussion Response to Teaching: Verbalize Understanding, Return Demonstration OT Short Term Goals Short Term Goals Eatin Oral hygiene: 6 Toileting hygiene: 4 Shower/bathe self: 4 Upper body dressin Lower body dressin Putting on/taking off footwear: 5 OT Snf Goals Snf Goals Time Frame: Feb 17, 2021 Eating (QC): 6 Oral Hygiene (QC): 6 Toileting Hygiene (QC): 6 Shower/Bathe Self (QC): 6 Upper Body Dressing (QC): 6 Lower Body Dressing (QC): 6 On/Off Footwear (QC): 6 Additional Goals: 1-Demonstrate ADL Tasks, 2-Verbalize Understanding, 3- ImproveStrength/Tamiko 1=Demonstrate adherence to instructed precautions during ADL tasks. 2=Patient will verbalize/demonstrate understanding of assistive devices/modifications for ADL. 3=Patient will improve strength/tolerance for activity to enable patient to perform ADL's. OT Education/Plan Problem List/Assessment Assessment: Decreased Activ Tolerance, Decreased UE Strength, Impaired I ADL's, Impaired Self-Care Skills Discharge Recommendations Plan/Recommendations: Continue POC Therapy Discharge Recommendati: Home & Family, Post Acute OT Equpiment Recommendations-D/C: Hip Kit Treatment Plan/Plan of Care Treatment,Training & Education: Yes Patient would benefit from OT for education, treatment and training to promote independence in ADL's, mobility, safety and/or upper extremity function for ADL's. Plan of Care: ADL Retraining, Caregiver Training, Functional Mobility, Group Exercise/Act as Ind, Orthotic Fitting/Training, UE Funct Exercise/Act, W/C Management Training Treatment Duration: Feb 17, 2021 Frequency: At least 5 of 7 days/Wk (IRF) Estimated Hrs Per Day: 1.5 hours per day Agreement: Yes Rehab Potential: Good Time/GCodes Start Time: 11:00 Stop Time: 12:15 Total Time Billed (hr/min): 75 Billed Treatment Time 1, FA x 15minutes, ADL x 60minutes ERIKA ZELAYA OT Feb 09, 2021 14:21
[2021-02-09 20:00] VITALS: BP 142/63
[2021-02-09] MEDS: SIMvastatin 10 MG (ZOCOR) TAB PO SCH (20:08)
[2021-02-09] MEDS: MIRTAZAPINE 15 MG (REMERON) TAB PO SCH (20:08)
[2021-02-10] MEDS: inSUlin ASPART (NovoLOG) 1 UNIT/0.01 ML (CHARGE PER UNIT) SC SCH ×4 (05:52→21:50)
[2021-02-10] MEDS: VENlafaxine XR 75 MG (EFFEXOR XR) CAP PO SCH (06:05)
[2021-02-10] MEDS: glipiZIDE XL 5 MG (GLUCOTROL XL) TAB PO SCH (06:05)
--- NOTE | 2021-02-10 06:19 | PM&R Progress Note ---
Subjective HPI/CC On Admission Date Seen by Provider: Feb 10, 2021 Time Seen by Provider: 10:00 Subjective/Events-last exam 02/10/2021: Pt doing really well Stopping the Flomax and Urocholine Daughter visited today Sleeps a lot at home 02/09/2021: Pt in a good mood Tolerating therapy Bowels are moving Bladder scan is showing minimal residual Urecholine down to once a day 02/08/2021: Pt doing pretty well Bowels moved yesterday Incontinence is chronic No pain is reported 02/07/2021: Pt doing pretty well No pain reported Voiding well Incontinent Her bottom is red but will monitor that Bowels moved yesterday 02/06/2021: Pt doing pretty well Participating in therapy Will DC the catheter and see if she can void on her own Urecholine and Flomax ordered Hgb 9.6 Bowels moved yesterday Sugars are okay 02/05/2021: Patient did not sleep well Did not call her family in the medical night like last night Left ankle skin graft has a bit of blisters so will monitor that closely Blood pressure was very elevated at 180/74 We will discontinue the catheter tomorrow Urinary medication given since she has retention after Guerrero catheters in the past Not moving too good overall 02/04/2021: This visit is via video chat due to Covid related restriction for this provider Patient in a really good mood today Bowels moved today Oxycodone doing pretty well for the left elbow pain Confused at night and called all of her family members at 0400 hrs. and her came to check on her at 4:00 this morning She is aware that she was confused and feels embarrassed about it Slums score is 25/30 so she definitely had some confusion with delirium and cognitive decline status We will monitor closely Review of Systems General: Malaise Objective Exam Vital Signs Vital Signs Date Time Temp Pulse Resp B/P (MAP) Pulse Ox O2 Delivery O2 Flow Rate FiO2 02/10/21 07:49 36.5 92 16 142/82 (102) 94 Room Air 02/07/21 06:41 0.00 Capillary Refill : General Appearance: No Apparent Distress, WD/WN, Chronically ill, Obese HEENT: PERRL/EOMI, Normal ENT Inspection, Pharynx Normal, Moist Mucous Membranes; No Scleral Icterus (L), No Scleral Icterus (R) Neck: Normal Inspection, Supple Respiratory: Chest Non Tender, Lungs Clear, Normal Breath Sounds, No Accessory Muscle Use, No Respiratory Distress Cardiovascular: Regular Rate, Rhythm, No Edema, No Gallop, No JVD, No Murmur Gastrointestinal: Normal Bowel Sounds, Non Tender, Soft Extremity: No Calf Tenderness, No Pedal Edema Neurologic/Psychiatric: Alert, Oriented x3, Normal Mood/Affect, variety performer II-XII Norm as Tested, Abnormal Gait, Depressed Affect, Motor Weakness (Left arm and left leg) Skin: Normal Color, Warm/Dry Results/Procedures Lab Patient resulted labs reviewed. Imaging: Reviewed Imaging Report FIM Transfers Therapy Code Descriptions/Definitions Functional [place] Measure: 0=Not Assessed/NA 4=Minimal Assistance 1=Total Assistance 5=Supervision or Setup 2=Maximal Assistance 6=Modified [place] 3=Moderate Assistance 7=Complete IndependenceSCALE: Activities may be completed with or without assistive devices. 7-Rpemakugus-rtvxcpe completes the activity by him/herself with no assistance from a helper. 5-Set-up or Clean-up Assistance-helper sets up or cleans up; patient completes activity. [place] assists only prior to or following the activity. 4-Supervision or Touching Assistance-helper provides verbal cues and/or touching/steadying and/or contact guard assistance as patient completes activity. Assistance may be provided throughout the activity or intermittently. 3-Partial/Moderate Assistance-helper does LESS THAN HALF the effort. [place] lifts, holds or supports trunk or limbs, but provides less than half the effort. 2-Substantial/Maximal Assistance-helper does MORE THAN HALF the effort. [place] lifts or holds trunk or limbs and provides more than half the effort. 8-Hekzbohgu-zwcnjz does ALL the effort. Patient does none of the effort to complete the activity. Or, the assistance of 2 or more helpers is required for the patient to complete the activity. If activity was not attempted, code reason: 7-Patient Refused. 9-Not Applicable-not attempted and the patient did not perform the activity before the current illness, exacerbation or injury. 10-Not Attempted due to Environmental Limitations-(lack of equipment, weather restraints, etc.). 88-Not Attempted due to Medical Conditions or Safety Concerns. Roll Left to Right (QC): 1 Sit to Lying (QC): 1 Sit to Stand (QC): 3 Chair/Sfk-fx-Ezvvr Xfer(QC): 1 Car Transfer (QC): 88 Gait Training Does the Patient Walk?: Yes Distance: 25', 20' & 30' Walk 10 feet (QC): 4 Walk 50 ft with 2 Turns(QC): 4 Walk 150 ft (QC): 4 Walking 10ft/uneven surface-QC: 2 Gait Persons Needed: 1 Gait Assistive Device: FWW Wheelchair Training Does the Pt Use a Wheelchair?: Yes Wheel 50 ft with 2 turns (QC): 4 Wheel 150 ft (QC): 9 Type of Wheelchair: Manual Stair Training 1 Step (curb) (QC): 88 4 Steps (QC): 88 12 Steps (QC): 88 Balance Picking up an Object (QC): 88 ADL-Treatment Eating (QC): 5 Oral Hygiene (QC): 5 (Seated in chair in room.) Shower/Bathe Self (QC): 3 (Mod assist overall. Pt. requires assistance in stance for balance while washing veronica area. Pt. also requires assistance to fully wash rear veronica area. Pt. able to wash all other parts, including feet with LH sponge.) Upper Body Dressing (QC): 3 (Pt. requires mod assistance to thread gown over left arm and head due to increased padding put onto left arm cast for comfort. Pt. unable to pull on her own.) Lower Body Dressing (QC): 3 (Min assist to thread brief over hips in stance. Pt. donned/doffed brief with AE with cues.) On/Off Footwear (QC): 4 (SBA and cues to doff/don slipper socks with AE.) Toileting Hygiene (QC): 3 (Mod assist. Pt. requires assist to pull up/down brief, but is able to cleanse self after urinating.) Toilet Transfer (QC): 3 (Mod assist sit-stand, and min assist to transfer to/from toilet.) Assessment/Plan Assessment and Plan Assess & Plan/Chief Complaint Assessment: Left femoral neck fracture Left humerus fracture Diabetes mellitus moderate control with hemoglobin A1c 8.6 Hyperlipidemia Hypertension Cognitive deficit slums score is 25/30 Sundowning and nighttime confusion on 02/04/2021 Acute hypokalemia added supplement on admission Postoperative anemia hemoglobin 11 Postop constipation now resolved Urinary retention acute on chronic requiring Guerrero catheter Plan: Blood sugar control Pain control Bowel regimen Monitor confusion 02/05/2021: Continue pain control Urinary catheter plan 02/06/2021: Urology appreciated Aggressive rehab 02/07/2021: Close monitoring of glucose Monitor closely 02/08/2021: Continue aggressive treatment Pain control Monitor closely 02/09/2021: Decrease Urecholine Aggressive therapy Monitor sugars 02/10/2021: DC Urecholine and Flomax Monitor blood pressure and blood sugar (1) Fracture of femoral neck, left JEFF WASHBURN DO Feb 10, 2021 06:19
[2021-02-10 07:49] VITALS: BP 142/82
[2021-02-10] MEDS: DOCUSATE SODIUM 100 MG (COLACE) CAP PO SCH ×2 (08:17→21:51)
[2021-02-10] MEDS: amLODIPine 5 MG (NORVASC) TAB PO SCH (08:17)
[2021-02-10] MEDS: meTOprolol TARTRATE 25 MG (LOPRESSOR) TABLET PO SCH ×2 (08:17→21:51)
[2021-02-10] MEDS: SENNA W/DOCUSATE (SENOKOT S) TABLET PO SCH ×2 (08:17→21:51)
[2021-02-10] MEDS: LOSARTAN 100 MG (COZAAR) TABLET PO SCH (08:17)
[2021-02-10] MEDS: KCL 10 MEQ TAB (MICRO K) PO SCH ×2 (08:17→21:51)
[2021-02-10] MEDS: FAMOTIDINE 20 MG (PEPCID) TABLET PO SCH (08:17)
[2021-02-10] MEDS: inSUlin NPH (NovoLIN N) 1 UNIT/0.01 ML (CHARGE PER UNIT) SQ SCH ×2 (08:17→21:51)
[2021-02-10] MEDS: polyethylene glycoL POWDER 17 GM (MIRALAX) PACK PO SCH ×2 (08:17→22:04)
[2021-02-10] MEDS: TAMSULOSIN 0.4 MG (FLOMAX) CAP PO SCH (08:18)
--- NOTE | 2021-02-10 08:42 | Speech Therapy Daily Note ---
Speech Daily Progress Note Subjective Date Seen by Provider: Feb 10, 2021 Time Seen by Provider: 00:30 Patient was resting in her recliner following breakfast. Patient states she doesn't feel like she is getting as strong as she should be. Objective Patient completed sequencing tasks for daily chores at 90% with minimal cues. Assessment Assessment Current Status: Good Progress Treatment Plan Continue Plan of Care Speech Short Term Goals Short Term Goals Short Term Goals 1) Patient will complete safety awareness tasks at 90% or greater with minimal cues. 2) Patient will complete new information recall tasks at 90% or greater with minimal cues. Speech Press Room Supervisor Goals Press Room Supervisor Goals Patient will demonstrate the ability to communicate and complete daily tasks with minimal assist. Speech-Plan Patient/Family Goals Patient/Family Goals: Patient plans on returning to her home where she lives with her . Treatment Plan Speech Therapy Treatment Plan: Continue Plan of Care Treatment Duration: Feb 17, 2021 Frequency: 4 times per week Estimated Hrs Per Day: .5 hour per day Rehab Potential: Good Barriers to Learning: Patient's recent decline in health, mild cognitive deficits Pt/Family Agrees to Plan: Yes Safety Risks/Education Teaching Recipient: Patient Teaching Methods: Demonstration, Discussion Response to Teaching: Verbalize Understanding, Return Demonstration Education Topics Provided: Continued safety within her room and upon her return home Time Speech Therapy Time In: 08:30 Speech Therapy Time Out: 09:00 Total Billed Time: 30 Billed Treatment Time 1MAYELA BETHANIA ST Feb 10, 2021 08:42
[2021-02-10] MEDS ORDERED: BETHANECHOL 25 MG (URECHOLINE) TAB PO SCH (09:00)
--- NOTE | 2021-02-10 10:06 | Progress Note - Urology ---
Progress Note-Urology Progress Notes/Assess & Plan Progress/Assessment & Plan DOING WELL VALADEZ. DC ALL MEDS. SEE HER PRN Final Diagnosis RETENTION (RESOLVED) MARQUES FELDER MD Feb 10, 2021 10:06
--- NOTE | 2021-02-10 11:58 | Occupational Ther Daily Note ---
OT Current Status-Daily Note Subjective Pt alert, agrees to tx. States immense fatigue post PT session this morning. Pt desires sponge bath/ dressing. Mental Status/Objective Patient Orientation: Person, Place, Situation ADL-Treatment Therapy Code Descriptions/Definitions Functional [place] Measure: 0=Not Assessed/NA 4=Minimal Assistance 1=Total Assistance 5=Supervision or Setup 2=Maximal Assistance 6=Modified [place] 3=Moderate Assistance 7=Complete IndependenceSCALE: Activities may be completed with or without assistive devices. 3-Hlzqdnkfhu-dlevcev completes the activity by him/herself with no assistance from a helper. 5-Set-up or Clean-up Assistance-helper sets up or cleans up; patient completes activity. [place] assists only prior to or following the activity. 4-Supervision or Touching Assistance-helper provides verbal cues and/or touching/steadying and/or contact guard assistance as patient completes activity. Assistance may be provided throughout the activity or intermittently. 3-Partial/Moderate Assistance-helper does LESS THAN HALF the effort. [place] lif ts, holds or supports trunk or limbs, but provides less than half the effort. 2-Substantial/Maximal Assistance-helper does MORE THAN HALF the effort. [place] lifts or holds trunk or limbs and provides more than half the effort. 2-Ltzvlqmvd-gptaay does ALL the effort. Patient does none of the effort to complete the activity. Or, the assistance of 2 or more helpers is required for the patient to complete the activity. If activity was not attempted, code reason: 7-Patient Refused. 9-Not Applicable-not attempted and the patient did not perform the activity before the current illness, exacerbation or injury. 10-Not Attempted due to Environmental Limitations-(lack of equipment, weather restraints, etc.). 88-Not Attempted due to Medical Conditions or Safety Concerns. Eating (QC): 6 Oral Hygiene (QC): 7 Bathing Location: L Arm, R Arm, L Upper Leg, R Upper Leg, Chest, Abdomen Shower/Bathe Self (QC): 4 (SBA-CGA during all tasks. Completes sponge bath EOB, decreased core strength and requires intermittent rest breaks.) Upper Body Dressing (QC): 3 (mod A (dressing LUE and wrapping over back)) Lower Body Dressing (QC): 3 (mod A (assist threading and doffing from LLE), pt able ot complete RLE. Pt requires cues during dressing for L donning prior to R.[place] with assist and education of R prior to L doffing and use of dressing stick. However, unable to forward flex L hip for foot clearance and requires mod A here.Pt expresses will assist with this task at home if needed.) Toileting Hygiene (QC): 4 (SBA) Toilet Transfer (QC): 4 (SBA, use of walker) Other Treatment Pt bed mob (HOB elevation supine to EOB) with mod A for LLE and reaching EOB with hips. Pt completes UB sponge bath EOB with increased time and rest breaks, decreased core balance/ endurance. Pt sit to stand with CGA and ambulates with platform walker to chair, sits and complete LB washing/ dressing. Pt requires increased time for this, dressing LB 2x as first pair does not fit. 2nd trial with decreased cues. Pt desires toileting, SBA ambulation and transfer. Sit to stand CGA. Sits in chair, requires cues for LE/ UE positioning to bring bottom towards back of chair. Completes with increased cues/ time. Pt positioned to comfort and edema management of LUE. Pt denies needs, call light in reach, left in chair for lunch. Education OT Patient Education: Correct positioning, Energy conservation, Modified ADL techniques, Purpose of tx/functional activities, Safety issues, Use of adapted equipment Teaching Recipient: Patient Teaching Methods: Demonstration, Discussion Response to Teaching: Verbalize Understanding, Return Demonstration, Reinforcement Needed OT Short Term Goals Short Term Goals Eatin Oral hygiene: 6 Toileting hygiene: 4 Shower/bathe self: 4 Upper body dressin Lower body dressin Putting on/taking off footwear: 5 OT Auto Refinisher Goals Auto Refinisher Goals Time Frame: Feb 17, 2021 Eating (QC): 6 Oral Hygiene (QC): 6 Toileting Hygiene (QC): 6 Shower/Bathe Self (QC): 6 Upper Body Dressing (QC): 6 Lower Body Dressing (QC): 6 On/Off Footwear (QC): 6 Additional Goals: 1-Demonstrate ADL Tasks, 2-Verbalize Understanding, 3-Imp roveStrength/Tamiko 1=Demonstrate adherence to instructed precautions during ADL tasks. 2=Patient will verbalize/demonstrate understanding of assistive devices/modifications for ADL. 3=Patient will improve strength/tolerance for activity to enable patient to perform ADL's. OT Education/Plan Problem List/Assessment Assessment: Decreased Activ Tolerance, Decreased UE Strength, Dependent Transfers, Impaired Bed Mobility, Impaired Cognition, Impaired Funct Balance, I mpaired I ADL's, Impaired Self-Care Skills, Restricted Funct UE ROM Discharge Recommendations Plan/Recommendations: Continue POC Therapy Discharge Recommendati: Assisted Living, Post Acute OT Treatment Plan/Plan of Care Treatment,Training & Education: Yes Patient would benefit from OT for education, treatment and training to promote independence in ADL's, mobility, safety and/or upper extremity function for ADL's. Plan of Care: ADL Retraining, Caregiver Training, Functional Mobility, Group Exercise/Act as Ind, Orthotic Fitting/Training, UE Funct Exercise/Act, W/C Management Training Treatment Duration: Feb 17, 2021 Frequency: At least 5 of 7 days/Wk (IRF) Estimated Hrs Per Day: 1.5 hours per day Agreement: Yes Rehab Potential: Good Time/GCodes Start Time: 11:00 Stop Time: 12:00 Total Time Billed (hr/min): 60 Billed Treatment Time 1, ADL 4 (60) CLARI SCHNEIDER OTR Feb 10, 2021 11:58
--- NOTE | 2021-02-10 12:15 | Physical Therapy Daily Note ---
PT Daily Note-Current Subjective Pt reports she did not sleep well last night and is feeling tired. Transfers SCALE: Activities may be completed with or without assistive devices. 3-Spjlgcdyos-pfltjrd completes the activity by him/herself with no assistance from a helper. 5-Set-up or Clean-up Assistance-helper sets up or cleans up; patient completes activity. [place] assists only prior to or following the activity. 4-Supervision or Touching Assistance-helper provides verbal cues and/or touching/steadying and/or contact guard assistance as patient completes act ivity. Assistance may be provided throughout the activity or intermittently. 3-Partial/Moderate Assistance-helper does LESS THAN HALF the effort. [place] lifts, holds or supports trunk or limbs, but provides less than half the effort. 2-Substantial/Maximal Assistance-helper does MORE THAN HALF the effort. [place] lifts or holds trunk or limbs and provides more than half the effort. 5-Hpmcecjuq-ofngep does ALL the effort. Patient does none of the effort to complete the activity. Or, the assistance of 2 or more helpers is required for the patient to complete the activity. If activity was not attempted, code reason: 7-Patient Refused. 9-Not Applicable-not attempted and the patient did not perform the activity before the current illness, exacerbation or injury. 10-Not Attempted due to Environmental Limitations-(lack of equipment, weather restraints, etc.). 88-Not Attempted due to Medical Conditions or Safety Concerns. Roll Left & Right (QC): 4 Sit to Lying (QC): 4 Lying to Sitting/Side of Bed(Q: 4 Sit to Stand (QC): 4 Chair/Fzz-vm-Kzweq Xfer(QC): 4 Toilet Transfer (QC): 3 Weight Bearing Right Lower Extremity: Right Full Weight Bearing Left Lower Extremity: Left Weight Bearing/Tolerated Gait Training Gait Persons Needed: 1 Gait Assistive Device: FWW Gait training with platform walker. Ambulate 150ft x 4 trials with instruction for upright posture. Stair Training 4 Steps (QC): 3 Performed 4 steps with right hand on rail. Min Assist for decent. Exercises Supine Ex: LE Protocol Supine Reps: [address] Ex=Flex, Abd, Ext Standing Reps: 10 NuStep Minutes: 10 NuStep Workload: 5 Assessment Current Status: Good Progress Pt is progressing with mobility including increased gait distance and stability. She was able to climb stairs today and added NuStep animal trainer supervisor to exercise pr karely. PT Short Term Goals Short Term Goals Time Frame: Feb 10, 2021 Roll Left & Right: 4 Sit to lyin Lying to sitting on side of be: 4 Sit to stand: 4 Chair/jva-in-ckecp transfer: 4 Toilet transfer: 4 Car transfer: 3 Walk 10 feet: 4 Walk 50 feet with two turns: 4 PT Shelter Goals Recruiter Goals PT Recruiter Goals Time Frame: Feb 17, 2021 Roll Left & Right (QC): 6 Sit to Lying (QC): 6 Lying-Sitting on Side/Bed(QC): 6 Sit to Stand (QC): 6 Chair/Rlx-jk-Gnqiy Xfer(QC): 6 Toilet Transfer (QC): 5 Car Transfer (QC): 5 Does the Patient Walk: Yes Walk 10 feet (QC): 5 Walk 50ft with 2 Turns (QC): 5 Walk 150 ft (QC): 5 Walking 10ft on Uneven Surface: 5 1 Step (curb) (QC): 5 4 Steps (QC): 5 12 Steps (QC): 88 Picking up an Object (QC): 88 Wheel 50 feet with 2 turns (QC: 9 Wheel 150 feet: 9 PT Plan Treatment/Plan Treatment Plan: Continue Plan of Care Treatment Plan: Bed Mobility, Functional Activity Tamiko, Functional Strength, Group Therapy, Gait, Safety, Therapeutic Exercise, Transfers Treatment Duration: Feb 17, 2021 Frequency: 11 times per week Estimated Hrs Per Day: 1.5 hours per day Patient and/or Family Agrees t: Yes Time/GCodes Time In: 1000 Time Out: 1100 Total Billed Treatment Time: 60 Total Billed Treatment visit, gt 30 min, ex 30 min MORIS MCCRACKEN PT Feb 10, 2021 12:15
--- NOTE | 2021-02-10 14:41 | Therapy Group Daily Note ---
Therapy Daily Group Note Patient Education Topic Other List Below (memory, ARU description/expectations) Exercises LE Seated Exercise, UE Exercise Session Ratio (pt:therapist): 8:2 Goal of Session: Education on ARU Expectations, Memory Strategies, UE/LE Strengthing Goal Met for this Session: Yes Pt Benefit of Group: Contributions to Others, F/U Use of Strategies @Home, Increased Functional Safety, Increased Functional Strength, Improved Cognition, Recognition of Peers, Socialization Other/Notes Pt ambulated using FWW to [facility] for OT/PT group. Group consisted of introductions (name, place living, memory of historical event), socialization, ARU description/expectation, seated B UE/LE exercises and memory strategies/activity. Pt introduced self appropriately and actively listened to peers. Pt participated in B LE and R UE (L UE in cast) seated exercises and tolerated well. Pt acknowledged understanding of educational topics by giving own personal strategies and experiences. After therapy, pt lying in bed with call light/phone in reach. Start Time: 13:00 Stop Time: 14:00 Total Billed Treatment Time: 60 Total Billed Treatment 1-GRP KALIE MURRAY Feb 10, 2021 14:41
[2021-02-10 20:00] VITALS: BP 134/60
[2021-02-10] MEDS: SIMvastatin 10 MG (ZOCOR) TAB PO SCH (21:51)
[2021-02-10] MEDS: MIRTAZAPINE 15 MG (REMERON) TAB PO SCH (21:52)
[2021-02-11] MEDS: inSUlin ASPART (NovoLOG) 1 UNIT/0.01 ML (CHARGE PER UNIT) SC SCH ×4 (06:40→21:51)
[2021-02-11] MEDS: glipiZIDE XL 5 MG (GLUCOTROL XL) TAB PO SCH (07:04)
[2021-02-11] MEDS: VENlafaxine XR 75 MG (EFFEXOR XR) CAP PO SCH (07:04)
[2021-02-11 07:13] VITALS: BP 144/67
--- NOTE | 2021-02-11 07:37 | PM&R Progress Note ---
Subjective HPI/CC On Admission Date Seen by Provider: Feb 11, 2021 Time Seen by Provider: 07:00 Subjective/Events-last exam 02/11/2021: Pt doing pretty well No pain is reports Bowels moved today No major issues 02/10/2021: Pt doing really well Stopping the Flomax and Urocholine Daughter visited today Sleeps a lot at home 02/09/2021: Pt in a good mood Tolerating therapy Bowels are moving Bladder scan is showing minimal residual Urecholine down to once a day 02/08/2021: Pt doing pretty well Bowels moved yesterday Incontinence is chronic No pain is reported 02/07/2021: Pt doing pretty well No pain reported Voiding well Incontinent Her bottom is red but will monitor that Bowels moved yesterday 02/06/2021: Pt doing pretty well Participating in therapy Will DC the catheter and see if she can void on her own Urecholine and Flomax ordered Hgb 9.6 Bowels moved yesterday Sugars are okay 02/05/2021: Patient did not sleep well Did not call her family in the medical night like last night Left ankle skin graft has a bit of blisters so will monitor that closely Blood pressure was very elevated at 180/74 We will discontinue the catheter tomorrow Urinary medication given since she has retention after Guerrero catheters in the past Not moving too good overall 02/04/2021: This visit is via video chat due to Covid related restriction for this provider Patient in a really good mood today Bowels moved today Oxycodone doing pretty well for the left elbow pain Confused at night and called all of her family members at 0400 hrs. and her h usband came to check on her at 4:00 this morning She is aware that she was confused and feels embarrassed about it Slums score is 25/30 so she definitely had some confusion with delirium and cognitive decline status We will monitor closely Review of Systems General: Fatigue, Malaise Neurological: Weakness Objective Exam Vital Signs Vital Signs Date Time Temp Pulse Resp B/P (MAP) Pulse Ox O2 Delivery O2 Flow Rate FiO2 02/11/21 20:00 36.5 77 16 149/67 (94) 94 Room Air 02/07/21 06:41 0.00 Capillary Refill : General Appearance: No Apparent Distress, WD/WN, Chronically ill, Obese HEENT: PERRL/EOMI, Normal ENT Inspection, Pharynx Normal, Moist Mucous Membranes; No Scleral Icterus (L), No Scleral Icterus (R) Neck: Normal Inspection, Supple Respiratory: Chest Non Tender, Lungs Clear, Normal Breath Sounds, No Accessory Muscle Use, No Respiratory Distress Cardiovascular: Regular Rate, Rhythm, No Edema, No Gallop, No JVD, No Murmur Gastrointestinal: Normal Bowel Sounds, Non Tender, Soft Extremity: No Calf Tenderness, No Pedal Edema Neurologic/Psychiatric: Alert, Oriented x3, Normal Mood/Affect, 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 Imaging: Reviewed Imaging Report FIM Transfers Therapy Code Descriptions/Definitions Functional [place] Measure: 0=Not Assessed/NA 4=Minimal Assistance 1=Total Assistance 5=Supervision or Setup 2=Maximal Assistance 6=Modified [place] 3=Moderate Assistance 7=Complete IndependenceSCALE: Activities may be completed with or without assistive devices. 8-Tdqcjxvkhb-wosvpii completes the activity by him/herself with no assistance from a helper. 5-Set-up or Clean-up Assistance-helper sets up or cleans up; patient completes activity. [place] assists only prior to or following the activity. 4-Supervision or Touching Assistance-helper provides verbal cues and/or touching/steadying and/or contact guard assistance as patient completes activity. Assistance may be provided throughout the activity or intermittently. 3-Partial/Moderate Assistance-helper does LESS THAN HALF the effort. [place] lifts, holds or supports trunk or limbs, but provides less than half the effort. 2-Substantial/Maximal Assistance-helper does MORE THAN HALF the effort. [place] lifts or holds trunk or limbs and provides more than half the effort. 2-Faskqbpqm-acpqah does ALL the effort. Patient does none of the effort to complete the activity. Or, the assistance of 2 or more helpers is required for the patient to complete the activity. If activity was not attempted, code reason: 7-Patient Refused. 9-Not Applicable-not attempted and the patient did not perform the activity before the current illness, exacerbation or injury. 10-Not Attempted due to Environmental Limitations-(lack of equipment, weather restraints, etc.). 88-Not Attempted due to Medical Conditions or Safety Concerns. Roll Left to Right (QC): 4 Sit to Lying (QC): 4 Sit to Stand (QC): 4 Chair/Dht-kx-Ffizm Xfer(QC): 4 Car Transfer (QC): 88 Gait Training Does the Patient Walk?: Yes Distance: 25', 20' & 30' Walk 10 feet (QC): 4 Walk 50 ft with 2 Turns(QC): 4 Walk 150 ft (QC): 4 Walking 10ft/uneven surface-QC: 2 Gait Persons Needed: 1 Gait Assistive Device: FWW Wheelchair Training Does the Pt Use a Wheelchair?: Yes Wheel 50 ft with 2 turns (QC): 4 Wheel 150 ft (QC): 9 Type of Wheelchair: Manual Stair Training 1 Step (curb) (QC): 88 4 Steps (QC): 3 12 Steps (QC): 88 Balance Picking up an Object (QC): 88 ADL-Treatment Eating (QC): 6 Oral Hygiene (QC): 7 Bathing Location: L Arm, R Arm, L Upper Leg, R Upper Leg, Chest, Abdomen Shower/Bathe Self (QC): 4 (SBA-CGA during all tasks. Completes sponge bath EOB, decreased core strength and requires intermittent rest breaks.) Upper Body Dressing (QC): 3 (mod A (dressing LUE and wrapping over back)) Lower Body Dressing (QC): 3 (mod A (assist threading and doffing from LLE), pt able ot complete RLE. Pt requires cues during dressing for L donning prior to R.Leslie with assist and education of R prior to L doffing and use of dressing stick. However, unable to forward flex L hip for foot clearance and requires mod A here.Pt expresses will assist with this task at home if needed.) On/Off Footwear (QC): 4 (SBA and cues to doff/don slipper socks with AE.) Toileting Hygiene (QC): 4 (SBA) Toilet Transfer (QC): 4 (SBA, use of walker) Assessment/Plan Assessment and Plan Assess & Plan/Chief Complaint Assessment: Left femoral neck fracture Left humerus fracture Diabetes mellitus moderate control with hemoglobin A1c 8.6 Hyperlipidemia Hypertension Cognitive deficit slums score is 25/30 Sundowning and nighttime confusion on 02/04/2021 Acute hypokalemia added supplement on admission Postoperative anemia hemoglobin 11 Postop constipation now resolved Urinary retention acute on chronic requiring Guerrero catheter Plan: Blood sugar control Pain control Bowel regimen Monitor confusion 02/05/2021: Continue pain control Urinary catheter plan 02/06/2021: Urology appreciated Aggressive rehab 02/07/2021: Close monitoring of glucose Monitor closely 02/08/2021: Continue aggressive treatment Pain control Monitor closely 02/09/2021: Decrease Urecholine Aggressive therapy Monitor sugars 02/10/2021: DC Urecholine and Flomax Monitor blood pressure and blood sugar 02/11/2021: Transfers are improved Overall improved Monitor blood sugars (1) Fracture of femoral neck, left JEFF WASHBURN DO Feb 11, 2021 07:37
[2021-02-11] MEDS: KCL 10 MEQ TAB (MICRO K) PO SCH ×2 (10:46→21:51)
[2021-02-11] MEDS: inSUlin NPH (NovoLIN N) 1 UNIT/0.01 ML (CHARGE PER UNIT) SQ SCH ×2 (10:46→21:51)
[2021-02-11] MEDS: LOSARTAN 100 MG (COZAAR) TABLET PO SCH (10:46)
[2021-02-11] MEDS: polyethylene glycoL POWDER 17 GM (MIRALAX) PACK PO SCH ×2 (10:46→21:53)
[2021-02-11] MEDS: meTOprolol TARTRATE 25 MG (LOPRESSOR) TABLET PO SCH ×2 (10:46→21:50)
[2021-02-11] MEDS: FAMOTIDINE 20 MG (PEPCID) TABLET PO SCH (10:47)
[2021-02-11] MEDS: SENNA W/DOCUSATE (SENOKOT S) TABLET PO SCH ×2 (10:47→21:50)
[2021-02-11] MEDS: DOCUSATE SODIUM 100 MG (COLACE) CAP PO SCH ×2 (10:47→21:51)
[2021-02-11] MEDS: amLODIPine 5 MG (NORVASC) TAB PO SCH (10:47)
--- NOTE | 2021-02-11 13:14 | Physical Therapy Daily Note ---
PT Daily Note-Current Subjective Patient lying supine in bed upon PT arrival, agreeable to treatment. Currently rates pain at 0/10 at rest. Mental Status Patient Orientation: Person, Place, Time, Situation Transfers SCALE: Activities may be completed with or without assistive devices. 2-Tgpnzidukk-sbinsem completes the activity by him/herself with no assistance from a helper. 5-Set-up or Clean-up Assistance-helper sets up or cleans up; patient completes activity. [place] assists only prior to or following the activity. 4-Supervision or Touching Assistance-helper provides verbal cues and/or touching/steadying and/or contact guard assistance as patient completes activity. Assistance may be provided throughout the activity or intermittently. 3-Partial/Moderate Assistance-helper does LESS THAN HALF the effort. [place] lifts, holds or supports trunk or limbs, but provides less than half the effort. 2-Substantial/Maximal Assistance-helper does MORE THAN HALF the effort. [place] lifts or holds trunk or limbs and provides more than half the effort. 0-Qklsoojhp-mhnyqc does ALL the effort. Patient does none of the effort to complete the activity. Or, the assistance of 2 or more helpers is required for the patient to complete the activity. If activity was not attempted, code reason: 7-Patient Refused. 9-Not Applicable-not attempted and the patient did not perform the activity before the current illness, exacerbation or injury. 10-Not Attempted due to Environmental Limitations-(lack of equipment, weather restraints, etc.). 88-Not Attempted due to Medical Conditions or Safety Concerns. Roll Left & Right (QC): 3 Sit to Lying (QC): 3 Lying to Sitting/Side of Bed(Q: 3 Sit to Stand (QC): 4 Chair/Rwu-ea-Fktwp Xfer(QC): 4 Weight Bearing Right Lower Extremity: Right Full Weight Bearing Left Lower Extremity: Left Weight Bearing/Tolerated Gait Training Does the Patient Walk?: Yes Distance: 200 feet Walk 10 feet (QC): 4 Walk 50 ft with 2 Turns(QC): 4 Walk 150 ft (QC): 4 Gait Persons Needed: 1 Gait Assistive Device: Walker Platform Wheelchair Training Does the Pt Use a Wheelchair?: No Assessment Current Status: Good Progress Patient lying supine in bed upon PT arrival, agreeable to treatment. Patient performs all observed bed mobility and transfers with min A. Patient ambulates 200 feet with platform FWW with min A and verbal cues for safety, progression, conservation of energy. Patient in bed per her request post treatment with all needs met, nursing notified, call light in reach. PT Short Term Goals Short Term Goals Time Frame: Feb 10, 2021 Roll Left & Right: 4 Sit to lyin Lying to sitting on side of be: 4 Sit to stand: 4 Chair/yff-or-oxgkg transfer: 4 Toilet transfer: 4 Car transfer: 3 Walk 10 feet: 4 Walk 50 feet with two turns: 4 PT Assisted Goals Pediatric Physical Therapist Goals PT Assisted Goals Time Frame: Feb 17, 2021 Roll Left & Right (QC): 6 Sit to Lying (QC): 6 Lying-Sitting on Side/Bed(QC): 6 Sit to Stand (QC): 6 Chair/Mbh-mo-Pkbvk Xfer(QC): 6 Toilet Transfer (QC): 5 Car Transfer (QC): 5 Does the Patient Walk: Yes Walk 10 feet (QC): 5 Walk 50ft with 2 Turns (QC): 5 Walk 150 ft (QC): 5 Walking 10ft on Uneven Surface: 5 1 Step (curb) (QC): 5 4 Steps (QC): 5 12 Steps (QC): 88 Picking up an Object (QC): 88 Wheel 50 feet with 2 turns (QC: 9 Wheel 150 feet: 9 PT Plan Treatment/Plan Treatment Plan: Continue Plan of Care Treatment Plan: Bed Mobility, Functional Activity Tamiko, Functional Strength, Group Therapy, Gait, Safety, Therapeutic Exercise, Transfers Treatment Duration: Feb 17, 2021 Frequency: 11 times per week Estimated Hrs Per Day: 1.5 hours per day Patient and/or Family Agrees t: Yes Time/GCodes Time In: 840 Time Out: 905 Total Billed Treatment Time: 25 Total Billed Treatment Visit, FA, Gait ELIDA BENSON PT Feb 11, 2021 13:14
[2021-02-11 20:00] VITALS: BP 149/67
[2021-02-11] MEDS: SIMvastatin 10 MG (ZOCOR) TAB PO SCH (21:50)
[2021-02-11] MEDS: MIRTAZAPINE 15 MG (REMERON) TAB PO SCH (21:51)
[2021-02-12] MEDS: inSUlin ASPART (NovoLOG) 1 UNIT/0.01 ML (CHARGE PER UNIT) SC SCH ×4 (06:21→21:32)
[2021-02-12] MEDS: VENlafaxine XR 75 MG (EFFEXOR XR) CAP PO SCH (06:22)
[2021-02-12] MEDS: glipiZIDE XL 5 MG (GLUCOTROL XL) TAB PO SCH (06:22)
--- NOTE | 2021-02-12 06:57 | PM&R Progress Note ---
Subjective HPI/CC On Admission Date Seen by Provider: Feb 12, 2021 Time Seen by Provider: 13:00 Subjective/Events-last exam 02/12/2021: Patient doing really well Slept in a bit today at the bedside On a bed and chair alarm due to impulsiveness Incentive spirometer is being used independently Having some soft stools Walk pretty well today without a pain pill 02/11/2021: Pt doing pretty well No pain is reports Bowels moved today No major issues 02/10/2021: Pt doing really well Stopping the Flomax and Urocholine Daughter visited today Sleeps a lot at home 02/09/2021: Pt in a good mood Tolerating therapy Bowels are moving Bladder scan is showing minimal residual Urecholine down to once a day 02/08/2021: Pt doing pretty well Bowels moved yesterday Incontinence is chronic No pain is reported 02/07/2021: Pt doing pretty well No pain reported Voiding well Incontinent Her bottom is red but will monitor that Bowels moved yesterday 02/06/2021: Pt doing pretty well Participating in therapy Will DC the catheter and see if she can void on her own Urecholine and Flomax ordered Hgb 9.6 Bowels moved yesterday Sugars are okay 02/05/2021: Patient did not sleep well Did not call her family in the medical night like last night Left ankle skin graft has a bit of blisters so will monitor that closely Blood pressure was very elevated at 180/74 We will discontinue the catheter tomorrow Urinary medication given since she has retention after Guerreor catheters in the past Not moving too good overall 02/04/2021: This visit is via video chat due to Covid related restriction for this provider Patient in a really good mood today Bowels moved today Oxycodone doing pretty well for the left elbow pain Confused at night and called all of her family members at 0400 hrs. and her came to check on her at 4:00 this morning She is aware that she was confused and feels embarrassed about it Slums score is 25/30 so she definitely had some confusion with delirium and cognitive decline status We will monitor closely Review of Systems General: Fatigue, Malaise Neurological: Weakness Objective Exam Vital Signs Vital Signs Date Time Temp Pulse Resp B/P (MAP) Pulse Ox O2 Delivery O2 Flow Rate FiO2 02/12/21 20:00 36.6 82 16 116/59 (78 93 Room Air 02/07/21 06:41 0.00 Capillary Refill : General Appearance: No Apparent Distress, WD/WN, Chronically ill, Obese HEENT: PERRL/EOMI, Normal ENT Inspection, Pharynx Normal, Moist Mucous Membranes; No Scleral Icterus (L), No Scleral Icterus (R) Neck: Normal Inspection, Supple Respiratory: Chest Non Tender, Lungs Clear, Normal Breath Sounds, No Accessory Muscle Use, No Respiratory Distress Cardiovascular: Regular Rate, Rhythm, No Edema, No Gallop, No JVD, No Murmur Gastrointestinal: Normal Bowel Sounds, Non Tender, Soft Extremity: No Calf Tenderness, No Pedal Edema Neurologic/Psychiatric: Alert, Oriented x3, Normal Mood/Affect, content strategist II-XII Norm as Tested, Abnormal Gait, Depressed Affect, Motor Weakness (Left arm and left leg) Skin: Normal Color, Warm/Dry Results/Procedures Lab Patient resulted labs reviewed. Imaging: Reviewed Imaging Report FIM Transfers Therapy Code Descriptions/Definitions Functional [place] Measure: 0=Not Assessed/NA 4=Minimal Assistance 1=Total Assistance 5=Supervision or Setup 2=Maximal Assistance 6=Modified [place] 3=Moderate Assistance 7=Complete IndependenceSCALE: Activities may be completed with or without assistive devices. 4-Jrbilhijnu-dkbctaw completes the activity by him/herself with no assistance from a helper. 5-Set-up or Clean-up Assistance-helper sets up or cleans up; patient completes activity. [place] assists only prior to or following the activity. 4-Supervision or Touching Assistance-helper provides verbal cues and/or touching/steadying and/or contact guard assistance as patient completes activity. Assistance may be provided throughout the activity or intermittently. 3-Partial/Moderate Assistance-helper does LESS THAN HALF the effort. [place] lifts, holds or supports trunk or limbs, but provides less than half the effort. 2-Substantial/Maximal Assistance-helper does MORE THAN HALF the effort. [place] lifts or holds trunk or limbs and provides more than half the effort. 6-Wlscfvwxl-dfhlqx does ALL the effort. Patient does none of the effort to complete the activity. Or, the assistance of 2 or more helpers is required for the patient to complete the activity. If activity was not attempted, code reason: 7-Patient Refused. 9-Not Applicable-not attempted and the patient did not perform the activity before the current illness, exacerbation or injury. 10-Not Attempted due to Environmental Limitations-(lack of equipment, weather restraints, etc.). 88-Not Attempted due to Medical Conditions or Safety Concerns. Roll Left to Right (QC): 3 Sit to Lying (QC): 3 Sit to Stand (QC): 4 Chair/Bcm-id-Cwhkt Xfer(QC): 4 Car Transfer (QC): 88 Gait Training Does the Patient Walk?: Yes Distance: 200 feet Walk 10 feet (QC): 4 Walk 50 ft with 2 Turns(QC): 4 Walk 150 ft (QC): 4 Walking 10ft/uneven surface-QC: 2 Gait Persons Needed: 1 Gait Assistive Device: Walker Platform Wheelchair Training Does the Pt Use a Wheelchair?: No Wheel 50 ft with 2 turns (QC): 4 Wheel 150 ft (QC): 9 Type of Wheelchair: Manual Stair Training 1 Step (curb) (QC): 88 4 Steps (QC): 3 12 Steps (QC): 88 Balance Picking up an Object (QC): 88 ADL-Treatment Eating (QC): 6 Oral Hygiene (QC): 7 Bathing Location: L Arm, R Arm, L Upper Leg, R Upper Leg, Chest, Abdomen Shower/Bathe Self (QC): 4 (SBA-CGA during all tasks. Completes sponge bath EOB, decreased core strength and requires intermittent rest breaks.) Upper Body Dressing (QC): 3 (mod A (dressing LUE and wrapping over back)) Lower Body Dressing (QC): 3 (mod A (assist threading and doffing from LLE), pt able ot complete RLE. Pt requires cues during dressing for L donning prior to R.[place] with assist and education of R prior to L doffing and use of dressing stick. However, unable to forward flex L hip for foot clearance and requires mod A here.Pt expresses will assist with this task at home if needed.) On/Off Footwear (QC): 4 (SBA and cues to doff/don slipper socks with AE.) Toileting Hygiene (QC): 4 (SBA) Toilet Transfer (QC): 4 (SBA, use of walker) Assessment/Plan Assessment and Plan Assess & Plan/Chief Complaint Assessment: Left femoral neck fracture Left humerus fracture Diabetes mellitus moderate control with hemoglobin A1c 8.6 Hyperlipidemia Hypertension Cognitive deficit slums score is 25/30 Sundowning and nighttime confusion on 02/04/2021 Acute hypokalemia added supplement on admission Postoperative anemia hemoglobin 11 Postop constipation now resolved Urinary retention acute on chronic requiring Guerrero catheter Plan: Blood sugar control Pain control Bowel regimen Monitor confusion 02/05/2021: Continue pain control Urinary catheter plan 02/06/2021: Urology appreciated Aggressive rehab 02/07/2021: Close monitoring of glucose Monitor closely 02/08/2021: Continue aggressive treatment Pain control Monitor closely 02/09/2021: Decrease Urecholine Aggressive therapy Monitor sugars 02/10/2021: DC Urecholine and Flomax Monitor blood pressure and blood sugar 02/11/2021: Transfers are improved Overall improved Monitor blood sugars 02/12/2021: Improved status Monitor closely Sugars and blood pressures reviewed (1) Fracture of femoral neck, left JEFF WASHBURN DO Feb 12, 2021 06:57
[2021-02-12] MEDS: FAMOTIDINE 20 MG (PEPCID) TABLET PO SCH (10:37)
[2021-02-12] MEDS: amLODIPine 5 MG (NORVASC) TAB PO SCH (10:38)
[2021-02-12] MEDS: KCL 10 MEQ TAB (MICRO K) PO SCH ×2 (10:38→21:28)
[2021-02-12] MEDS: LOSARTAN 100 MG (COZAAR) TABLET PO SCH (10:38)
[2021-02-12] MEDS: meTOprolol TARTRATE 25 MG (LOPRESSOR) TABLET PO SCH ×2 (10:39→21:28)
[2021-02-12] MEDS: DOCUSATE SODIUM 100 MG (COLACE) CAP PO SCH ×2 (10:40→21:28)
[2021-02-12] MEDS: polyethylene glycoL POWDER 17 GM (MIRALAX) PACK PO SCH ×2 (10:40→21:33)
[2021-02-12] MEDS: SENNA W/DOCUSATE (SENOKOT S) TABLET PO SCH ×2 (10:40→21:28)
[2021-02-12] MEDS: inSUlin NPH (NovoLIN N) 1 UNIT/0.01 ML (CHARGE PER UNIT) SQ SCH ×2 (10:41→21:28)
[2021-02-12 20:00] VITALS: BP 116/59
[2021-02-12] MEDS: MIRTAZAPINE 15 MG (REMERON) TAB PO SCH (21:28)
[2021-02-12] MEDS: SIMvastatin 10 MG (ZOCOR) TAB PO SCH (21:28)
[2021-02-13 06:21] LABS: BASOPHILS # (AUTO) 0.1 10^3/uL (0.0-0.1); BASOPHILS % (AUTO) 1 % (0-10); EOSINOPHILS # (AUTO) 0.4 10^3/uL (0.0-0.3); EOSINOPHILS % (AUTO) 4 % (0-10); HEMATOCRIT 35 % (35-52); HEMOGLOBIN 11.2 g/dL (11.5-16.0); LYMPHOCYTES # (AUTO) 2.9 10^3/uL (1.0-4.0); LYMPHOCYTES % (AUTO) 30 % (12-44); MEAN CORPUSCULAR HEMOGLOBIN 29 pg (25-34); MEAN CORPUSCULAR HGB CONC 32 g/dL (32-36); MEAN CORPUSCULAR VOLUME 90 fL (80-99); MEAN PLATELET VOLUME 10.7 fL (9.0-12.2); MONOCYTES # (AUTO) 0.6 10^3/uL (0.0-1.0); MONOCYTES % (AUTO) 6 % (0-12); NEUTROPHILS # (AUTO) 5.8 10^3/uL (1.8-7.8); NEUTROPHILS % (AUTO) 59 % (42-75); PLATELET COUNT 372 10^3/uL (130-400); WHITE BLOOD COUNT 9.9 10^3/uL (4.3-11.0)
--- NOTE | 2021-02-13 06:22 | PM&R Progress Note ---
Subjective HPI/CC On Admission Date Seen by Provider: Feb 13, 2021 Time Seen by Provider: 11:30 Subjective/Events-last exam 02/13/2021: Pt having improved confusion Naps in between therapy and that works for her Hgb 11.7 Overall doing very well 02/12/2021: Patient doing really well Slept in a bit today at the bedside On a bed and chair alarm due to impulsiveness Incentive spirometer is being used independently Having some soft stools Walk pretty well today without a pain pill 02/11/2021: Pt doing pretty well No pain is reports Bowels moved today No major issues 02/10/2021: Pt doing really well Stopping the Flomax and Urocholine Daughter visited today Sleeps a lot at home 02/09/2021: Pt in a good mood Tolerating therapy Bowels are moving Bladder scan is showing minimal residual Urecholine down to once a day 02/08/2021: Pt doing pretty well Bowels moved yesterday Incontinence is chronic No pain is reported 02/07/2021: Pt doing pretty well No pain reported Voiding well Incontinent Her bottom is red but will monitor that Bowels moved yesterday 02/06/2021: Pt doing pretty well Participating in therapy Will DC the catheter and see if she can void on her own Urecholine and Flomax ordered Hgb 9.6 Bowels moved yesterday Sugars are okay 02/05/2021: Patient did not sleep well Did not call her family in the medical night like last night Left ankle skin graft has a bit of blisters so will monitor that closely Blood pressure was very elevated at 180/74 We will discontinue the catheter tomorrow Urinary medication given since she has retention after Guerrero catheters in the past Not moving too good overall 02/04/2021: This visit is via video chat due to Covid related restriction for this provider Patient in a really good mood today Bowels moved today Oxycodone doing pretty well for the left elbow pain Confused at night and called all of her family members at 0400 hrs. and her came to check on her at 4:00 this morning She is aware that she was confused and feels embarrassed about it Slums score is 25/30 so she definitely had some confusion with delirium and cognitive decline status We will monitor closely Review of Systems General: Fatigue, Malaise Musculoskeletal: arm pain, leg pain Neurological: Weakness Objective Exam Vital Signs Vital Signs Date Time Temp Pulse Resp B/P (MAP) Pulse Ox O2 Delivery O2 Flow Rate FiO2 02/13/21 20:00 36.0 84 20 138/61 (86) 92 Room Air Capillary Refill : General Appearance: No Apparent Distress, WD/WN, Chronically ill, Obese HEENT: PERRL/EOMI, Normal ENT Inspection, Pharynx Normal, Moist Mucous Membranes; No Scleral Icterus (L), No Scleral Icterus (R) Neck: Normal Inspection, Supple Respiratory: Chest Non Tender, Lungs Clear, Normal Breath Sounds, No Accessory Muscle Use, No Respiratory Distress Cardiovascular: Regular Rate, Rhythm, No Edema, No Gallop, No JVD, No Murmur Gastrointestinal: Normal Bowel Sounds, Non Tender, Soft Extremity: No Calf Tenderness, No Pedal Edema Neurologic/Psychiatric: Alert, Oriented x3, Normal Mood/Affect, central control room operator II-XII Norm as Tested, Abnormal Gait, Depressed Affect, Motor Weakness (Left arm and left leg) Skin: Normal Color, Warm/Dry Results/Procedures Lab Laboratory Tests 02/13/21 05:51 Patient resulted labs reviewed. Imaging: Reviewed Imaging Report FIM Transfers Therapy Code Descriptions/Definitions Functional [place] Measure: 0=Not Assessed/NA 4=Minimal Assistance 1=Total Assistance 5=Supervision or Setup 2=Maximal Assistance 6=Modified [place] 3=Moderate Assistance 7=Complete IndependenceSCALE: Activities may be completed with or without assistive devices. 5-Xobaxbyenr-rqffced completes the activity by him/herself with no assistance from a helper. 5-Set-up or Clean-up Assistance-helper sets up or cleans up; patient completes activity. [place] assists only prior to or following the activity. 4-Supervision or Touching Assistance-helper provides verbal cues and/or touching/steadying and/or contact guard assistance as patient completes activity. Assistance may be provided throughout the activity or intermittently. 3-Partial/Moderate Assistance-helper does LESS THAN HALF the effort. [place] l ifts, holds or supports trunk or limbs, but provides less than half the effort. 2-Substantial/Maximal Assistance-helper does MORE THAN HALF the effort. [place] lifts or holds trunk or limbs and provides more than half the effort. 0-Yokypxfed-lxdhua does ALL the effort. Patient does none of the effort to complete the activity. Or, the assistance of 2 or more helpers is required for the patient to complete the activity. If activity was not attempted, code reason: 7-Patient Refused. 9-Not Applicable-not attempted and the patient did not perform the activity before the current illness, exacerbation or injury. 10-Not Attempted due to Environmental Limitations-(lack of equipment, weather restraints, etc.). 88-Not Attempted due to Medical Conditions or Safety Concerns. Roll Left to Right (QC): 3 Sit to Lying (QC): 3 Sit to Stand (QC): 4 Chair/Qbr-oc-Xqhil Xfer(QC): 4 Car Transfer (QC): 88 Gait Training Does the Patient Walk?: Yes Distance: 200 feet Walk 10 feet (QC): 4 Walk 50 ft with 2 Turns(QC): 4 Walk 150 ft (QC): 4 Walking 10ft/uneven surface-QC: 2 Gait Persons Needed: 1 Gait Assistive Device: Walker Platform Wheelchair Training Does the Pt Use a Wheelchair?: No Wheel 50 ft with 2 turns (QC): 4 Wheel 150 ft (QC): 9 Type of Wheelchair: Manual Stair Training 1 Step (curb) (QC): 88 4 Steps (QC): 3 12 Steps (QC): 88 Balance Picking up an Object (QC): 88 ADL-Treatment Eating (QC): 6 Oral Hygiene (QC): 7 Bathing Location: L Arm, R Arm, L Upper Leg, R Upper Leg, Chest, Abdomen Shower/Bathe Self (QC): 4 (SBA-CGA during all tasks. Completes sponge bath EOB, decreased core strength and requires intermittent rest breaks.) Upper Body Dressing (QC): 3 (mod A (dressing LUE and wrapping over back)) Lower Body Dressing (QC): 3 (mod A (assist threading and doffing from LLE), pt able ot complete RLE. Pt requires cues during dressing for L donning prior to R.[place] with assist and education of R prior to L doffing and use of dressing stick. However, unable to forward flex L hip for foot clearance and requires mod A here.Pt expresses will assist with this task at home if needed.) On/Off Footwear (QC): 4 (SBA and cues to doff/don slipper socks with AE.) Toileting Hygiene (QC): 4 (SBA) Toilet Transfer (QC): 4 (SBA, use of walker) Assessment/Plan Assessment and Plan Assess & Plan/Chief Complaint Assessment: Left femoral neck fracture Left humerus fracture Diabetes mellitus moderate control with hemoglobin A1c 8.6 Hyperlipidemia Hypertension Cognitive deficit slums score is 25/30 Sundowning and nighttime confusion on 02/04/2021 Acute hypokalemia added supplement on admission Postoperative anemia hemoglobin 11 Postop constipation now resolved Urinary retention acute on chronic requiring Guerrero catheter Plan: Blood sugar control Pain control Bowel regimen Monitor confusion 02/05/2021: Continue pain control Urinary catheter plan 02/06/2021: Urology appreciated Aggressive rehab 02/07/2021: Close monitoring of glucose Monitor closely 02/08/2021: Continue aggressive treatment Pain control Monitor closely 02/09/2021: Decrease Urecholine Aggressive therapy Monitor sugars 02/10/2021: DC Urecholine and Flomax Monitor blood pressure and blood sugar 02/11/2021: Transfers are improved Overall improved Monitor blood sugars 02/12/2021: Improved status Monitor closely Sugars and blood pressures reviewed 02/13/21: Discharge plan for tomorrow Reviewed meds and labs Left Platform attachment for wheeled walker is required: Patient has a left hip fracture with TUTU and is using a wheeled walker. Patient has left olecranon fracture with sling and remains under a limited weight bear status. Patient requires the the platform for trunk support during ambulation since she is unable to use her left arm to bear weight. (1) Fracture of femoral neck, left JEFF WASHBURN DO Feb 13, 2021 06:22
[2021-02-13] MEDS: VENlafaxine XR 75 MG (EFFEXOR XR) CAP PO SCH (06:36)
[2021-02-13] MEDS: glipiZIDE XL 5 MG (GLUCOTROL XL) TAB PO SCH (06:36)
[2021-02-13 06:43] LABS: ALBUMIN 3.3 GM/DL (3.2-4.5); BILIRUBIN,TOTAL 0.5 MG/DL (0.1-1.0); CALCIUM 9.4 MG/DL (8.5-10.1); CREATININE SERUM 0.84 MG/DL (0.60-1.30)
[2021-02-13] MEDS: inSUlin ASPART (NovoLOG) 1 UNIT/0.01 ML (CHARGE PER UNIT) SC SCH ×4 (06:55→22:09)
[2021-02-13 07:48] VITALS: BP 158/70
[2021-02-13] MEDS: inSUlin NPH (NovoLIN N) 1 UNIT/0.01 ML (CHARGE PER UNIT) SQ SCH ×2 (08:01→22:03)
[2021-02-13] MEDS: meTOprolol TARTRATE 25 MG (LOPRESSOR) TABLET PO SCH ×2 (08:01→22:04)
[2021-02-13] MEDS: FAMOTIDINE 20 MG (PEPCID) TABLET PO SCH (08:01)
[2021-02-13] MEDS: amLODIPine 5 MG (NORVASC) TAB PO SCH (08:01)
[2021-02-13] MEDS: LOSARTAN 100 MG (COZAAR) TABLET PO SCH (08:01)
[2021-02-13] MEDS: KCL 10 MEQ TAB (MICRO K) PO SCH ×2 (08:01→22:03)
--- NOTE | 2021-02-13 08:48 | Speech Therapy Daily Note ---
Speech Daily Progress Note Subjective Date Seen by Provider: Feb 13, 2021 Time Seen by Provider: 00:30 Patient was resting in her bed states she is just wiped out. Objective Patient completed sequencing activities with 85% given 15% verbal/visual cues. Assessment Assessment Current Status: Good Progress Treatment Plan Continue Plan of Care Speech Short Term Goals Short Term Goals Short Term Goals 1) Patient will complete safety awareness tasks at 90% or greater with minimal cues. 2) Patient will complete new information recall tasks at 90% or greater with minimal cues. Speech Fdc Goals Electroplater Goals Patient will demonstrate the ability to communicate and complete daily tasks with minimal assist. Speech-Plan Patient/Family Goals Patient/Family Goals: Patient is scheduled to return to her home where she lives with her . He will assist her as needed with her daily needs. She is also scheduled for home health services. Treatment Plan Speech Therapy Treatment Plan: Continue Plan of Care Treatment Duration: Feb 17, 2021 Frequency: 4 times per week Estimated Hrs Per Day: .5 hour per day Rehab Potential: Good Barriers to Learning: Patient's medical status, cognitive status Pt/Family Agrees to Plan: Yes Safety Risks/Education Teaching Recipient: Patient Teaching Methods: Demonstration, Discussion Response to Teaching: Verbalize Understanding, Return Demonstration Education Topics Provided: Continued safety within her room and upon her return home Time Speech Therapy Time In: 08:30 Speech Therapy Time Out: 09:00 Total Billed Time: 30 Billed Treatment Time 1MAYELA BETHANIA ST Feb 13, 2021 08:47
[2021-02-13] MEDS: DOCUSATE SODIUM 100 MG (COLACE) CAP PO SCH ×2 (09:48→22:03)
[2021-02-13] MEDS: polyethylene glycoL POWDER 17 GM (MIRALAX) PACK PO SCH ×2 (09:48→22:35)
[2021-02-13] MEDS: SENNA W/DOCUSATE (SENOKOT S) TABLET PO SCH ×2 (09:49→22:03)
--- NOTE | 2021-02-13 11:08 | Physical Therapy Daily Note ---
PT Daily Note-Current Subjective Pt laying Supine in bed upon arrival. Pt's family is present for Family Training. Pt agrees to PT. Pain Location: No Pain Reported Mental Status Patient Orientation: Person, Place, Time, Situation Transfers SCALE: Activities may be completed with or without assistive devices. 1-Qkjavityhg-zwexmks completes the activity by him/herself with no assistance from a helper. 5-Set-up or Clean-up Assistance-helper sets up or cleans up; patient completes activity. [place] assists only prior to or following the activity. 4-Supervision or Touching Assistance-helper provides verbal cues and/or touching/steadying and/or contact guard assistance as patient completes activity. Assistance may be provided throughout the activity or intermittently. 3-Partial/Moderate Assistance-helper does LESS THAN HALF the effort. [place] lifts, holds or supports trunk or limbs, but provides less than half the effort. 2-Substantial/Maximal Assistance-helper does MORE THAN HALF the effort. [place] lifts or holds trunk or limbs and provides more than half the effort. 9-Apznrkyri-gogjug does ALL the effort. Patient does none of the effort to complete the activity. Or, the assistance of 2 or more helpers is required for the patient to complete the activity. If activity was not attempted, code reason: 7-Patient Refused. 9-Not Applicable-not attempted and the patient did not perform the activity before the current illness, exacerbation or injury. 10-Not Attempted due to Environmental Limitations-(lack of equipment, weather restraints, etc.). 88-Not Attempted due to Medical Conditions or Safety Concerns. Sit to Stand (QC): 5 Weight Bearing Right Lower Extremity: Right Full Weight Bearing Left Lower Extremity: Left Weight Bearing/Tolerated Gait Training Does the Patient Walk?: Yes Distance: 100' Walk 10 feet (QC): 5 Walk 50 ft with 2 Turns(QC): 5 Gait Persons Needed: 1 Gait Assistive Device: Walker Platform Wheelchair Training Does the Pt Use a Wheelchair?: No Stair Training Stair Training: Handrails/: 1 handrail #of Steps: 4 1 Step (curb) (QC): 4 4 Steps (QC): 4 R side rail for ascending and descending. Treatments CASHIER RECEPTIONIST discusses with pt & family about transfers, car transfer, stairs, Hip Precautions & Adaptive Equipment such as Bed Cane & Walker Platform. Assessment Current Status: Good Progress Pt has improved with strength and activity tolerance as well as evelyn of ambulation. PT Short Term Goals Short Term Goals Time Frame: Feb 10, 2021 Roll Left & Right: 4 Sit to lyin Lying to sitting on side of be: 4 Sit to stand: 4 Chair/bzj-mo-acfgp transfer: 4 Toilet transfer: 4 Car transfer: 3 Walk 10 feet: 4 Walk 50 feet with two turns: 4 PT Detention Goals Director Internal Communications Goals PT Detention Goals Time Frame: Feb 17, 2021 Roll Left & Right (QC): 6 Sit to Lying (QC): 6 Lying-Sitting on Side/Bed(QC): 6 Sit to Stand (QC): 6 Chair/Xuq-ee-Ncgdg Xfer(QC): 6 Toilet Transfer (QC): 5 Car Transfer (QC): 5 Does the Patient Walk: Yes Walk 10 feet (QC): 5 Walk 50ft with 2 Turns (QC): 5 Walk 150 ft (QC): 5 Walking 10ft on Uneven Surface: 5 1 Step (curb) (QC): 5 4 Steps (QC): 5 12 Steps (QC): 88 Picking up an Object (QC): 88 Wheel 50 feet with 2 turns (QC: 9 Wheel 150 feet: 9 PT Plan Problem List Problem List: Activity Tolerance Treatment/Plan Treatment Plan: Continue Plan of Care Treatment Plan: Bed Mobility, Functional Activity Tamiko, Functional Strength, Group Therapy, Gait, Safety, Therapeutic Exercise, Transfers Treatment Duration: Feb 17, 2021 Frequency: 11 times per week Estimated Hrs Per Day: 1.5 hours per day Patient and/or Family Agrees t: Yes Safety Risks/Education Patient Education: Gait Training, Transfer Techniques, Reviewed Precautions, Correct Positioning, Safety Issues Teaching Recipient: Patient Teaching Methods: Demonstration, Discussion Response to Teaching: Verbalize Understanding, Return Demonstration Time/GCodes Time In: 945 Time Out: 1030 Total Billed Treatment Time: 45 Total Billed Treatment 1, FA x2 (30m) & GT (15m) KELSEY MULLINS CASHIER RECEPTIONIST Feb 13, 2021 11:08
--- NOTE | 2021-02-13 12:39 | Occupational Ther Daily Note ---
OT Current Status-Daily Note Subjective No pain reported. Mental Status/Objective Patient Orientation: Person, Place, Time, Situation ADL-Treatment Therapy Code Descriptions/Definitions Functional [place] Measure: 0=Not Assessed/NA 4=Minimal Assistance 1=Total Assistance 5=Supervision or Setup 2=Maximal Assistance 6=Modified [place] 3=Moderate Assistance 7=Complete IndependenceSCALE: Activities may be completed with or without assistive devices. 1-Bmggkkxlzz-rqcwzjv completes the activity by him/herself with no assistance from a helper. 5-Set-up or Clean-up Assistance-helper sets up or cleans up; patient completes activity. [place] assists only prior to or following the activity. 4-Supervision or Touching Assistance-helper provides verbal cues and/or touching/steadying and/or contact guard assistance as patient completes activity. Assistance may be provided throughout the activity or intermittently. 3-Partial/Moderate Assistance-helper does LESS THAN HALF the effort. [place] lifts, holds or supports trunk or limbs, but provides less than half the effort. 2-Substantial/Maximal Assistance-helper does MORE THAN HALF the effort. [place] lifts or holds trunk or limbs and provides more than half the effort. 1-Uyhgscbym-mecoyh does ALL the effort. Patient does none of the effort to complete the activity. Or, the assistance of 2 or more helpers is required for the patient to complete the activity. If activity was not attempted, code reason: 7-Patient Refused. 9-Not Applicable-not attempted and the patient did not perform the activity before the current illness, exacerbation or injury. 10-Not Attempted due to Environmental Limitations-(lack of equipment, weather restraints, etc.). 88-Not Attempted due to Medical Conditions or Safety Concerns. Eating (QC): 6 Upper Body Dressing (QC): 3 (Min assist to position shirt correctly.) Lower Body Dressing (QC): 3 (Mod assist overall with use of adaptive equipment.) On/Off Footwear: 2 (Pt. doffed/donned slippers with assist of OT.) Toileting Hygiene (QC): 3 (Pt. able to cleanse self after toileting, but required min assistance to don pants over hips.) Toilet Transfer (QC): 4 (CGA with use of walker.) Other Treatment Pt. seen this date with family present for family training. Pt. educated on pt's current status, along with hip and arm precautions, and use of adaptive equipment. Family educated on use of equipment, and shown how to use equipment while pt. using it to complete morning ADLs. Pt. and family verbalize understanding of pt's needs, and will obtain hip kit, as well as platform for walker. Family has tub transfer bench, and will be obtaining bed cane for mobility needs. Pt. already has walker. Pt. up in chair at end of session. No further questions or needs identified. Education OT Patient Education: Correct positioning, Modified ADL techniques, Progress toward Goal/Update tx plan, Purpose of tx/functional activities, Reviewed precautions, Rehab process, Transfer techniques, Use of adapted equipment Teaching Recipient: Patient, Family Teaching Methods: Demonstration, Discussion Response to Teaching: Verbalize Understanding, Return Demonstration OT Short Term Goals Short Term Goals Eatin Oral hygiene: 6 Toileting hygiene: 4 Shower/bathe self: 4 Upper body dressin Lower body dressin Putting on/taking off footwear: 5 OT Senior Living Goals Senior Living Goals Time Frame: Feb 17, 2021 Eating (QC): 6 Oral Hygiene (QC): 6 Toileting Hygiene (QC): 6 Shower/Bathe Self (QC): 6 Upper Body Dressing (QC): 6 Lower Body Dressing (QC): 6 On/Off Footwear (QC): 6 Additional Goals: 1-Demonstrate ADL Tasks, 2-Verbalize Understanding, 3- ImproveStrength/[place] 1=Demonstrate adherence to instructed precautions during ADL tasks. 2=Patient will verbalize/demonstrate understanding of assistive devices/modifications for ADL. 3=Patient will improve strength/tolerance for activity to enable patient to perform ADL's. OT Education/Plan Problem List/Assessment Assessment: Decreased Activ Tolerance, Impaired I ADL's, Impaired Self-Care Skills Discharge Recommendations Plan/Recommendations: Continue POC Therapy Discharge Recommendati: Home & Family, Post Acute OT Equpiment Recommendations-D/C: Extended Bath Bench, Hip Kit Treatment Plan/Plan of Care Treatment,Training & Education: Yes Patient would benefit from OT for education, treatment and training to promote independence in ADL's, mobility, safety and/or upper extremity function for ADL's. Plan of Care: ADL Retraining, Caregiver Training, Functional Mobility, Group Exercise/Act as Ind, Orthotic Fitting/Training, UE Funct Exercise/Act, W/C M anagement Training Treatment Duration: Feb 17, 2021 Frequency: At least 5 of 7 days/Wk (IRF) Estimated Hrs Per Day: 1.5 hours per day Agreement: Yes Rehab Potential: Good Time/GCodes Start Time: 10:30 Stop Time: 11:25 Total Time Billed (hr/min): 55 Billed Treatment Time 1, ADL x 4 ERIKA ZELAYA OT Feb 13, 2021 12:39
--- NOTE | 2021-02-13 15:21 | Therapy Group Daily Note ---
Therapy Daily Group Note Patient Education Topic Home Safety Exercises LE Seated Exercise, UE Exercise Session Ratio (pt:therapist): 4:1 Goal of Session: Home Safety Strategies, UE/LE Strengthing Goal Met for this Session: Yes Pt Benefit of Group: Contributions to Others, F/U Use of Strategies @Home, Increased Functional Safety, Increased Functional Strength, Improved Cognition, Recognition of Peers, Socialization Other/Notes Pt ambulated using FWW to therapy gym for OT/PT group. Group consisted of introductions (name), socialization, B UE/LE seated exercises, home safety activity and home safety education. Pt introduced self appropriately and actively listen to peers. Pt then was able to complete B UE/LE seated exercises with modifications due to arm in cast. Pt acknowledged understanding of educational topics by giving own examples and answering questions during home safety activity. After group, pt lying in bed with call light/phone in reach. All needs met in room. Start Time: 13:00 Stop Time: 14:25 Total Billed Treatment Time: 85 Total Billed Treatment 1-[facility] KALIE MURRAY Feb 13, 2021 15:21
[2021-02-13 20:00] VITALS: BP 138/61
[2021-02-13] MEDS: MIRTAZAPINE 15 MG (REMERON) TAB PO SCH (22:04)
[2021-02-13] MEDS: SIMvastatin 10 MG (ZOCOR) TAB PO SCH (22:04)
--- NOTE | 2021-02-14 05:32 | PM&R Progress Note ---
Subjective HPI/CC On Admission Date Seen by Provider: Feb 14, 2021 Time Seen by Provider: 10:00 Subjective/Events-last exam 02/14/21: Pt doing pretty well Denies any pain Exhausted from therapy She doesnt usually do that much at home Incontinence is chronic Dr. Bryan and Dr. Maldonado will have follow-up appointments with her 02/13/2021: Pt having improved confusion Naps in between therapy and that works for her Hgb 11.7 Overall doing very well 02/12/2021: Patient doing really well Slept in a bit today at the bedside On a bed and chair alarm due to impulsiveness Incentive spirometer is being used independently Having some soft stools Walk pretty well today without a pain pill 02/11/2021: Pt doing pretty well No pain is reports Bowels moved today No major issues 02/10/2021: Pt doing really well Stopping the Flomax and Urocholine Daughter visited today Sleeps a lot at home 02/09/2021: Pt in a good mood Tolerating therapy Bowels are moving Bladder scan is showing minimal residual Urecholine down to once a day 02/08/2021: Pt doing pretty well Bowels moved yesterday Incontinence is chronic No pain is reported 02/07/2021: Pt doing pretty well No pain reported Voiding well Incontinent Her bottom is red but will monitor that Bowels moved yesterday 02/06/2021: Pt doing pretty well Participating in therapy Will DC the catheter and see if she can void on her own Urecholine and Flomax ordered Hgb 9.6 Bowels moved yesterday Sugars are okay 02/05/2021: Patient did not sleep well Did not call her family in the medical night like last night Left ankle skin graft has a bit of blisters so will monitor that closely Blood pressure was very elevated at 180/74 We will discontinue the catheter tomorrow Urinary medication given since she has retention after Guerrero catheters in the past Not moving too good overall 02/04/2021: This visit is via video chat due to Covid related restriction for this provider Patient in a really good mood today Bowels moved today Oxycodone doing pretty well for the left elbow pain Confused at night and called all of her family members at 0400 hrs. and her came to check on her at 4:00 this morning She is aware that she was confused and feels embarrassed about it Slums score is 25/30 so she definitely had some confusion with delirium and cognitive decline status We will monitor closely Review of Systems Musculoskeletal: arm pain, leg pain Objective Exam Vital Signs Vital Signs Date Time Temp Pulse Resp B/P (MAP) Pulse Ox O2 Delivery O2 Flow Rate FiO2 02/14/21 20:16 37.0 85 20 142/65 (90) 94 Room Air Capillary Refill : General Appearance: No Apparent Distress, WD/WN, Chronically ill, Obese HEENT: PERRL/EOMI, Normal ENT Inspection, Pharynx Normal, Moist Mucous Membranes; No Scleral Icterus (L), No Scleral Icterus (R) Neck: Normal Inspection, Supple Respiratory: Chest Non Tender, Lungs Clear, Normal Breath Sounds, No Accessory Muscle Use, No Respiratory Distress Cardiovascular: Regular Rate, Rhythm, No Edema, No Gallop, No JVD, No Murmur Gastrointestinal: Normal Bowel Sounds, Non Tender, Soft Extremity: No Calf Tenderness, No Pedal Edema Neurologic/Psychiatric: Alert, Oriented x3, Normal Mood/Affect, hides inspector II-XII Norm as Tested, Abnormal Gait, Depressed Affect, Motor Weakness (Left arm and left leg) Skin: Normal Color, Warm/Dry Results/Procedures Lab Patient resulted labs reviewed. Imaging: Reviewed Imaging Report FIM Transfers Therapy Code Descriptions/Definitions Functional [place] Measure: 0=Not Assessed/NA 4=Minimal Assistance 1=Total Assistance 5=Supervision or Setup 2=Maximal Assistance 6=Modified [place] 3=Moderate Assistance 7=Complete IndependenceSCALE: Activities may be completed with or without assistive devices. 6-Uirtgpdmlf-ifbxvjw completes the activity by him/herself with no assistance from a helper. 5-Set-up or Clean-up Assistance-helper sets up or cleans up; patient completes activity. [place] assists only prior to or following the activity. 4-Supervision or Touching Assistance-helper provides verbal cues and/or touching/steadying and/or contact guard assistance as patient completes activity. Assistance may be provided throughout the activity or intermittently. 3-Partial/Moderate Assistance-helper does LESS THAN HALF the effort. [place] lifts, holds or supports trunk or limbs, but provides less than half the effort. 2-Substantial/Maximal Assistance-helper does MORE THAN HALF the effort. [place] lifts or holds trunk or limbs and provides more than half the effort. 5-Rboasmvxy-ekhaml does ALL the effort. Patient does none of the effort to complete the activity. Or, the assistance of 2 or more helpers is required for the patient to complete the activity. If activity was not attempted, code reason: 7-Patient Refused. 9-Not Applicable-not attempted and the patient did not perform the activity before the current illness, exacerbation or injury. 10-Not Attempted due to Environmental Limitations-(lack of equipment, weather restraints, etc.). 88-Not Attempted due to Medical Conditions or Safety Concerns. Roll Left to Right (QC): 3 Sit to Lying (QC): 3 Sit to Stand (QC): 5 Chair/Hnz-kl-Qyspk Xfer(QC): 4 Car Transfer (QC): 88 Gait Training Does the Patient Walk?: Yes Distance: 100' Walk 10 feet (QC): 5 Walk 50 ft with 2 Turns(QC): 5 Walk 150 ft (QC): 4 Walking 10ft/uneven surface-QC: 2 Gait Persons Needed: 1 Gait Assistive Device: Walker Platform Wheelchair Training Does the Pt Use a Wheelchair?: No Wheel 50 ft with 2 turns (QC): 4 Wheel 150 ft (QC): 9 Type of Wheelchair: Manual Stair Training Stair Training: Handrails/: 1 handrail #of Steps: 4 1 Step (curb) (QC): 4 4 Steps (QC): 4 12 Steps (QC): 88 Balance Picking up an Object (QC): 88 ADL-Treatment Eating (QC): 6 Oral Hygiene (QC): 7 Bathing Location: L Arm, R Arm, L Upper Leg, R Upper Leg, Chest, Abdomen Shower/Bathe Self (QC): 4 (SBA-CGA during all tasks. Completes sponge bath EOB, decreased core strength and requires intermittent rest breaks.) Upper Body Dressing (QC): 3 (Min assist to position shirt correctly.) Lower Body Dressing (QC): 3 (Mod assist overall with use of adaptive equipment.) On/Off Footwear (QC): 2 (Pt. doffed/donned slippers with assist of OT.) Toileting Hygiene (QC): 3 (Pt. able to cleanse self after toileting, but required min assistance to don pants over hips.) Toilet Transfer (QC): 4 (CGA with use of walker.) Assessment/Plan Assessment and Plan Assess & Plan/Chief Complaint Assessment: Left femoral neck fracture Left humerus fracture Diabetes mellitus moderate control with hemoglobin A1c 8.6 Hyperlipidemia Hypertension Cognitive deficit slums score is 25/30 Sundowning and nighttime confusion on 02/04/2021 Acute hypokalemia added supplement on admission Postoperative anemia hemoglobin 11 Postop constipation now resolved Urinary retention acute on chronic requiring Guerrero catheter Plan: Blood sugar control Pain control Bowel regimen Monitor confusion 02/05/2021: Continue pain control Urinary catheter plan 02/06/2021: Urology appreciated Aggressive rehab 02/07/2021: Close monitoring of glucose Monitor closely 02/08/2021: Continue aggressive treatment Pain control Monitor closely 02/09/2021: Decrease Urecholine Aggressive therapy Monitor sugars 02/10/2021: DC Urecholine and Flomax Monitor blood pressure and blood sugar 02/11/2021: Transfers are improved Overall improved Monitor blood sugars 02/12/2021: Improved status Monitor closely Sugars and blood pressures reviewed 02/13/21: Discharge plan for tomorrow Reviewed meds and labs Left Platform attachment for wheeled walker is required: Patient has a left hip fracture with TUTU and is using a wheeled walker. Patient has left olecranon fracture with sling and remains under a limited weight bear status. Patient requires the the platform for trunk support during ambulation since she is unable to use her left arm to bear weight. 02/14/2021: Supportive care Discharge planning Four-wheel walker with platform (1) Fracture of femoral neck, left JEFF WASHBURN DO Feb 14, 2021 05:32
[2021-02-14] MEDS: inSUlin ASPART (NovoLOG) 1 UNIT/0.01 ML (CHARGE PER UNIT) SC SCH ×4 (05:44→20:12)
[2021-02-14] MEDS: VENlafaxine XR 75 MG (EFFEXOR XR) CAP PO SCH (06:41)
[2021-02-14] MEDS: glipiZIDE XL 5 MG (GLUCOTROL XL) TAB PO SCH (06:41)
[2021-02-14 07:53] VITALS: BP 128/59
[2021-02-14] MEDS: DOCUSATE SODIUM 100 MG (COLACE) CAP PO SCH ×2 (08:25→20:11)
[2021-02-14] MEDS: LOSARTAN 100 MG (COZAAR) TABLET PO SCH (08:26)
[2021-02-14] MEDS: KCL 10 MEQ TAB (MICRO K) PO SCH ×2 (08:26→20:11)
[2021-02-14] MEDS: SENNA W/DOCUSATE (SENOKOT S) TABLET PO SCH ×2 (08:26→20:11)
[2021-02-14] MEDS: amLODIPine 5 MG (NORVASC) TAB PO SCH (08:26)
[2021-02-14] MEDS: meTOprolol TARTRATE 25 MG (LOPRESSOR) TABLET PO SCH ×2 (08:26→20:11)
[2021-02-14] MEDS: polyethylene glycoL POWDER 17 GM (MIRALAX) PACK PO SCH ×2 (08:29→20:13)
[2021-02-14] MEDS: FAMOTIDINE 20 MG (PEPCID) TABLET PO SCH (08:29)
[2021-02-14] MEDS: inSUlin NPH (NovoLIN N) 1 UNIT/0.01 ML (CHARGE PER UNIT) SQ SCH ×2 (09:47→20:12)
--- NOTE | 2021-02-14 11:38 | Physical Therapy Daily Note ---
PT Daily Note-Current Subjective Pt sitting in recliner upon arrival. Pt agrees to PT. Pt asks to use BR at end of tx. Pain Location: No Pain Reported Mental Status Patient Orientation: Person, Place, Time, Situation Attachments: Other-See Comments (wrap/cast for L UE) Transfers SCALE: Activities may be completed with or without assistive devices. 7-Gedwddukpy-ktjamjv completes the activity by him/herself with no assistance from a helper. 5-Set-up or Clean-up Assistance-helper sets up or cleans up; patient completes activity. [place] assists only prior to or following the activity. 4-Supervision or Touching Assistance-helper provides verbal cues and/or touching/steadying and/or contact guard assistance as patient completes activity. Assistance may be provided throughout the activity or intermittently. 3-Partial/Moderate Assistance-helper does LESS THAN HALF the effort. [place] lifts, holds or supports trunk or limbs, but provides less than half the effort. 2-Substantial/Maximal Assistance-helper does MORE THAN HALF the effort. [place] lifts or holds trunk or limbs and provides more than half the effort. 1-Xljgfymeq-jnrnkd does ALL the effort. Patient does none of the effort to complete the activity. Or, the assistance of 2 or more helpers is required for the patient to complete the activity. If activity was not attempted, code reason: 7-Patient Refused. 9-Not Applicable-not attempted and the patient did not perform the activity before the current illness, exacerbation or injury. 10-Not Attempted due to Environmental Limitations-(lack of equipment, weather restraints, etc.). 88-Not Attempted due to Medical Conditions or Safety Concerns. Sit to Stand (QC): 5 Toilet Transfer (QC): 5 Weight Bearing Right Lower Extremity: Right Full Weight Bearing Left Lower Extremity: Left Weight Bearing/Tolerated Gait Training Does the Patient Walk?: Yes Distance: 150', 100' Walk 10 feet (QC): 5 Walk 50 ft with 2 Turns(QC): 5 Walk 150 ft (QC): 5 Walking 10ft/uneven surface-QC: 5 Gait Persons Needed: 1 Gait Assistive Device: FWW Treatments 945-1030: TF to standing and uses BR. Pt amb. in hallway and practices amb. over varying surface/thresholds. Pt takes RB then returns to room to rest in recliner at end of tx. All needs met, call light in hand. [id number]: Pt is given and reviews written HEP for Supine & Seated Ex. Pt resting in bed at end of tx. All needs met, call light in hand. Assessment Current Status: Good Progress Pt needs occasional RB as pt fatigues. PT Short Term Goals Short Term Goals Time Frame: Feb 10, 2021 Roll Left & Right: 4 Sit to lyin Lying to sitting on side of be: 4 Sit to stand: 4 Chair/xhz-rm-bqxbr transfer: 4 Toilet transfer: 4 Car transfer: 3 Walk 10 feet: 4 Walk 50 feet with two turns: 4 PT Snf Goals Snf Goals PT Halal Butcher Goals Time Frame: Feb 17, 2021 Roll Left & Right (QC): 6 Sit to Lying (QC): 6 Lying-Sitting on Side/Bed(QC): 6 Sit to Stand (QC): 6 Chair/Fsu-oj-Dyewg Xfer(QC): 6 Toilet Transfer (QC): 5 Car Transfer (QC): 5 Does the Patient Walk: Yes Walk 10 feet (QC): 5 Walk 50ft with 2 Turns (QC): 5 Walk 150 ft (QC): 5 Walking 10ft on Uneven Surface: 5 1 Step (curb) (QC): 5 4 Steps (QC): 5 12 Steps (QC): 88 Picking up an Object (QC): 88 Wheel 50 feet with 2 turns (QC: 9 Wheel 150 feet: 9 PT Plan Problem List Problem List: Activity Tolerance Treatment/Plan Treatment Plan: Continue Plan of Care Treatment Plan: Bed Mobility, Functional Activity Tamiko, Functional Strength, Group Therapy, Gait, Safety, Therapeutic Exercise, Transfers Treatment Duration: Feb 17, 2021 Frequency: 11 times per week Estimated Hrs Per Day: 1.5 hours per day Patient and/or Family Agrees t: Yes Time/GCodes Time In: 945 Time Out: 1030 Total Billed Treatment Time: 45 Total Billed Treatment 945-1030: 1, GT (20m) & FA x2 (25m) [id number]: 1, EX x2 (30m) KELSEY MULLINS COMPUTER TECHNICIAN Feb 14, 2021 11:38
--- NOTE | 2021-02-14 11:49 | Speech Therapy Daily Note ---
Speech Daily Progress Note Subjective Date Seen by Provider: Feb 14, 2021 Time Seen by Provider: 00:30 Patient was resting in her recliner following her other therapies. Objective Patient completed memory exercises related to her daily needs and sequencing with 80% given 15% cues. Assessment Assessment Current Status: Good Progress Treatment Plan Continue Plan of Care Speech Short Term Goals Short Term Goals Short Term Goals 1) Patient will complete safety awareness tasks at 90% or greater with minimal cues. 2) Patient will complete new information recall tasks at 90% or greater with minimal cues. Speech Warehouse Team Member Goals Fpc Goals Patient will demonstrate the ability to communicate and complete daily tasks with minimal assist. Speech-Plan Patient/Family Goals Patient/Family Goals: Patient will return to her home on , 02/16/21. She lives with her who will assist her with her needs. She also has other family available for assistance as needed. She is scheduled to receive home health nursing and therapy. Treatment Plan Speech Therapy Treatment Plan: Continue Plan of Care Treatment Duration: Feb 17, 2021 Frequency: 4 times per week Estimated Hrs Per Day: .5 hour per day Rehab Potential: Good Barriers to Learning: Patient's recent health status due to fall with fractures. Pt/Family Agrees to Plan: Yes Safety Risks/Education Teaching Recipient: Patient Teaching Methods: Demonstration, Discussion Response to Teaching: Verbalize Understanding, Return Demonstration Education Topics Provided: Continued safety and communication Time Speech Therapy Time In: 11:30 Speech Therapy Time Out: 12:00 Total Billed Time: 30 Billed Treatment Time 1MAYELA BETHANIA ST Feb 14, 2021 11:49
--- NOTE | 2021-02-14 12:29 | Occupational Ther Daily Note ---
OT Current Status-Daily Note Subjective No pain reported. Appearance Pt. in bed. Agrees to work with OT. Mental Status/Objective Patient Orientation: Person, Place, Time, Situation ADL-Treatment Therapy Code Descriptions/Definitions Functional [place] Measure: 0=Not Assessed/NA 4=Minimal Assistance 1=Total Assistance 5=Supervision or Setup 2=Maximal Assistance 6=Modified [place] 3=Moderate Assistance 7=Complete IndependenceSCALE: Activities may be completed with or without assistive devices. 0-Valujvcyom-azzqomr completes the activity by him/herself with no assistance from a helper. 5-Set-up or Clean-up Assistance-helper sets up or cleans up; patient completes activity. [place] assists only prior to or following the activity. 4-Supervision or Touching Assistance-helper provides verbal cues and/or touching/steadying and/or contact guard assistance as patient completes activity. Assistance may be provided throughout the activity or intermittently. 3-Partial/Moderate Assistance-helper does LESS THAN HALF the effort. [place] lifts, holds or supports trunk or limbs, but provides less than half the effort. 2-Substantial/Maximal Assistance-helper does MORE THAN HALF the effort. [place] lifts or holds trunk or limbs and provides more than half the effort. 4-Iymhzvzzn-hwjefk does ALL the effort. Patient does none of the effort to complete the activity. Or, the assistance of 2 or more helpers is required for the patient to complete the activity. If activity was not attempted, code reason: 7-Patient Refused. 9-Not Applicable-not attempted and the patient did not perform the activity before the current illness, exacerbation or injury. 10-Not Attempted due to Environmental Limitations-(lack of equipment, weather restraints, etc.). 88-Not Attempted due to Medical Conditions or Safety Concerns. Eating (QC): 5 Oral Hygiene (QC): 6 (Seated at sink to brush teeth and hair.) Shower/Bathe Self (QC): 3 (Pt. requires min assist for sit-stand, and CGA in stance during ADLs. Requires min assist for rear veronica wash. Able to wash Bilateral LE with LH sponge.) Upper Body Dressing (QC): 3 (Mod assist to don bra, and min assist to don shirt over cast.) Lower Body Dressing (QC): 3 (Mod assist overall to don pants using AE.) On/Off Footwear: 3 (Min assist with AE to don slipper socks.) Toileting Hygiene (QC): 3 (Mod assist. Pt. required min assist to doff/don pants over hips in stance. Pt. able to cleanse front veronica area, but required assistance to cleanse rear veronica area.) Toilet Transfer (QC): 3 (Min assist.) Education OT Patient Education: Correct positioning, Modified ADL techniques, Progress toward Goal/Update tx plan, Purpose of tx/functional activities, Reviewed precautions, Rehab process, Transfer techniques Teaching Recipient: Patient Teaching Methods: Demonstration, Discussion Response to Teaching: Verbalize Understanding, Return Demonstration, Reinforcement Needed OT Short Term Goals Short Term Goals Eatin Oral hygiene: 6 Toileting hygiene: 4 Shower/bathe self: 4 Upper body dressin Lower body dressin Putting on/taking off footwear: 5 OT Ticker Wirer Goals Ticker Wirer Goals Time Frame: Feb 17, 2021 Eating (QC): 6 Oral Hygiene (QC): 6 Toileting Hygiene (QC): 6 Shower/Bathe Self (QC): 6 Upper Body Dressing (QC): 6 Lower Body Dressing (QC): 6 On/Off Footwear (QC): 6 Additional Goals: 1-Demonstrate ADL Tasks, 2-Verbalize Understanding, 3- ImproveStrength/Tamiko 1=Demonstrate adherence to instructed precautions during ADL tasks. 2=Patient will verbalize/demonstrate understanding of assistive devices/modifications for ADL. 3=Patient will improve strength/tolerance for activity to enable patient to perform ADL's. OT Education/Plan Problem List/Assessment Assessment: Decreased Activ Tolerance, Impaired I ADL's, Impaired Self-Care Skills, Restricted Funct UE ROM Discharge Recommendations Plan/Recommendations: Continue POC Therapy Discharge Recommendati: Home & Family, Post Acute OT Equpiment Recommendations-D/C: Hip Kit Treatment Plan/Plan of Care Treatment,Training & Education: Yes Patient would benefit from OT for education, treatment and training to promote independence in ADL's, mobility, safety and/or upper extremity function for ADL's. Plan of Care: ADL Retraining, Caregiver Training, Functional Mobility, Group Exercise/Act as Ind, Orthotic Fitting/Training, UE Funct Exercise/Act, W/C Management Training Treatment Duration: Feb 17, 2021 Frequency: At least 5 of 7 days/Wk (IRF) Estimated Hrs Per Day: 1.5 hours per day Agreement: Yes Rehab Potential: Good Time/GCodes Start Time: 08:15 Stop Time: 09:30 Total Time Billed (hr/min): 75 Billed Treatment Time 1, ADL x 5 ERIKA ZELAYA OT Feb 14, 2021 12:29
[2021-02-14] MEDS ORDERED: HYDR25TA4 PO (14:01)
[2021-02-14] MEDS ORDERED: VENL75CA93 PO (14:01)
[2021-02-14] MEDS ORDERED: OMEP20CA18 PO (14:01)
[2021-02-14] MEDS ORDERED: GLIP10TA24 PO (14:01)
[2021-02-14] MEDS ORDERED: ALPR0.254 PO (14:01)
[2021-02-14] MEDS ORDERED: INSU100V31 SQ (14:01)
[2021-02-14] MEDS ORDERED: LOSA100T57 PO (14:01)
[2021-02-14] MEDS ORDERED: INSN1U SQ (14:01)
[2021-02-14] MEDS: SIMvastatin 10 MG (ZOCOR) TAB PO SCH (20:11)
[2021-02-14] MEDS: MIRTAZAPINE 15 MG (REMERON) TAB PO SCH (20:12)
[2021-02-14 20:16] VITALS: BP 142/65
--- NOTE | 2021-02-15 05:24 | PM&R Progress Note ---
Subjective HPI/CC On Admission Date Seen by Provider: Feb 15, 2021 Time Seen by Provider: 11:00 Subjective/Events-last exam 02/15/2021: Pt doing pretty well DC is planned for tomorrow No pain No issues Bowels moved yesterday Poor memory noted 02/14/21: Pt doing pretty well Denies any pain Exhausted from therapy She doesnt usually do that much at home Incontinence is chronic Dr. Bryan and Dr. Maldonado will have follow-up appointments with her 02/13/2021: Pt having improved confusion Naps in between therapy and that works for her Hgb 11.7 Overall doing very well 02/12/2021: Patient doing really well Slept in a bit today at the bedside On a bed and chair alarm due to impulsiveness Incentive spirometer is being used independently Having some soft stools Walk pretty well today without a pain pill 02/11/2021: Pt doing pretty well No pain is reports Bowels moved today No major issues 02/10/2021: Pt doing really well Stopping the Flomax and Urocholine Daughter visited today Sleeps a lot at home 02/09/2021: Pt in a good mood Tolerating therapy Bowels are moving Bladder scan is showing minimal residual Urecholine down to once a day 02/08/2021: Pt doing pretty well Bowels moved yesterday Incontinence is chronic No pain is reported 02/07/2021: Pt doing pretty well No pain reported Voiding well Incontinent Her bottom is red but will monitor that Bowels moved yesterday 02/06/2021: Pt doing pretty well Participating in therapy Will DC the catheter and see if she can void on her own Urecholine and Flomax ordered Hgb 9.6 Bowels moved yesterday Sugars are okay 02/05/2021: Patient did not sleep well Did not call her family in the medical night like last night Left ankle skin graft has a bit of blisters so will monitor that closely Blood pressure was very elevated at 180/74 We will discontinue the catheter tomorrow Urinary medication given since she has retention after Guerrero catheters in the past Not moving too good overall 02/04/2021: This visit is via video chat due to Covid related restriction for this provider Patient in a really good mood today Bowels moved today Oxycodone doing pretty well for the left elbow pain Confused at night and called all of her family members at 0400 hrs. and her came to check on her at 4:00 this morning She is aware that she was confused and feels embarrassed about it Slums score is 25/30 so she definitely had some confusion with delirium and cognitive decline status We will monitor closely Review of Systems Musculoskeletal: arm pain, leg pain Objective Exam Vital Signs Vital Signs Date Time Temp Pulse Resp B/P (MAP) Pulse Ox O2 Delivery O2 Flow Rate FiO2 02/15/21 20:19 36.6 83 18 134/64 (87) 94 Room Air Capillary Refill : General Appearance: No Apparent Distress, WD/WN, Chronically ill, Obese HEENT: PERRL/EOMI, Normal ENT Inspection, Pharynx Normal, Moist Mucous Membranes; No Scleral Icterus (L), No Scleral Icterus (R) Neck: Normal Inspection, Supple Respiratory: Chest Non Tender, Lungs Clear, Normal Breath Sounds, No Accessory Muscle Use, No Respiratory Distress Cardiovascular: Regular Rate, Rhythm, No Edema, No Gallop, No JVD, No Murmur Gastrointestinal: Normal Bowel Sounds, Non Tender, Soft Extremity: No Calf Tenderness, No Pedal Edema Neurologic/Psychiatric: Alert, Oriented x3, Normal Mood/Affect, well blower II-XII Norm as Tested, Abnormal Gait, Depressed Affect, Motor Weakness (Left arm and left leg) Skin: Normal Color, Warm/Dry Results/Procedures Lab Patient resulted labs reviewed. Imaging: Reviewed Imaging Report FIM Transfers Therapy Code Descriptions/Definitions Functional [place] Measure: 0=Not Assessed/NA 4=Minimal Assistance 1=Total Assistance 5=Supervision or Setup 2=Maximal Assistance 6=Modified [place] 3=Moderate Assistance 7=Complete IndependenceSCALE: Activities may be completed with or without assistive devices. 3-Vxtlulmnwl-bicqsju completes the activity by him/herself with no assistance from a helper. 5-Set-up or Clean-up Assistance-helper sets up or cleans up; patient completes activity. [place] assists only prior to or following the activity. 4-Supervision or Touching Assistance-helper provides verbal cues and/or touching/steadying and/or contact guard assistance as patient completes activity. Assistance may be provided throughout the activity or intermittently. 3-Partial/Moderate Assistance-helper does LESS THAN HALF the effort. [place] lifts, holds or supports trunk or limbs, but provides less than half the effort. 2-Substantial/Maximal Assistance-helper does MORE THAN HALF the effort. [place] lifts or holds trunk or limbs and provides more than half the effort. 2-Bvrdhkfhd-yqlgxt does ALL the effort. Patient does none of the effort to complete the activity. Or, the assistance of 2 or more helpers is required for the patient to complete the activity. If activity was not attempted, code reason: 7-Patient Refused. 9-Not Applicable-not attempted and the patient did not perform the activity before the current illness, exacerbation or injury. 10-Not Attempted due to Environmental Limitations-(lack of equipment, weather restraints, etc.). 88-Not Attempted due to Medical Conditions or Safety Concerns. Roll Left to Right (QC): 3 Sit to Lying (QC): 3 Sit to Stand (QC): 5 Chair/Fmw-qu-Clgls Xfer(QC): 4 Car Transfer (QC): 88 Gait Training Does the Patient Walk?: Yes Distance: 150', 100' Walk 10 feet (QC): 5 Walk 50 ft with 2 Turns(QC): 5 Walk 150 ft (QC): 5 Walking 10ft/uneven surface-QC: 5 Gait Persons Needed: 1 Gait Assistive Device: FWW Wheelchair Training Does the Pt Use a Wheelchair?: No Wheel 50 ft with 2 turns (QC): 4 Wheel 150 ft (QC): 9 Stair Training Stair Training: Handrails/: 1 handrail #of Steps: 4 1 Step (curb) (QC): 4 4 Steps (QC): 4 12 Steps (QC): 88 Balance Picking up an Object (QC): 88 ADL-Treatment Eating (QC): 5 Oral Hygiene (QC): 6 (Seated at sink to brush teeth and hair.) Bathing Location: L Arm, R Arm, L Upper Leg, R Upper Leg, Chest, Abdomen Shower/Bathe Self (QC): 3 (Pt. requires min assist for sit-stand, and CGA in stance during ADLs. Requires min assist for rear veronica wash. Able to wash Bilateral LE with LH sponge.) Upper Body Dressing (QC): 3 (Mod assist to don bra, and min assist to don shirt over cast.) Lower Body Dressing (QC): 3 (Mod assist overall to don pants using AE.) On/Off Footwear (QC): 3 (Min assist with AE to don slipper socks.) Toileting Hygiene (QC): 3 (Mod assist. Pt. required min assist to doff/don pants over hips in stance. Pt. able to cleanse front veronica area, but required assistance to cleanse rear veronica area.) Toilet Transfer (QC): 3 (Min assist.) Assessment/Plan Assessment and Plan Assess & Plan/Chief Complaint Assessment: Left femoral neck fracture Left humerus fracture Diabetes mellitus moderate control with hemoglobin A1c 8.6 Hyperlipidemia Hypertension Cognitive deficit slums score is 25/30 Sundowning and nighttime confusion on 02/04/2021 Acute hypokalemia added supplement on admission Postoperative anemia hemoglobin 11 Postop constipation now resolved Urinary retention acute on chronic requiring Guerrero catheter Plan: Blood sugar control Pain control Bowel regimen Monitor confusion 02/05/2021: Continue pain control Urinary catheter plan 02/06/2021: Urology appreciated Aggressive rehab 02/07/2021: Close monitoring of glucose Monitor closely 02/08/2021: Continue aggressive treatment Pain control Monitor closely 02/09/2021: Decrease Urecholine Aggressive therapy Monitor sugars 02/10/2021: DC Urecholine and Flomax Monitor blood pressure and blood sugar 02/11/2021: Transfers are improved Overall improved Monitor blood sugars 02/12/2021: Improved status Monitor closely Sugars and blood pressures reviewed 02/13/21: Discharge plan for tomorrow Reviewed meds and labs Left Platform attachment for wheeled walker is required: Patient has a left hip fracture with TUTU and is using a wheeled walker. Patient has left olecranon fracture with sling and remains under a limited weight bear status. Patient requires the the platform for trunk support during ambulation since she is unable to use her left arm to bear weight. 02/14/2021: Supportive care Discharge planning Four-wheel walker with platform 02/15/2021: Discharge tomorrow DME all set up (1) Fracture of femoral neck, left JEFF WASHBURN DO Feb 15, 2021 05:24
[2021-02-15] MEDS: inSUlin ASPART (NovoLOG) 1 UNIT/0.01 ML (CHARGE PER UNIT) SC SCH ×4 (05:29→20:09)
[2021-02-15] MEDS: VENlafaxine XR 75 MG (EFFEXOR XR) CAP PO SCH (06:02)
[2021-02-15] MEDS: glipiZIDE XL 5 MG (GLUCOTROL XL) TAB PO SCH (06:02)
[2021-02-15 07:24] VITALS: BP 148/66
--- NOTE | 2021-02-15 08:17 | Speech Therapy Daily Note ---
Speech Daily Progress Note Subjective Date Seen by Provider: Feb 15, 2021 Time Seen by Provider: 00:30 Patient was resting in her recliner following her OT session. She is excited about returning to her home tomorrow. Objective Patient completed a series of cognitive tasks related to safety upon her return home at 90% with minimal cues. Assessment Assessment Current Status: Good Progress Treatment Plan Continue Plan of Care Speech Short Term Goals Short Term Goals Short Term Goals 1) Patient will complete safety awareness tasks at 90% or greater with minimal cues. 2) Patient will complete new information recall tasks at 90% or greater with minimal cues. Speech Ash Conveyor Operator Goals Fdc Goals Patient will demonstrate the ability to communicate and complete daily tasks with minimal assist. Speech-Plan Patient/Family Goals Patient/Family Goals: Patient is scheduled to return home on , 02/16/2021. Patient lives with her who will assist her. Treatment Plan Speech Therapy Treatment Plan: Discontinue ST, Goals Met Treatment Duration: Feb 17, 2021 Frequency: 4 times per week Estimated Hrs Per Day: .5 hour per day Rehab Potential: Good Barriers to Learning: Patient's recent fall with fractured arm and leg, age Pt/Family Agrees to Plan: Yes Safety Risks/Education Teaching Recipient: Patient Teaching Methods: Demonstration, Discussion Response to Teaching: Verbalize Understanding, Return Demonstration Education Topics Provided: Continued safety awareness upon her return home Time Speech Therapy Time In: 10:30 Speech Therapy Time Out: 11:00 Total Billed Time: 30 Billed Treatment Time 1, SLTS No QUALITY CODES: EXPRESSION OF IDEAS/WANTS: 4 UNDERSTANDING VERBAL CONTENT: 4 BRIEF INTERVIEW MENTAL STATUS: YES REPETITION OF 3 WORDS: 3 TEMPORAL ORIENTATION: YEAR: CORRECT, MONTH: CORRECT, DAY: CORRECT RECALL SOCK: YES WITH CUE, COLOR: YES, BED: YES MEMORY/RECALL ABILITY: SEASON, LOCATION OF ROOM, STAFF NAMES, THAT SHE IS IN THE HOSPITAL CONSTANCE MOURA Feb 15, 2021 08:17
[2021-02-15] MEDS: DOCUSATE SODIUM 100 MG (COLACE) CAP PO SCH ×2 (09:08→20:10)
[2021-02-15] MEDS: SENNA W/DOCUSATE (SENOKOT S) TABLET PO SCH ×2 (09:08→20:10)
[2021-02-15] MEDS: amLODIPine 5 MG (NORVASC) TAB PO SCH (09:08)
[2021-02-15] MEDS: LOSARTAN 100 MG (COZAAR) TABLET PO SCH (09:08)
[2021-02-15] MEDS: FAMOTIDINE 20 MG (PEPCID) TABLET PO SCH (09:08)
[2021-02-15] MEDS: meTOprolol TARTRATE 25 MG (LOPRESSOR) TABLET PO SCH ×2 (09:08→20:10)
[2021-02-15] MEDS: inSUlin NPH (NovoLIN N) 1 UNIT/0.01 ML (CHARGE PER UNIT) SQ SCH ×2 (09:09→20:09)
[2021-02-15] MEDS: polyethylene glycoL POWDER 17 GM (MIRALAX) PACK PO SCH ×2 (09:11→19:24)
[2021-02-15] MEDS: KCL 10 MEQ TAB (MICRO K) PO SCH ×2 (09:18→20:10)
--- NOTE | 2021-02-15 12:17 | Occupational Ther Daily Note ---
OT Current Status-Daily Note Subjective No pain reported. Mental Status/Objective Patient Orientation: Person, Place, Time, Situation ADL-Treatment Therapy Code Descriptions/Definitions Functional [place] Measure: 0=Not Assessed/NA 4=Minimal Assistance 1=Total Assistance 5=Supervision or Setup 2=Maximal Assistance 6=Modified [place] 3=Moderate Assistance 7=Complete IndependenceSCALE: Activities may be completed with or without assistive devices. 8-Unonlcrvku-dzlpbcl completes the activity by him/herself with no assistance from a helper. 5-Set-up or Clean-up Assistance-helper sets up or cleans up; patient completes activity. [place] assists only prior to or following the activity. 4-Supervision or Touching Assistance-helper provides verbal cues and/or touching/steadying and/or contact guard assistance as patient completes activity. Assistance may be provided throughout the activity or intermittently. 3-Partial/Moderate Assistance-helper does LESS THAN HALF the effort. [place] lifts, holds or supports trunk or limbs, but provides less than half the effort. 2-Substantial/Maximal Assistance-helper does MORE THAN HALF the effort. [place] lifts or holds trunk or limbs and provides more than half the effort. 4-Ygkrzlgkj-dlexff does ALL the effort. Patient does none of the effort to complete the activity. Or, the assistance of 2 or more helpers is required for the patient to complete the activity. If activity was not attempted, code reason: 7-Patient Refused. 9-Not Applicable-not attempted and the patient did not perform the activity before the current illness, exacerbation or injury. 10-Not Attempted due to Environmental Limitations-(lack of equipment, weather restraints, etc.). 88-Not Attempted due to Medical Conditions or Safety Concerns. Oral Hygiene (QC): 6 (Seated at sink to brush teeth.) Shower/Bathe Self (QC): 7 Upper Body Dressing (QC): 7 Lower Body Dressing (QC): 7 Toileting Hygiene (QC): 4 (CGA) Toilet Transfer (QC): 4 Other Treatment Pt. up in chair. Agrees to work with OT. Declines changing out of hospital gown and into clothing. Agrees to ambulate to therapy gym. Pt. stands from chair with min assist at walker. Ambulates with slow gait and CGA to therapy gym. Dons 1 lb. wrist weight on right UE and completes peg activity to increase overall strength with recipricol movement back and forth. Stood to ambulate back to room. Toileted once in room with CGA. All needs met up in chair. Education OT Patient Education: Correct positioning, Modified ADL techniques, Progress toward Goal/Update tx plan, Purpose of tx/functional activities, Reviewed precautions, Rehab process, Transfer techniques Teaching Recipient: Patient Teaching Methods: Demonstration, Discussion Response to Teaching: Verbalize Understanding, Return Demonstration OT Short Term Goals Short Term Goals Eatin Oral hygiene: 6 Toileting hygiene: 4 Shower/bathe self: 4 Upper body dressin Lower body dressin Putting on/taking off footwear: 5 OT Distribution Coordinator Goals Distribution Coordinator Goals Time Frame: Feb 17, 2021 Eating (QC): 6 Oral Hygiene (QC): 6 Toileting Hygiene (QC): 6 Shower/Bathe Self (QC): 6 Upper Body Dressing (QC): 6 Lower Body Dressing (QC): 6 On/Off Footwear (QC): 6 Additional Goals: 1-Demonstrate ADL Tasks, 2-Verbalize Understanding, 3- ImproveStrength/Tamiko 1=Demonstrate adherence to instructed precautions during ADL tasks. 2=Patient will verbalize/demonstrate understanding of assistive devices/modifications for ADL. 3=Patient will improve strength/tolerance for activity to enable patient to perform ADL's. OT Education/Plan Problem List/Assessment Assessment: Decreased Activ Tolerance, Impaired I ADL's, Impaired Self-Care Skills Discharge Recommendations Plan/Recommendations: Continue POC Therapy Discharge Recommendati: Home & Family, Post Acute OT Equpiment Recommendations-D/C: Hip Kit Treatment Plan/Plan of Care Treatment,Training & Education: Yes Patient would benefit from OT for education, treatment and training to promote independence in ADL's, mobility, safety and/or upper extremity function for ADL's. Plan of Care: ADL Retraining, Caregiver Training, Functional Mobility, Group Exercise/Act as Ind, Orthotic Fitting/Training, UE Funct Exercise/Act, W/C Management Training Treatment Duration: Feb 17, 2021 Frequency: At least 5 of 7 days/Wk (IRF) Estimated Hrs Per Day: 1.5 hours per day Agreement: Yes Rehab Potential: Good Time/GCodes Start Time: 08:15 Stop Time: 09:00 Total Time Billed (hr/min): 45 Billed Treatment Time 1, ADL x 15minutes, FA x 30minutes ERIKA ZELAYA OT Feb 15, 2021 12:16
--- NOTE | 2021-02-15 12:26 | Physical Therapy Daily Note ---
PT Daily Note-Current Subjective Pt sitting in recliner upon arrival. Pt agrees to PT for QC scoring. Pain Numeric Pain Scale: 3 Location: Left, Upper Location Body Site: Thigh Pain Description: Ache, Tightness Mental Status Patient Orientation: Person, Place, Time, Situation Attachments: Other-See Comments (cast/wrap for L elbow) Transfers SCALE: Activities may be completed with or without assistive devices. 1-Azfdixsozj-abezyfi completes the activity by him/herself with no assistance from a helper. 5-Set-up or Clean-up Assistance-helper sets up or cleans up; patient completes activity. [place] assists only prior to or following the activity. 4-Supervision or Touching Assistance-helper provides verbal cues and/or touching/steadying and/or contact guard assistance as patient completes activity. Assistance may be provided throughout the activity or intermittently. 3-Partial/Moderate Assistance-helper does LESS THAN HALF the effort. [place] lifts, holds or supports trunk or limbs, but provides less than half the effort. 2-Substantial/Maximal Assistance-helper does MORE THAN HALF the effort. [place] lifts or holds trunk or limbs and provides more than half the effort. 9-Qndbzftnx-yednnp does ALL the effort. Patient does none of the effort to complete the activity. Or, the assistance of 2 or more helpers is required for the patient to complete the activity. If activity was not attempted, code reason: 7-Patient Refused. 9-Not Applicable-not attempted and the patient did not perform the activity before the current illness, exacerbation or injury. 10-Not Attempted due to Environmental Limitations-(lack of equipment, weather restraints, etc.). 88-Not Attempted due to Medical Conditions or Safety Concerns. Roll Left & Right (QC): 6 Sit to Lying (QC): 6 Lying to Sitting/Side of Bed(Q: 6 Sit to Stand (QC): 6 Chair/Uov-it-Gqdtc Xfer(QC): 6 Toilet Transfer (QC): 6 Car Transfer (QC): 6 Pt uses looped gait belt to assist self with pulling L LE into bed. Weight Bearing Right Lower Extremity: Right Full Weight Bearing Left Lower Extremity: Left Weight Bearing/Tolerated Gait Training Does the Patient Walk?: Yes Distance: 100' x2 Walk 10 feet (QC): 6 Walk 50 ft with 2 Turns(QC): 6 Walk 150 ft (QC): 6 Walking 10ft/uneven surface-QC: 6 Gait Persons Needed: 0 Gait Assistive Device: Walker Platform Pt's evelyn during gait remains slow but steady. 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 Treatments Pt completes QC scoring items listed above. Pt returns to room to use BR and rests in recliner at end of tx. Assessment Current Status: Good Progress Pt has made improvements with strength, transfers and mobility as well as independence of tasks. Pt is still limited by lack of use of L UE until healed. PT Short Term Goals Short Term Goals Time Frame: Feb 10, 2021 Roll Left & Right: 4 Sit to lyin Lying to sitting on side of be: 4 Sit to stand: 4 Chair/teo-fu-nhcej transfer: 4 Toilet transfer: 4 Car transfer: 3 Walk 10 feet: 4 Walk 50 feet with two turns: 4 PT Alf Goals Surgical Garment Assembly Supervisor Goals PT Surgical Garment Assembly Supervisor Goals Time Frame: Feb 17, 2021 Roll Left & Right (QC): 6 Sit to Lying (QC): 6 Lying-Sitting on Side/Bed(QC): 6 Sit to Stand (QC): 6 Chair/Rdz-jp-Mahbo Xfer(QC): 6 Toilet Transfer (QC): 5 Car Transfer (QC): 5 Does the Patient Walk: Yes Walk 10 feet (QC): 5 Walk 50ft with 2 Turns (QC): 5 Walk 150 ft (QC): 5 Walking 10ft on Uneven Surface: 5 1 Step (curb) (QC): 5 4 Steps (QC): 5 12 Steps (QC): 88 Picking up an Object (QC): 88 Wheel 50 feet with 2 turns (QC: 9 Wheel 150 feet: 9 PT Plan Problem List Problem List: Activity Tolerance Treatment/Plan Treatment Plan: Continue Plan of Care Treatment Plan: Bed Mobility, Functional Activity Tamiko, Functional Strength, Group Therapy, Gait, Safety, Therapeutic Exercise, Transfers Treatment Duration: Feb 17, 2021 Frequency: 11 times per week Estimated Hrs Per Day: 1.5 hours per day Patient and/or Family Agrees t: Yes Safety Risks/Education Patient Education: Transfer Techniques, Correct Positioning, Safety Issues Teaching Recipient: Patient Teaching Methods: Discussion Response to Teaching: Verbalize Understanding Time/GCodes Time In: 1100 Time Out: 1145 Total Billed Treatment Time: 45 Total Billed Treatment 1, FA x3 (45m) KELSEY MULLINS CHEF UNDER Feb 15, 2021 12:26
--- NOTE | 2021-02-15 14:55 | Therapy Group Daily Note ---
Therapy Daily Group Note Patient Education Topic Other List Below (Safety Signs and what they mean) Exercises LE Seated Exercise, UE Exercise Session Ratio (pt:therapist): 4:1 Goal of Session: UE/LE Strengthing, Other (list) (Safety Signs and what they mean) Goal Met for this Session: Yes Pt Benefit of Group: Contributions to Others, F/U Use of Strategies @Home, Increased Functional Safety, Increased Functional Strength, Improved Cognition, Recognition of Peers, Socialization Other/Notes Pt ambulated to PT/OT Group. Group consisted of Introduction (Name, Where from), Socialization, Seated LE & UE Exercises as well Safety Sign Bingo and what the signs mean/how can safety be obtained. Pt participated in Group by actively listening to peers during Group, completing exercises and finding the safety signs as they are called out. Pt returns to room to use restroom and returns to recliner at end of Group with all needs met, call light in hand. Start Time: 13:00 Stop Time: 14:20 Total Billed Treatment Time: 80 Total Billed Treatment 1, GRP (80m) KELSEY MULLINS SCIENTIFIC ADVISOR Feb 15, 2021 14:55
[2021-02-15] MEDS: MIRTAZAPINE 15 MG (REMERON) TAB PO SCH (20:10)
[2021-02-15] MEDS: SIMvastatin 10 MG (ZOCOR) TAB PO SCH (20:10)
[2021-02-15 20:19] VITALS: BP 134/64
[2021-02-16] MEDS ORDERED: ALPR0.254 PO (05:19)
[2021-02-16] MEDS ORDERED: MIRT-47 PO (05:19)
[2021-02-16] MEDS ORDERED: POTA10TA6 PO (05:19)
[2021-02-16] MEDS ORDERED: CYCL10TA9 PO (05:19)
[2021-02-16] MEDS ORDERED: OXC5T PO (05:19)
[2021-02-16] MEDS ORDERED: FAMO20TA5 PO (05:19)
[2021-02-16] MEDS ORDERED: NPH,100V SQ (05:19)
[2021-02-16] MEDS ORDERED: METO-333 PO (05:19)
[2021-02-16] MEDS ORDERED: AMLO-250 PO (05:19)
[2021-02-16] MEDS ORDERED: SIMV10TA26 PO (05:19)
--- NOTE | 2021-02-16 05:22 | D/C HH Face to Face Order ---
D/C Face to Face Orders Reconcile Patient Problems Problems Reviewed?: Yes Instructions for Patient [facility], Patient Instructions/FollowUp: PCP [address] Maldonado/Irvin as scheduled Physician to follow Patient: PCP Discharge Diet for Home: ADA Diet Patient Problems: Left hip and left olecranon fracture Patient Data-Allergies,Ht & Wt Patient Allergies: Coded Allergies: metformin (Verified Allergy, Unknown, 02/02/21) pantoprazole (Verified Allergy, Unknown, 02/02/21) Home Health Need/Face to Face Date of Face to Face: Feb 16, 2021 Clinical Findings: Generalized weakness and fatigue, Instability, Muscle weakness, Pain with ambulation, Unsteady gait I have seen Pt onps-cs-lipw: Yes Discharged To: Home Diagnosis/Conditions: Left hip and left olecranon fracture Patient is Homebound due to: CognItive deficits, No fall risk due to instabilty, Muscle weakness, Pain w/ambulation Homebound Status Due to the above stated illness, injury or surgical procedure (medical condition or diagnosis) and associated clinical findings, the patient is homebound because of his/her inability to leave home except with aid of a supportive device and/or person AND leaving the home requires a considerable and taxing effort or is medically contraindicated. Pt req the following assistanc: Walker Home Health Nursing Orders Home Health Services Order: Nursing Services, Writer-Evaluate & Treat, Physical Therapy-Evaluate & Treat Certify Stmt I certify that this patient is under my care and that I, a nurse practitioner or a physician; a special education assistant working with me, had a face to face encounter that - meets the physician face to face encounter requirements with this patient as dated. JEFF WASHBURN DO Feb 16, 2021 05:22
--- NOTE | 2021-02-16 05:22 | Discharge Summary ---
Diagnosis/Chief Complaint Date of Admission Feb 02, 2021 at 17:00 Date of Discharge Discharge Date: Feb 16, 2021 Discharge Diagnosis Assessment: Left femoral neck fracture Left humerus fracture Diabetes mellitus moderate control with hemoglobin A1c 8.6 Hyperlipidemia Hypertension Cognitive deficit slums score is 25/30 Sundowning and nighttime confusion on 02/04/2021 Acute hypokalemia added supplement on admission Postoperative anemia hemoglobin 11 Postop constipation now resolved Urinary retention acute on chronic requiring Guerrero catheter Plan: Blood sugar control Pain control Bowel regimen Monitor confusion 02/05/2021: Continue pain control Urinary catheter plan 02/06/2021: Urology appreciated Aggressive rehab 02/07/2021: Close monitoring of glucose Monitor closely 02/08/2021: Continue aggressive treatment Pain control Monitor closely 02/09/2021: Decrease Urecholine Aggressive therapy Monitor sugars 02/10/2021: DC Urecholine and Flomax Monitor blood pressure and blood sugar 02/11/2021: Transfers are improved Overall improved Monitor blood sugars 02/12/2021: Improved status Monitor closely Sugars and blood pressures reviewed 02/13/21: Discharge plan for tomorrow Reviewed meds and labs Left Platform attachment for wheeled walker is required: Patient has a left hip fracture with TUTU and is using a wheeled walker. Patient has left olecranon fracture with sling and remains under a limited weight bear status. Patient requires the the platform for trunk support during ambulation since she is unable to use her left arm to bear weight. 02/14/2021: Supportive care Discharge planning Four-wheel walker with platform 02/15/2021: Discharge tomorrow DME all set up Discharge Summary Discharge Physical Examination Allergies: Coded Allergies: metformin (Verified Allergy, Unknown, 02/02/21) pantoprazole (Verified Allergy, Unknown, 02/02/21) Vitals & I&Os Vital Signs Date Time Temp Pulse Resp B/P (MAP) Pulse Ox O2 Delivery O2 Flow Rate FiO2 02/16/21 10:43 36.2 77 16 153/69 95 Room Air 0.00 General Appearance: Alert, Oriented X3, Cooperative Respiratory: Clear to Auscultation Cardiovascular: Regular Rate Abdominal: Normal Bowel Sounds Psych/Mental Status: Mental Status NL Hospital Course Was the Problem List Reviewed?: Yes Hospital Course: Pt had a lengthy hospital course after a total hip fracture and a left olecranon fracture resulting in the need to use assistive devices and aggressive rehab in order to return back to independent living. Her confusion resolved, labs remained stable, blood sugar and blood pressure remained good. Overall she was deemed stable for DC and home health orders and DC medications triple checked. Labs (last 24 hrs) Laboratory Tests 02/02/21 17:00: Lab Scanned Report LAB Reports 02/02/21 21:51: Glucometer 218H 02/03/21 05:41: Glucometer 106 02/03/21 05:55: White Blood Count 8.8, Red Blood Count 3.83, Hemoglobin 11.0L, Hematocrit 33L, Mean Corpuscular Volume 87, Mean Corpuscular Hemoglobin 29, Mean Corpuscular Hemoglobin Concent 33, Red Cell Distribution Width 13.6, Platelet Count 204, Mean Platelet Volume 11.0, Immature Granulocyte % (Auto) 0, Neutrophils (%) (Auto) 60, Lymphocytes (%) (Auto) 25, Monocytes (%) (Auto) 6, Eosinophils (%) (Auto) 8, Basophils (%) (Auto) 1, Neutrophils # (Auto) 5.3, Lymphocytes # (Auto) 2.2, Monocytes # (Auto) 0.5, Eosinophils # (Auto) 0.7H, Basophils # (Auto) 0.1, Immature Granulocyte # (Auto) 0.0, Sodium Level 143, Potassium Level 3.0L, Chloride Level 106, Carbon Dioxide Level 27, Anion Gap 10, Blood Urea Nitrogen 14, Creatinine 0.72, Estimat Glomerular Filtration Rate > 60, BUN/Creatinine Ratio 19, Glucose Level 108H, Mean Blood Glucose 200H, Hemoglobin A1c 8.6H, Deon cium Level 8.9, Corrected Calcium 9.5, Total Bilirubin 0.6, Aspartate Amino Transf (AST/SGOT) 33, Alanine Aminotransferase (ALT/SGPT) 19, Alkaline Phosphatase 57, Total Protein 5.8L, Albumin 3.3, Procalcitonin 0.07 02/03/21 10:04: Lactic Acid Level 2.09*H 02/03/21 10:51: Glucometer 351H 02/03/21 10:55: Urine Color YELLOW, Urine Clarity CLEAR, Urine pH 6.0, Urine Specific [place] 1.010L, Urine Protein NEGATIVE, Urine Glucose (UA) 3+H, Urine Ketones NEGATIVE, Urine Nitrite NEGATIVE, Urine Bilirubin NEGATIVE, Urine Urobilinogen 0.2, Urine Leukocyte Esterase NEGATIVE, Urine RBC (Auto) 1+H, Urine RBC 2-5H, Urine WBC RARE, Urine Squamous Epithelial Cells 0-2, Urine Crystals NONE, Urine Bacteria NEGATIVE, Urine Casts NONE, Urine Mucus NEGATIVE, Urine Culture Indicated NO 02/03/21 12:30: Lactic Acid Level 1.26 02/03/21 15:37: Glucometer 174H 02/03/21 20:23: Glucometer 190H 02/04/21 05:14: Glucometer 181H 02/04/21 11:00: Glucometer 250H 02/04/21 15:29: Glucometer 237H 02/04/21 20:23: Glucometer 148H 02/05/21 05:42: Glucometer 144H 02/05/21 10:49: Glucometer 182H 02/05/21 15:48: Glucometer 220H 02/05/21 20:50: Glucometer 202H 02/06/21 05:23: Glucometer 130H 02/06/21 05:37: White Blood Count 8.7, Red Blood Count 3.30L, Hemoglobin 9.6L, Hematocrit 29L, Mean Corpuscular Volume 88, Mean Corpuscular Hemoglobin 29, Mean Corpuscular Hemoglobin Concent 33, Red Cell Distribution Width 13.6, Platelet Count 211, Mean Platelet Volume 11.7, Immature Granulocyte % (Auto) 1, Neutrophils (%) (Auto) 52, Lymphocytes (%) (Auto) 34, Monocytes (%) (Auto) 8, Eosinophils (%) (Auto) 5, Basophils (%) (Auto) 1, Neutrophils # (Auto) 4.6, Lymphocytes # (Auto) 3.0, Monocytes # (Auto) 0.7, Eosinophils # (Auto) 0.4H, Basophils # (Auto) 0.1, Immature Granulocyte # (Auto) 0.0, Sodium Level 140, Potassium Level 3.7, Chlori de Level 106, Carbon Dioxide Level 26, Anion Gap 8, Blood Urea Nitrogen 12, Creatinine 0.69, Estimat Glomerular Filtration Rate > 60, BUN/Creatinine Ratio 17, Glucose Level 138H, Calcium Level 8.9, Corrected Calcium 9.8, Total Bilirubi n 0.6, Aspartate Amino Transf (AST/SGOT) 29, Alanine Aminotransferase (ALT/SGPT) 27, Alkaline Phosphatase 58, Total Protein 5.0L, Albumin 2.9L 02/06/21 10:45: Glucometer 207H 02/06/21 15:35: Glucometer 168H 02/06/21 21:15: Glucometer 254H 02/07/21 05:39: Glucometer 158H 02/07/21 10:53: Glucometer 246H 02/07/21 15:53: Glucometer 218H 02/07/21 21:00: Glucometer 154H 02/08/21 05:01: Glucometer 167H 02/08/21 10:45: Glucometer 223H 02/08/21 15:49: Glucometer 176H 02/08/21 21:25: Glucometer 191H 02/09/21 05:17: Glucometer 117H 02/09/21 11:14: Glucometer 179H 02/09/21 16:29: Glucometer 294H 02/09/21 20:16: Glucometer 185H 02/10/21 05:44: Glucometer 151H 02/10/21 10:57: Glucometer 244H 02/10/21 16:21: Glucometer 185H 02/10/21 20:29: Glucometer 205H 02/11/21 06:29: Glucometer 141H 02/11/21 11:21: Glucometer 187H 02/11/21 16:12: Glucometer 180H 02/11/21 20:27: Glucometer 177H 02/12/21 06:16: Glucometer 148H 02/12/21 12:17: Glucometer 200H 02/12/21 15:25: Glucometer 251H 02/12/21 21:26: Glucometer 122H 02/13/21 05:51: White Blood Count 9.9, Red Blood Count 3.87, Hemoglobin 11.2L, Hematocrit 35, Mean Corpuscular Volume 90, Mean Corpuscular Hemoglobin 29, Mean Corpuscular Hemoglobin Concent 32, Red Cell Distribution Width 14.6H, Platelet Count 372, Mean Platelet Volume 10.7, Immature Granulocyte % (Auto) 0, Neutrophils (%) (Auto) 59, Lymphocytes (%) (Auto) 30, Monocytes (%) (Auto) 6, Eosinophils (%) (Auto) 4, Basophils (%) (Auto) 1, Neutrophils # (Auto) 5.8, Lymphocytes # (Auto) 2.9, Monocytes # (Auto) 0.6, Eosinophils # (Auto) 0.4H, Basophils # (Auto) 0.1, Immature Granulocyte # (Auto) 0.0, Sodium Level 139, Potassium Level 4.0, Chloride Level 105, Carbon Dioxide Level 27, Anion Gap 7, Blood Urea Nitrogen 11, Creatinine 0.84, Estimat Glomerular Filtration Rate 66, BUN/Creatinine Ratio 13, Glucose Level 141H, Calcium Level 9.4, Corrected Calcium 10.0, Total Bilirubin 0.5, Aspartate Amino Transf (AST/SGOT) 16, Alanine Aminotransferase (ALT/SGPT) 14, Alkaline Phosphatase 83, Total Protein 6.0L, Albumin 3.3 02/13/21 10:47: Glucometer 239H 02/13/21 16:55: Glucometer 144H 02/13/21 22:00: Glucometer 208H 02/14/21 05:39: Glucometer 149H 02/14/21 10:51: Glucometer 179H 02/14/21 16:20: Glucometer 194H 02/14/21 20:04: Glucometer 204H 02/15/21 05:25: Glucometer 153H 02/15/21 10:43: Glucometer 219H 02/15/21 16:09: Glucometer 159H 02/15/21 20:05: Glucometer 197H 02/16/21 05:30: Glucometer 130H Pending Labs Laboratory Tests 02/02/21 17:00: Lab Scanned Report LAB Reports 02/02/21 21:51: Glucometer 218 02/03/21 05:41: Glucometer 106 02/03/21 05:55: White Blood Count 8.8, Red Blood Count 3.83, Hemoglobin 11.0, Hematocrit 33, Mean Corpuscular Volume 87, Mean Corpuscular Hemoglobin 29, Mean Corpuscular Hemoglobin Concent 33, Red Cell Distribution Width 13.6, Platelet Count 204, Mean Platelet Volume 11.0, Immature Granulocyte % (Auto) 0, Neutrophils (%) (Auto) 60, Lymphocytes (%) (Auto) 25, Monocytes (%) (Auto) 6, Eosinophils (%) (Auto) 8, Basophils (%) (Auto) 1, Neutrophils # (Auto) 5.3, Lymphocytes # (Auto) 2.2, Monocytes # (Auto) 0.5, Eosinophils # (Auto) 0.7, Basophils # (Auto) 0.1, Immature Granulocyte # (Auto) 0.0, Sodium Level 143, Potassium Level 3.0, Chloride Level 106, Carbon Dioxide Level 27, Anion Gap 10, Blood Urea Nitrogen 14, Creatinine 0.72, Estimat Glomerular Filtration Rate > 60, BUN/Creatinine Ratio 19, Glucose Level 108, Mean Blood Glucose 200, Hemoglobin A1c 8.6, Calcium Level 8.9, Corrected Calcium 9.5, Total Bilirubin 0.6, Aspartate Amino Transf (AST/SGOT) 33, Alanine Aminotransferase (ALT/SGPT) 19, Alkaline Phosphatase 57, Total Protein 5.8, Albumin 3.3, Procalcitonin 0.07 02/03/21 10:04: Lactic Acid Level 2.09 02/03/21 10:51: Glucometer 351 02/03/21 10:55: Urine Color YELLOW, Urine Clarity CLEAR, Urine pH 6.0, Urine Specific [place] 1.010, Urine Protein NEGATIVE, Urine Glucose (UA) 3+, Urine Ketones NEGATIVE, Urine Nitrite NEGATIVE, Urine Bilirubin NEGATIVE, Urine Urobilinogen 0.2, Urine Leukocyte Esterase NEGATIVE, Urine RBC (Auto) 1+, Urine RBC 2-5, Urine WBC RARE, Urine Squamous Epithelial Cells 0-2, Urine Crystals NONE, Urine Bacteria NEGATIVE, Urine Casts NONE, Urine Mucus NEGATIVE, Urine Culture Indicated NO 02/03/21 12:30: Lactic Acid Level 1.26 02/03/21 15:37: Glucometer 174 02/03/21 20:23: Glucometer 190 02/04/21 05:14: Glucometer 181 02/04/21 11:00: Glucometer 250 02/04/21 15:29: Glucometer 237 02/04/21 20:23: Glucometer 148 02/05/21 05:42: Glucometer 144 02/05/21 10:49: Glucometer 182 02/05/21 15:48: Glucometer 220 02/05/21 20:50: Glucometer 202 02/06/21 05:23: Glucometer 130 02/06/21 05:37: White Blood Count 8.7, Red Blood Count 3.30, Hemoglobin 9.6, Hematocrit 29, Mean Corpuscular Volume 88, Mean Corpuscular Hemoglobin 29, Mean Corpuscular Hemoglobin Concent 33, Red Cell Distribution Width 13.6, Platelet Count 211, Mean Platelet Volume 11.7, Immature Granulocyte % (Auto) 1, Neutrophils (%) (Auto) 52, Lymphocytes (%) (Auto) 34, Monocytes (%) (Auto) 8, Eosinophils (%) (Auto) 5, Basophils (%) (Auto) 1, Neutrophils # (Auto) 4.6, Lymphocytes # (Auto) 3.0, Monocytes # (Auto) 0.7, Eosinophils # (Auto) 0.4, Basophils # (Auto) 0.1, Immature Granulocyte # (Auto) 0.0, Sodium Level 140, Potassium Level 3.7, Chloride Level 106, Carbon Dioxide Level 26, Anion Gap 8, Blood Urea Nitrogen 12, Creatinine 0.69, Estimat Glomerular Filtration Rate > 60, BUN/Creatinine Ratio 17, Glucose Level 138, Calcium Level 8.9, Corrected Calcium 9.8, Total Bilirubin 0.6, Aspartate Amino Transf (AST/SGOT) 29, Alanine Aminotransferase (ALT/SGPT) 27, Alkaline Phosphatase 58, Total Protein 5.0, Albumin 2.9 02/06/21 10:45: Glucometer 207 02/06/21 15:35: Glucometer 168 02/06/21 21:15: Glucometer 254 02/07/21 05:39: Glucometer 158 02/07/21 10:53: Glucometer 246 02/07/21 15:53: Glucometer 218 02/07/21 21:00: Glucometer 154 02/08/21 05:01: Glucometer 167 02/08/21 10:45: Glucometer 223 02/08/21 15:49: Glucometer 176 02/08/21 21:25: Glucometer 191 02/09/21 05:17: Glucometer 117 02/09/21 11:14: Glucometer 179 02/09/21 16:29: Glucometer 294 02/09/21 20:16: Glucometer 185 02/10/21 05:44: Glucometer 151 02/10/21 10:57: Glucometer 244 02/10/21 16:21: Glucometer 185 02/10/21 20:29: Glucometer 205 02/11/21 06:29: Glucometer 141 02/11/21 11:21: Glucometer 187 02/11/21 16:12: Glucometer 180 02/11/21 20:27: Glucometer 177 02/12/21 06:16: Glucometer 148 02/12/21 12:17: Glucometer 200 02/12/21 15:25: Glucometer 251 02/12/21 21:26: Glucometer 122 02/13/21 05:51: White Blood Count 9.9, Red Blood Count 3.87, Hemoglobin 11.2, Hematocrit 35, Mean Corpuscular Volume 90, Mean Corpuscular Hemoglobin 29, Mean Corpuscular Hemoglobin Concent 32, Red Cell Distribution Width 14.6, Platelet Count 372, Mean Platelet Volume 10.7, Immature Granulocyte % (Auto) 0, Neutrophils (%) (Auto) 59, Lymphocytes (%) (Auto) 30, Monocytes (%) (Auto) 6, Eosinophils (%) (Auto) 4, Basophils (%) (Auto) 1, Neutrophils # (Auto) 5.8, Lymphocytes # (Auto) 2.9, Monocytes # (Auto) 0.6, Eosinophils # (Auto) 0.4, Basophils # (Auto) 0.1, Immature Granulocyte # (Auto) 0.0, Sodium Level 139, Potassium Level 4.0, Chloride Level 105, Carbon Dioxide Level 27, Anion Gap 7, Blood Urea Nitrogen 11, Creatinine 0.84, Estimat Glomerular Filtration Rate 66, BUN/Creatinine Ratio 13, Glucose Level 141, Calcium Level 9.4, Corrected Calcium 10.0, Total Bilirubin 0.5, Aspartate Amino Transf (AST/SGOT) 16, Alanine Aminotransferase (ALT/SGPT) 14, Alkaline Phosphatase 83, Total Protein 6.0, Albumin 3.3 02/13/21 10:47: Glucometer 239 02/13/21 16:55: Glucometer 144 02/13/21 22:00: Glucometer 208 02/14/21 05:39: Glucometer 149 02/14/21 10:51: Glucometer 179 02/14/21 16:20: Glucometer 194 02/14/21 20:04: Glucometer 204 02/15/21 05:25: Glucometer 153 02/15/21 10:43: Glucometer 219 02/15/21 16:09: Glucometer 159 02/15/21 20:05: Glucometer 197 02/16/21 05:30: Glucometer 130 Discharge Home Medications: Active Scripts Active Humulin N (Insulin NPH Human Isophane) 100 Unit/1 Ml Vial 15 Unit SQ BID 30 Days Famotidine 20 Mg Tablet 20 Mg PO DAILY Klor-Con 10 (Potassium Chloride) 10 Meq Tablet.er 10 Meq PO DAILY Mirtazapine 15 Mg Tab.rapdis 7.5 Mg PO HS Oxyir Tablet (Oxycodone HCl) 5 Mg Tab 5 Mg PO Q4H PRN Amlodipine Besylate 5 Mg Tablet 5 Mg PO DAILY Metoprolol Tartrate 25 Mg Tablet 25 Mg PO BID Simvastatin 10 Mg Tablet 10 Mg PO HS Cyclobenzaprine HCl 10 Mg Tablet 5 Mg PO TID PRN ALPRAZolam 0.25 Mg Tablet 0.25 Mg PO DAILY PRN Reported Novolin R (Insulin Regular, Human) 100 Unit/1 Ml Vial Unit SQ SLIDING/SCALE PRN Omeprazole 20 Mg Capsule.dr 20 Mg PO DAILY Losartan Potassium 100 Mg Tablet 100 Mg PO DAILY Glipizide ER (Glipizide) 10 Mg Tab.er.24 10 Mg PO DAILY Hydrochlorothiazide 25 Mg Tablet 25 Mg PO DAILY Venlafaxine HCl ER (Venlafaxine HCl) 75 Mg Cap.er.24h 75 Mg PO DAILY Instructions to patient/family Please see electronic discharge instructions given to patient. Diagnosis/Problems Diagnosis/Problems (1) Fracture of femoral neck, left JEFF WASHBURN DO Feb 16, 2021 05:22
[2021-02-16] MEDS: inSUlin ASPART (NovoLOG) 1 UNIT/0.01 ML (CHARGE PER UNIT) SC SCH (05:42)
[2021-02-16] MEDS: glipiZIDE XL 5 MG (GLUCOTROL XL) TAB PO SCH (06:07)
[2021-02-16] MEDS: VENlafaxine XR 75 MG (EFFEXOR XR) CAP PO SCH (06:07)
[2021-02-16 07:29] VITALS: BP 153/69
[2021-02-16] MEDS: meTOprolol TARTRATE 25 MG (LOPRESSOR) TABLET PO SCH (08:10)
[2021-02-16] MEDS: KCL 10 MEQ TAB (MICRO K) PO SCH (08:10)
[2021-02-16] MEDS: amLODIPine 5 MG (NORVASC) TAB PO SCH (08:10)
[2021-02-16] MEDS: FAMOTIDINE 20 MG (PEPCID) TABLET PO SCH (08:10)
[2021-02-16] MEDS: DOCUSATE SODIUM 100 MG (COLACE) CAP PO SCH (08:10)
[2021-02-16] MEDS: SENNA W/DOCUSATE (SENOKOT S) TABLET PO SCH (08:10)
[2021-02-16] MEDS: inSUlin NPH (NovoLIN N) 1 UNIT/0.01 ML (CHARGE PER UNIT) SQ SCH (08:10)
[2021-02-16] MEDS: LOSARTAN 100 MG (COZAAR) TABLET PO SCH (08:10)
[2021-02-16] MEDS: polyethylene glycoL POWDER 17 GM (MIRALAX) PACK PO SCH (08:11)
--- NOTE | 2021-02-16 08:39 | Therapy Team Discharge Summary ---
Therapy Discharge Summary Discharge Recommendations Date of Discharge Occupational Therapy Decreased Activ Tolerance, Impaired I ADL's, Impaired Self-Care Skills Speech-Language Pathology The patient was admitted to the ARU due to a fall which resulted in a fractured arm and leg. The patient was given the SLUMS upon admission which indicated a mild cognitive deficit. Patient received skilled ST for maximizing cognitive function for a safer return home. She has progressed well but does continue to have mild memory and recall of information deficits. Patient is discharging to her home where she lives with her . He will assist her with her daily needs. She has other family members who will be assisting her as well. She is scheduled to receive home health services with nursing and continued therapy. PT Manager Cosmetics Goals Half-Way Goals PT Manager Cosmetics Goals Time Frame: Feb 17, 2021 Roll Left to Right (QC): 6 Sit to Lying (QC): 6 Lying-Sitting on Side/Bed(QC): 6 Sit to Stand (QC): 6 Chair/Lwf-ya-Glhpy Xfer(QC): 6 Car Transfer (QC): 5 Does the Patient Walk: Yes Walk 10 feet (QC): 5 Walk 10ft-Uneven Surface(QC): 5 Walk 50ft with 2 Turns (QC): 5 Walk 150 ft (QC): 5 Wheel 50 feet with 2 turns (QC: 9 1 Step (curb) (QC): 5 4 Steps (QC): 5 12 Steps (QC): 88 Picking up an Object (QC): 88 OT Half-Way Goals Manager Cosmetics Goals Time Frame: Feb 17, 2021 Eating (QC): 6 Oral Hygiene (QC): 6 Shower/Bathe Self (QC): 6 Upper Body Dressing (QC): 6 Lower Body Dressing (QC): 6 On/Off Footwear (QC): 6 Toileting Hygiene (QC): 6 Toilet/Commode Transfer (QC): 5 Additional Goals: 1-Demonstrate ADL Tasks, 2-Verbalize Understanding, 3- ImproveStrength/Tamiko 1=Demonstrate adherence to instructed precautions during ADL tasks. 2=Patient will verbalize/demonstrate understanding of assistive devices/modifications for ADL. 3=Patient will improve strength/tolerance for activity to enable patient to perform ADL's. Speech Half-Way Goals Half-Way Goals Patient will demonstrate the ability to communicate and complete daily tasks with minimal assist. CONSTANCE MOURA Feb 16, 2021 08:39
--- NOTE | 2021-02-16 08:42 | Therapy Team Discharge Summary ---
Therapy Discharge Summary Discharge Recommendations Date of Discharge 02-16-21 Therapy D/C Recommendations: Home w/ Family Support, Occupational Therapy Home Care Occupational Therapy Pt. has been seen in inpt. rehab to increase overall strength and independence with daily tasks. Pt. did not meet goals, but did make progress in all areas. Pt. requires min/mod assist with bathing/dressing/toileting and ADL transfers. Family has been educated in how to assist her at home, and pt. has been educated in how to use adaptive equipment due to hip precautions. Requires cues at times to remember hip safety. Family has purchased all needed equipment, and will be with pt. at home. Pt. would benefit from continued home health OT to continue safety and strength training. Pt. to discharge this date with full family support. Decreased Activ Tolerance, Impaired I ADL's, Impaired Self-Care Skills PT Cement Handler Goals Cement Handler Goals PT Cement Handler Goals Time Frame: Feb 17, 2021 Roll Left to Right (QC): 6 Sit to Lying (QC): 6 Lying-Sitting on Side/Bed(QC): 6 Sit to Stand (QC): 6 Chair/Soc-vf-Ilozm Xfer(QC): 6 Car Transfer (QC): 5 Does the Patient Walk: Yes Walk 10 feet (QC): 5 Walk 10ft-Uneven Surface(QC): 5 Walk 50ft with 2 Turns (QC): 5 Walk 150 ft (QC): 5 Wheel 50 feet with 2 turns (QC: 9 1 Step (curb) (QC): 5 4 Steps (QC): 5 12 Steps (QC): 88 Picking up an Object (QC): 88 OT Mcc Goals Mcc Goals Time Frame: Feb 17, 2021 Eating (QC): 6 (not met- needs set up) Oral Hygiene (QC): 6 (not met) Shower/Bathe Self (QC): 6 (not met) Upper Body Dressing (QC): 6 (not met) Lower Body Dressing (QC): 6 (not met) On/Off Footwear (QC): 6 Toileting Hygiene (QC): 6 (not met) Toilet/Commode Transfer (QC): 5 (not met) Additional Goals: 1-Demonstrate ADL Tasks, 2-Verbalize Understanding, 3- ImproveStrength/Tamiko 1=Demonstrate adherence to instructed precautions during ADL tasks. 2=Patient will verbalize/demonstrate understanding of assistive device s/modifications for ADL. 3=Patient will improve strength/tolerance for activity to enable patient to perform ADL's. Speech Mcc Goals Mcc Goals Patient will demonstrate the ability to communicate and complete daily tasks with minimal assist. ERIKA ZELAYA OT Feb 16, 2021 08:42
[2021-02-16 10:43] VITALS: BP 153/69
--- NOTE | 2021-02-16 14:00 | Therapy Team Discharge Summary ---
Therapy Discharge Summary Discharge Recommendations Date of Discharge Feb 16, 2021 at 11:03 Therapy D/C Recommendations: Home w/ Family Support, Occupational Therapy Home Care Physical Therapy Patient came to rehab with a left hip fx and TUTU. Upon evaluation patient performed bed mobility and supine <-> sit with dependence, transfers and sit <-> stand with max assist, ambulated 10' with a rolling platform walker with max assist (including 10' over an uneven surface), patient used a platform walker because of a left olecranon fx. Patient has been performing bed mobility and transfer training, balance and endurance training, functional strengthening, gait training, and education. Patient has made good progress and has met all of her snf goals. Now, patient performs bed mobility and transfers with independence, car transfer independent, ambulates 150' with a rolling platform walker with independence (including 50' with at least 2 turns of 90 degrees and 10' over an uneven surface), and can go up and down 4 steps using 1 handrail with setup. Patient has been discharged from this facility and will be discharged from PT at this time. Occupational Therapy Decreased Activ Tolerance, Impaired I ADL's, Impaired Self-Care Skills PT Pocket Creaser Goals Halfway Goals PT Pocket Creaser Goals Time Frame: Feb 17, 2021 Roll Left to Right (QC): 6 Sit to Lying (QC): 6 Lying-Sitting on Side/Bed(QC): 6 Sit to Stand (QC): 6 Chair/Wzn-fn-Aghzu Xfer(QC): 6 Car Transfer (QC): 5 Does the Patient Walk: Yes Walk 10 feet (QC): 5 Walk 10ft-Uneven Surface(QC): 5 Walk 50ft with 2 Turns (QC): 5 Walk 150 ft (QC): 5 Wheel 50 feet with 2 turns (QC: 9 1 Step (curb) (QC): 5 4 Steps (QC): 5 12 Steps (QC): 88 Picking up an Object (QC): 88 OT Halfway Goals Halfway Goals Time Frame: Feb 17, 2021 Eating (QC): 6 (not met- needs set up) Oral Hygiene (QC): 6 (not met) Shower/Bathe Self (QC): 6 (not met) Upper Body Dressing (QC): 6 (not met) Lower Body Dressing (QC): 6 (not met) On/Off Footwear (QC): 6 Toileting Hygiene (QC): 6 (not met) Toilet/Commode Transfer (QC): 5 (not met) Additional Goals: 1-Demonstrate ADL Tasks, 2-Verbalize Understanding, 3- ImproveStrength/Tamiko 1=Demonstrate adherence to instructed precautions during ADL tasks. 2=Patient will verbalize/demonstrate understanding of assistive devices/modifications for ADL. 3=Patient will improve strength/tolerance for activity to enable patient to perform ADL's. Speech Halfway Goals Pocket Creaser Goals Patient will demonstrate the ability to communicate and complete daily tasks w ith minimal assist. MITUL MERRILL PT Feb 16, 2021 14:00
== END 2021-02-16 11:03 | disposition home health service (06) | DRG 561 ==
PROVIDERS: ADMIT Internal Medicine; ATTEND Internal Medicine
DX: S72.012D Unspecified intracapsular fracture of left femur, subsequent encounter for closed fracture with routine healing (principal); S52.022D Displaced fracture of olecranon process without intraarticular extension of left ulna, subsequent encounter for closed fracture with routine healing; Z91.81 History of falling; E11.65 Type 2 diabetes mellitus with hyperglycemia; R33.9 Retention of urine, unspecified; R41.0 Disorientation, unspecified; R41.89 Other symptoms and signs involving cognitive functions and awareness; K21.9 Gastro-esophageal reflux disease without esophagitis; F41.9 Anxiety disorder, unspecified; F32.9 Major depressive disorder, single episode, unspecified; I10 Essential (primary) hypertension; E78.5 Hyperlipidemia, unspecified; E87.6 Hypokalemia; D64.9 Anemia, unspecified; K59.09 Other constipation; R32 Unspecified urinary incontinence; Z79.4 Long term (current) use of insulin; W01.0XXD Fall on same level from slipping, tripping and stumbling without subsequent striking against object, subsequent encounter
CPT/HCPCS: 36415; 71045; 80053; 81000; 82947; 83036; 83605; 84145; 85025